=== PATIENT | male | born 1950 | race Two or more races ===

== ENCOUNTER 2016-06-17 00:56 | Emergency (ER) | payer OTHER ==
[~2016-06-17] VITALS: Ht 167.6 cm; Wt 113.4 kg
[~2016-06-17 00:56] MED LIST: ALBU18; ASPI81CH43; AZIT500T4 PO; BENA10TA3; BUDEPOW26; CLOT1CRE13; FLUO10TA18; FUR40T PO; GABA300C; GEMF600T; GLIP10TA82; INSUPOW; IPRA0.035; METO-169; METO2.5T11 PO; NITR0.4S31; OMEP20TA30; POTA10CA29; ROSU40TA; TER5T; [UNRECOGNIZED DRUG - CODE]; [UNRECOGNIZED DRUG - CODE]
[2016-06-17 03:07] LABS: Basophils # (auto) 0 uL; Basophils % (auto) 0.7 % (0.0-2.0); DEFINITIVE VIEW TRANSMISSION; Eosinophils # (auto) 0.1 uL; Eosinophils % (auto) 2.9 % (0.0-7.0); Hematocrit 29.1 % (41.0-53.0); Hemoglobin 9.3 g/dL (13.5-17.5); Lymphocytes # (auto) 1.4 uL; Lymphocytes % (auto) 32.5 % (10.0-50.0); Mean Corpuscular Hemoglobin 30.2 pg (28.0-32.0); Mean Corpuscular Hgb Conc. 31.8 g/dL (32.0-36.0); Monocytes # (auto) 0.6 uL; Monocytes % (auto) 14.6 % (0.0-12.0); Neutrophils # (auto) 2.2 uL; Neutrophils % (auto) 49.3 % (37.0-80.0); Platelet Count (auto) 131 10^3/uL (140-450); Red Cell Distribution Width 19.2 % (11.6-16.0); SUSPECT VIEW TRANSMISSION; White Blood Cell 4.4 10^3/uL (4.4-10.8)
[2016-06-17 03:09] LABS: Albumin 2.9 g/dL (3.4-5.0); Calcium 8.5 mg/dL (8.5-10.1); Magnesium 2.3 mg/dL (1.6-2.6); Potassium 3.9 mmol/L (3.5-5.1)
[2016-06-17 03:13] LABS: Bilirubin, Total 0.5 mg/dL (0.2-1.0); Total Protein 6.2 g/dL (6.4-8.2)
[2016-06-17 04:08] LABS: Temperature: 20.5 C (20.0-25.0)
[2016-06-17] MEDS ORDERED: MORPHINE SULFATE 4 MG/ML SYRG IV ONE (06:15)
[2016-06-17] MEDS ORDERED: ONDANSETRON HCL 4 MG/2 ML VIAL IV ONE (06:15)
[2016-06-17] MEDS ORDERED: ASPirin 81 mg TAB PO ONE (06:30)
[2016-06-17] MEDS ORDERED: ENOXAPARIN SOD 120 MG/0.8 ML SYRINGE SC ONE (08:00)
[2016-06-17 08:15] VITALS: BP 139/89
== END 2016-06-17 08:46 | disposition home or self-care (01) ==
LOC: ER 00:57
DX: I50.9 Heart failure, unspecified (principal); I11.0 Hypertensive heart disease with heart failure; I25.810 Atherosclerosis of coronary artery bypass graft(s) without angina pectoris
CPT/HCPCS: 36415; 71010; 80053; 83735; 83880; 84484; 85025; 93005; 94761; 96372; 96374; 96375; 99285; J1650; J2270; J2405

== ENCOUNTER 2016-07-02 22:03 | Emergency (ER) | payer OTHER ==
[2016-07-02 23:12] LABS: Basophils # (auto) 0 uL; Basophils % (auto) 0.6 % (0.0-2.0); Eosinophils # (auto) 0.1 uL; Hematocrit 33.1 % (41.0-53.0); Hemoglobin 10.7 g/dL (13.5-17.5); Lymphocytes # (auto) 1.2 uL; Lymphocytes % (auto) 22.9 % (10.0-50.0); Mean Corpuscular Hemoglobin 30.1 pg (28.0-32.0); Mean Corpuscular Hgb Conc. 32.4 g/dL (32.0-36.0); Mean Corpuscular Volume 92.9 fL (80.0-100.0); Mean Platelet Volume 7.1 fL (7.4-10.4); Monocytes % (auto) 18.1 % (0.0-12.0); Neutrophils % (auto) 56.4 % (37.0-80.0); Platelet Count (auto) 164 10^3/uL (140-450); Red Cell Distribution Width 17.6 % (11.6-16.0); White Blood Cell 5.3 10^3/uL (4.4-10.8)
[2016-07-02 23:34] LABS: BUN/Creatinine Ratio 31.1; Calcium 8.5 mg/dL (8.5-10.1); Magnesium 1.9 mg/dL (1.6-2.6); Potassium 4.4 mmol/L (3.5-5.1)
[2016-07-02 23:35] LABS: Bilirubin, Total 0.7 mg/dL (0.2-1.0); Total Protein 6.8 g/dL (6.4-8.2)
[2016-07-02 23:40] LABS: B-Type Natriuretic Peptide 33.76 pg/mL (0-100)
[2016-07-02 23:50] LABS: Partial Thromboplastin Time 26.9 sec (22.64-33.71); Prothrombin Time 12.1 sec (9.37-12.3)
[2016-07-02 23:51] LABS: Temperature: 22.5 C (20.0-25.0)
[2016-07-02 23:57] LABS: INR 1.17 (0.9-1.15)
[2016-07-03 00:24] VITALS: BP 117/64
== END 2016-07-03 02:04 | disposition home or self-care (01) ==
LOC: EDBD 22:03 → ER 22:03
DX: R07.89 Other chest pain (principal); K29.70 Gastritis, unspecified, without bleeding; E86.0 Dehydration; I25.810 Atherosclerosis of coronary artery bypass graft(s) without angina pectoris; Z95.1 Presence of aortocoronary bypass graft; I11.0 Hypertensive heart disease with heart failure; I50.9 Heart failure, unspecified; E11.9 Type 2 diabetes mellitus without complications; J44.9 Chronic obstructive pulmonary disease, unspecified; E78.5 Hyperlipidemia, unspecified; Z90.49 Acquired absence of other specified parts of digestive tract; Z79.4 Long term (current) use of insulin; Z79.82 Long term (current) use of aspirin; Z88.6 Allergy status to analgesic agent
CPT/HCPCS: 36415; 71010; 80053; 83735; 83880; 84443; 84484; 85025; 85049; 85379; 85610; 85730; 93005; 94761; 99285; J7030

== ENCOUNTER 2016-08-05 21:06 | Emergency (ER) | payer OTHER ==
[~2016-08-05] VITALS: Ht 170.2 cm; Wt 117.9 kg
[~2016-08-05 21:06] MED LIST changes: -AZIT500T4 PO; -BENA10TA3; +BENA5TAB3 PO; -FUR40T PO; +FURO40TA4 PO; -GABA300C; +GABA300C PO; +MAGN400C2 PO; -METO-169; -METO2.5T11 PO; -POTA10CA29; +SPIR50TA23 PO; +TIOTCAP INH; +TRAM50TA2 PO
[2016-08-05 21:52] LABS: Basophils # (auto) 0 uL; Basophils % (auto) 0.6 % (0.0-2.0); Eosinophils # (auto) 0.2 uL; Eosinophils % (auto) 3.3 % (0.0-7.0); Hematocrit 31.2 % (41.0-53.0); Hemoglobin 10.4 g/dL (13.5-17.5); Lymphocytes # (auto) 1.4 uL; Lymphocytes % (auto) 24.8 % (10.0-50.0); Mean Corpuscular Hemoglobin 30.6 pg (28.0-32.0); Mean Corpuscular Hgb Conc. 33.3 g/dL (32.0-36.0); Mean Corpuscular Volume 91.9 fL (80.0-100.0); Mean Platelet Volume 7.2 fL (7.4-10.4); Monocytes # (auto) 0.4 uL; Monocytes % (auto) 8.1 % (0.0-12.0); Neutrophils # (auto) 3.5 uL; Neutrophils % (auto) 63.2 % (37.0-80.0); Platelet Count (auto) 213 10^3/uL (140-450); Red Cell Distribution Width 17.9 % (11.6-16.0); White Blood Cell 5.5 10^3/uL (4.4-10.8)
[2016-08-05 22:20] LABS: Albumin 2.9 g/dL (3.4-5.0); BUN/Creatinine Ratio 19.1; Bilirubin, Total 0.5 mg/dL (0.2-1.0); Calcium 8.7 mg/dL (8.5-10.1); Potassium 3.8 mmol/L (3.5-5.1); Total Protein 6.7 g/dL (6.4-8.2)
[2016-08-06 00:25] LABS: B-Type Natriuretic Peptide 215.98 pg/mL (0-100); Temperature: 22.5 C (20.0-25.0)
[2016-08-06] MEDS ORDERED: FUROSEMIDE 40 MG/4 ML VIAL IV ONE (08:45)
[2016-08-06 12:15] VITALS: BP 128/67
== END 2016-08-06 14:22 | disposition home or self-care (01) ==
LOC: ER 21:14
DX: I11.0 Hypertensive heart disease with heart failure (principal); I50.20 Unspecified systolic (congestive) heart failure; J44.9 Chronic obstructive pulmonary disease, unspecified; E78.5 Hyperlipidemia, unspecified; I25.810 Atherosclerosis of coronary artery bypass graft(s) without angina pectoris; Z87.891 Personal history of nicotine dependence; Z79.82 Long term (current) use of aspirin; Z79.899 Other long term (current) drug therapy; Z88.6 Allergy status to analgesic agent; E11.9 Type 2 diabetes mellitus without complications; Z79.4 Long term (current) use of insulin; L03.119 Cellulitis of unspecified part of limb; R60.0 Localized edema
CPT/HCPCS: 36415; 71020; 80053; 82962; 83880; 84484; 85025; 87040; 93970; 94761; 96374; 99285; J1940

== ENCOUNTER 2016-09-06 06:25 | Inpatient (IN) | payer OTHER ==
[~2016-09-06] VITALS: Ht 165.1 cm; Wt 110.9 kg
[~2016-09-06 06:25] MED LIST changes: -LEVO500T3 PO
[2016-09-06 07:32] LABS: Basophils # (auto) 0 uL; Basophils % (auto) 0.2 % (0.0-2.0); DEFINITIVE VIEW TRANSMISSION; Eosinophils # (auto) 0.3 uL; Eosinophils % (auto) 4.1 % (0.0-7.0); Hematocrit 40.5 % (41.0-53.0); Hemoglobin 13.2 g/dL (13.5-17.5); Lymphocytes # (auto) 1.6 uL; Lymphocytes % (auto) 23.9 % (10.0-50.0); Mean Corpuscular Hemoglobin 29.8 pg (28.0-32.0); Mean Corpuscular Hgb Conc. 32.7 g/dL (32.0-36.0); Mean Platelet Volume 8.3 fL (7.4-10.4); Monocytes # (auto) 0.7 uL; Monocytes % (auto) 10.1 % (0.0-12.0); Neutrophils % (auto) 61.7 % (37.0-80.0); Platelet Count (auto) 243 10^3/uL (140-450); White Blood Cell 6.5 10^3/uL (4.4-10.8)
[2016-09-06 07:39] LABS: Red Cell Distribution Width 20.1 % (11.6-16.0)
[2016-09-06 07:53] LABS: Albumin 3.6 g/dL (3.4-5.0); Anion Gap 10 (5-15); Aspartate Aminotransferase 41 U/L (15-37); BUN/Creatinine Ratio 16.8; Blood Urea Nitrogen 20 mg/dL (7-18); Calcium 9.3 mg/dL (8.5-10.1); Carbon Dioxide 29 mmol/L (21-32); Chloride 99 mmol/L (98-107); GFR African American 78 mL/min; GFR Non-African American 65 mL/min; Glucose 252 mg/dL (74-106); Magnesium 2.1 mg/dL (1.6-2.6); Potassium 3.1 mmol/L (3.5-5.1); Sodium 138 mmol/L (136-145)
[2016-09-06 07:58] LABS: Alkaline Phosphatase 143 U/L (45-117); Bilirubin, Total 2.1 mg/dL (0.2-1.0)
[2016-09-06 08:17] LABS: Platelet Estimate Adequate
[2016-09-06 08:18] LABS: Anisocytosis Slight; Ovalocytes FEW
[2016-09-06 09:49] LABS: Urine Bilirubin Negative (Negative); Urine Blood Negative /uL (Negative); Urine Color Yellow (Yellow); Urine Hyaline Cast FEW /lpf (0 - 2); Urine Ketone Negative (Negative); Urine Mucus FEW (None Seen); Urine Nitrite Negative (Negative); Urine RBC 2 /hpf (0 - 3); Urine Urobilinogen Normal (Negative); Urine WBC Clumps PRESENT /hpf (None Seen); Urine pH 5.5 (5.0-8.0)
[2016-09-06 10:00] LABS: Urine Glucose 3+ mg/dL (Normal)
[2016-09-06] MEDS ORDERED: SODIUM CHLORIDE 0.9% 1,000 ML IV ONE (10:22)
[2016-09-06] MEDS ORDERED: InsuLIN REG 1unit/0.01ml Soln (100units/ml) IV ONE (10:30)
[2016-09-06] MEDS ORDERED: CIPROFLOXACIN HCL 500 MG TAB PO ONE (10:30)
[2016-09-06] MEDS ORDERED: POTASSIUM CHL 10% (20 MEQ/15ML) ORAL SOLN PO ONE (11:00)
[2016-09-06] MEDS ORDERED: ENOXAPARIN SOD 40 MG/0.4 ML SYRINGE SC ONE (12:45)
[2016-09-06] MEDS ORDERED: ASPirin 81 mg TAB PO ONE (12:45)
[2016-09-06] MEDS ORDERED: DEXTROSE (50%) 50ML SYRG IV PRN (12:45)
[2016-09-06] MEDS ORDERED: ACETAMINOPHEN 500 MG TAB PO PRN (12:45)
[2016-09-06] MEDS ORDERED: NITROGLYCERIN 0.4 MG SL TAB SL PRN (12:45)
[2016-09-06] MEDS ORDERED: LORazepam 0.5 MG TAB PO PRN (12:45)
[2016-09-06] MEDS ORDERED: MORPHINE SULF INJ 2 MG/ML SYRINGE 1ML IV PRN ×2 (12:45)
[2016-09-06] MEDS ORDERED: TEMAZEPAM 15 MG CAP PO PRN (12:45)
[2016-09-06] MEDS ORDERED: PROMETHAZINE HCL 25 MG/ML 1ML IV PRN (12:45)
[2016-09-06] MEDS ORDERED: LACTULOSE 20Gm/30ML SOLN PO PRN (12:45)
[2016-09-06] MEDS ORDERED: cefTRIAXone 1GM/50ML D5W 50 ML IV ONE (12:45)
[2016-09-06] MEDS ORDERED: HYDROcodone-ACET 5/325MG TAB PO PRN (12:45)
[2016-09-06 15:47] LABS: Temperature: 23.3 C (20.0-25.0)
[2016-09-06] MEDS: SODIUM CHLORIDE 0.9% 1,000 ML IV SCH (17:04)
[2016-09-06] MEDS: ACCU-CHEK COMFORT CURVE STRIP VI SCH ×2 (17:08→22:08)
[2016-09-06] MEDS: InsuLIN REG 1unit/0.01ml Soln (100units/ml) SC SCH ×2 (17:13→22:10)
[2016-09-06 20:30] VITALS: BP 123/69
[2016-09-06 22:00] VITALS: BP 123/69
[2016-09-06] MEDS: FAMOTIDINE 20 MG TAB PO SCH (22:08)
[2016-09-06] MEDS ORDERED: HALOPERIDOL LACTATE 5 MG/ML INJ VIAL IM PRN ×2 (23:00→23:30)
[2016-09-07] VITALS (7 sets, daily range): BP systolic 106–134; BP diastolic 59–81
[2016-09-07] MEDS: SODIUM CHLORIDE 0.9% 1,000 ML IV SCH ×2 (01:11→09:39)
[2016-09-07 06:01] LABS: Basophils # (auto) 0 uL; Basophils % (auto) 0.6 % (0.0-2.0); DEFINITIVE VIEW TRANSMISSION; Eosinophils # (auto) 0.3 uL; Eosinophils % (auto) 5.3 % (0.0-7.0); Hematocrit 36.7 % (41.0-53.0); Hemoglobin 11.8 g/dL (13.5-17.5); Lymphocytes # (auto) 1.6 uL; Lymphocytes % (auto) 34.4 % (10.0-50.0); Mean Corpuscular Hemoglobin 29.3 pg (28.0-32.0); Mean Corpuscular Hgb Conc. 32.2 g/dL (32.0-36.0); Mean Platelet Volume 7.6 fL (7.4-10.4); Monocytes # (auto) 0.6 uL; Monocytes % (auto) 13.1 % (0.0-12.0); Neutrophils # (auto) 2.2 uL; Neutrophils % (auto) 46.6 % (37.0-80.0); Platelet Count (auto) 177 10^3/uL (140-450); Red Cell Distribution Width 19.2 % (11.6-16.0); White Blood Cell 4.8 10^3/uL (4.4-10.8)
[2016-09-07 06:26] LABS: Albumin 3.3 g/dL (3.4-5.0); BUN/Creatinine Ratio 21.4; Bilirubin, Total 1.2 mg/dL (0.2-1.0); Calcium 8.8 mg/dL (8.5-10.1); Potassium 3.3 mmol/L (3.5-5.1); Total Protein 7.2 g/dL (6.4-8.2)
[2016-09-07] MEDS: ACCU-CHEK COMFORT CURVE STRIP VI SCH ×4 (06:33→22:06)
[2016-09-07] MEDS: InsuLIN REG 1unit/0.01ml Soln (100units/ml) SC SCH ×3 (06:35→17:36)
[2016-09-07] MEDS ORDERED: cefTRIAXone 1GM/50ML D5W 50 ML IV SCH (09:00)
[2016-09-07] MEDS: ASPirin 81 mg TAB PO SCH (09:39)
[2016-09-07] MEDS: FAMOTIDINE 20 MG TAB PO SCH ×2 (09:39→22:04)
[2016-09-07] MEDS: ENOXAPARIN SOD 40 MG/0.4 ML SYRINGE SC SCH (09:39)
[2016-09-07] MEDS ORDERED: POTASSIUM CHL 10 Meq TABLET PO ONE (14:45)
[2016-09-07] MEDS ORDERED: DEXTROSE (50%) 50ML SYRG IV PRN (14:45)
[2016-09-07] MEDS ORDERED: GABAPENTIN 300 MG CAP PO ONE (15:00)
[2016-09-07] MEDS ORDERED: BENAZEPRIL HCL 10 MG TAB PO ONE (15:00)
[2016-09-07] MEDS ORDERED: InsuLIN REG 1unit/0.01ml Soln (100units/ml) SC SCH (22:00)
[2016-09-07] MEDS ORDERED: TERAZOSIN HCL 5 MG CAP PO SCH (22:00)
[2016-09-07] MEDS ORDERED: ATORVASTATIN 20 MG TAB PO SCH (22:00)
[2016-09-07] MEDS: GABAPENTIN 300 MG CAP PO SCH (22:04)
[2016-09-08 05:00] VITALS: BP 107/57
[2016-09-08] MEDS: GABAPENTIN 300 MG CAP PO SCH (06:06)
[2016-09-08] MEDS: InsuLIN REG 1unit/0.01ml Soln (100units/ml) SC SCH ×2 (06:45→11:30)
[2016-09-08] MEDS: ACCU-CHEK COMFORT CURVE STRIP VI SCH ×2 (06:45→11:56)
[2016-09-08 08:09] VITALS: BP 96/43
[2016-09-08 08:20] VITALS: BP 96/43
[2016-09-08] MEDS ORDERED: LEVOFLOXACIN 500 MG TAB PO SCH (10:00)
[2016-09-08] MEDS ORDERED: BENAZEPRIL HCL 10 MG TAB PO SCH (10:00)
[2016-09-08 11:47] VITALS: BP 110/61
[2016-09-08] MEDS: ENOXAPARIN SOD 40 MG/0.4 ML SYRINGE SC SCH (11:54)
[2016-09-08] MEDS: FAMOTIDINE 20 MG TAB PO SCH (11:55)
[2016-09-08] MEDS: ASPirin 81 mg TAB PO SCH (11:55)
[2016-09-08] MEDS ORDERED: LEVO500T3 PO ×2 (13:12)
[2016-09-08 16:04] VITALS: BP 110/61
== END 2016-09-08 16:55 | disposition home or self-care (01) | DRG 682 ==
LOC: ER 06:28 → TELE 06:29 → TELE-WESTW 20:32 → WEST WING 09-07 13:31
PROVIDERS: ADMIT Internal Medicine; ATTEND Internal Medicine
DX: N17.9 Acute kidney failure, unspecified (principal); G93.41 Metabolic encephalopathy; N39.0 Urinary tract infection, site not specified; I13.0 Hypertensive heart and chronic kidney disease with heart failure and stage 1 through stage 4 chronic kidney disease, or unspecified chronic kidney disease; Z68.41 Body mass index [BMI] 40.0-44.9, adult; E87.6 Hypokalemia; E78.5 Hyperlipidemia, unspecified; I25.10 Atherosclerotic heart disease of native coronary artery without angina pectoris; I50.9 Heart failure, unspecified; E11.22 Type 2 diabetes mellitus with diabetic chronic kidney disease; E11.42 Type 2 diabetes mellitus with diabetic polyneuropathy; E66.01 Morbid (severe) obesity due to excess calories; E86.0 Dehydration; G47.33 Obstructive sleep apnea (adult) (pediatric); J44.9 Chronic obstructive pulmonary disease, unspecified; L98.9 Disorder of the skin and subcutaneous tissue, unspecified; N18.9 Chronic kidney disease, unspecified; N40.0 Benign prostatic hyperplasia without lower urinary tract symptoms; Z79.4 Long term (current) use of insulin; Z95.1 Presence of aortocoronary bypass graft; Z80.0 Family history of malignant neoplasm of digestive organs; Z86.718 Personal history of other venous thrombosis and embolism; Z87.891 Personal history of nicotine dependence; Z88.5 Allergy status to narcotic agent
CPT/HCPCS: 36415; 70450; 71010; 80053; 80061; 80320; 81001; 82140; 82550; 82607; 82746; 82962; 83036; 83735; 84443; 84484; 85025; 85652; 87081; 87086; 93005; 93886; 94660; 95819; 96361; 96365; 96366; 96372; 96375; G0434; J0696; J1815

== ENCOUNTER → 2016-09-06 | Emergency (ER) | payer OTHER ==
[~2016-09-06] MED LIST changes: +CEPH-37 PO; -GLIP10TA82; +LEVO500T3 PO
== END | disposition left against medical advice (07) ==
LOC: ER 00:41
DX: R53.1 Weakness (principal); Z53.21 Procedure and treatment not carried out due to patient leaving prior to being seen by health care provider
CPT/HCPCS: J7030 ×3; 93005

== ENCOUNTER 2017-01-30 18:35 | Emergency (ER) | payer OTHER ==
[~2017-01-30] VITALS: Ht 170.2 cm; Wt 121.6 kg
[~2017-01-30 18:35] MED LIST changes: -ASPI81CH43; +ATOR80TA PO; -BENA5TAB3 PO; +BENA5TAB5 PO; -BUDEPOW26; -CEPH-37 PO; -CLOT1CRE13; +DIGO0.124; +FERR325T PO; -FURO40TA4 PO; +GABA-497 PO; +HYDR-4663 PO; +INSLANTI SC; +INSUINJ3 SC; -INSUPOW; -NITR0.4S31; -ROSU40TA; -[UNRECOGNIZED DRUG - CODE]
[2017-01-30 18:52] VITALS: BP 112/64
[2017-01-30 19:38] LABS: Basophils # (auto) 0 uL; Basophils % (auto) 0.7 % (0.0-2.0); CONDITION Y; DEFINITIVE SEE PRINTOUT; Eosinophils # (auto) 0.1 uL; Eosinophils % (auto) 3.6 % (0.0-7.0); Hematocrit 38.4 % (41.0-53.0); Hemoglobin 13.3 g/dL (13.5-17.5); Lymphocytes # (auto) 1.3 uL; Lymphocytes % (auto) 33.4 % (10.0-50.0); Mean Corpuscular Hemoglobin 35.2 pg (28.0-32.0); Mean Corpuscular Hgb Conc. 34.6 g/dL (32.0-36.0); Mean Corpuscular Volume 101.7 fL (80.0-100.0); Mean Platelet Volume 7.9 fL (7.4-10.4); Monocytes # (auto) 0.5 uL; Monocytes % (auto) 12.2 % (0.0-12.0); Neutrophils # (auto) 1.9 uL; Neutrophils % (auto) 50.1 % (37.0-80.0); Platelet Count (auto) 114 10^3/uL (140-450); White Blood Cell 3.8 10^3/uL (4.4-10.8)
[2017-01-30 20:01] LABS: Albumin 3.4 g/dL (3.4-5.0); Anion Gap 8 (5-15); Aspartate Aminotransferase 52 U/L (15-37); BUN/Creatinine Ratio 15.4; Blood Urea Nitrogen 14 mg/dL (7-18); Carbon Dioxide 27 mmol/L (21-32); Chloride 103 mmol/L (98-107); GFR African American 107 mL/min; GFR Non-African American 88 mL/min; Glucose 59 mg/dL (74-106); Magnesium 2.3 mg/dL (1.6-2.6); Potassium 3.7 mmol/L (3.5-5.1); Sodium 138 mmol/L (136-145)
[2017-01-30 20:06] LABS: Alkaline Phosphatase 203 U/L (45-117); Bilirubin, Total 0.8 mg/dL (0.2-1.0)
== END 2017-01-30 23:58 | disposition left against medical advice (07) ==
LOC: ER 18:39
DX: R53.1 Weakness (principal); R51 Headache; Z53.21 Procedure and treatment not carried out due to patient leaving prior to being seen by health care provider
CPT/HCPCS: 36415; 70450; 80053; 83735; 84484; 85025; 93005

== ENCOUNTER 2017-04-23 04:45 | Inpatient (IN) | payer OTHER ==
[~2017-04-23] VITALS: Ht 172.7 cm; Wt 130.2 kg
[~2017-04-23 04:45] MED LIST changes: +FURO40TA4 PO; -GABA-497 PO; -HYDR-4663 PO; +HYDR-4683 PO
[2017-04-23] MEDS ORDERED: FUROSEMIDE 40 MG/4 ML VIAL IV ONE (08:00)
[2017-04-23] MEDS ORDERED: ONDANSETRON HCL 4 MG/2 ML VIAL IV ONE (08:00)
[2017-04-23 08:11] LABS: Basophils # (auto) 0 uL; Eosinophils # (auto) 0.2 uL; Hematocrit 32.3 % (41.0-53.0); Lymphocytes # (auto) 1.1 uL; Monocytes # (auto) 0.5 uL; Neutrophils # (auto) 2.2 uL; Red Cell Distribution Width 16.3 % (11.8-14.3)
[2017-04-23 08:13] LABS: Basophils % (auto) 0.6 % (0.0-2.0); Eosinophils % (auto) 4.5 % (0.0-7.0); Hemoglobin 11.1 g/dL (13.5-17.5); Lymphocytes % (auto) 28.1 % (10.0-50.0); Mean Corpuscular Hemoglobin 36.2 pg (28.0-32.0); Mean Corpuscular Hgb Conc. 34.3 g/dL (32.0-36.0); Mean Corpuscular Volume 105.6 fL (80.0-100.0); Mean Platelet Volume 7.3 fL (6.9-10.8); Monocytes % (auto) 11.6 % (0.0-12.0); Neutrophils % (auto) 55.2 % (37.0-80.0); Platelet Count (auto) 105 10^3/uL (140-450)
[2017-04-23 08:34] LABS: INR 1.11 (0.9-1.15); Partial Thromboplastin Time 26.3 sec (22.64-33.71); Prothrombin Time 12.1 sec (9.37-12.3)
[2017-04-23 08:35] LABS: Albumin 3.1 g/dL (3.4-5.0); BUN/Creatinine Ratio 38.2; Bilirubin, Total 1.4 mg/dL (0.2-1.0); Calcium 9.2 mg/dL (8.5-10.1); Total Protein 6.3 g/dL (6.4-8.2)
[2017-04-23 09:02] LABS: Urine RBC None Seen /hpf (0 - 3)
[2017-04-23 09:13] LABS: Urine Bilirubin Negative (Negative); Urine Blood Negative /uL (Negative); Urine Color Yellow (Yellow); Urine Glucose Normal (Normal); Urine Ketone Negative (Negative); Urine Nitrite Negative (Negative); Urine Urobilinogen Normal (Negative); Urine pH 6.5 (5.0-8.0)
[2017-04-23 09:32] LABS: B-Type Natriuretic Peptide 70.31 pg/mL (0-100)
[2017-04-23 09:33] LABS: Temperature: 20.5 C (20.0-25.0)
[2017-04-23] MEDS ORDERED: DEXTROSE (50%) 50ML SYRG IV PRN (10:15)
[2017-04-23] MEDS ORDERED: SPIRONOLACTONE 25 MG TAB PO ONE (10:15)
[2017-04-23] MEDS ORDERED: MORPHINE SULFATE 10 MG/ML INJ 1ML SDV IV PRN (10:15)
[2017-04-23] MEDS ORDERED: PANTOPRAZOLE 40 MG/10 ML VIAL IV ONE (10:15)
[2017-04-23] MEDS ORDERED: ONDANSETRON HCL 4 MG/2 ML VIAL IV PRN (10:15)
[2017-04-23] MEDS ORDERED: NITROGLYCERIN 0.4 MG SL TAB SL PRN (10:15)
[2017-04-23] MEDS ORDERED: ENALAPRIL MALEATE 2.5 MG TAB PO ONE (10:15)
[2017-04-23] MEDS: InsuLIN REG 1unit/0.01ml Soln (100units/ml) SC SCH ×3 (11:21→21:40)
[2017-04-23] MEDS: ACCU-CHEK COMFORT CURVE STRIP VI SCH ×3 (11:21→21:36)
[2017-04-23] MEDS ORDERED: METOCLOPRAMIDE HCL 10 MG TAB PO SCH (11:30)
[2017-04-23 12:41] LABS: Cholesterol 132 mg/dL (< 200); HDL Cholesterol 60 mg/dL (40-59); LDL Cholesterol 48 mg/dL (< 100); Triglycerides 151 mg/dL (< 150)
[2017-04-23] MEDS: OCTREOTIDE ACETATE 500 MCG in SODIUM CHL 0.9% 99 ML IV SCH ×2 (13:17→21:40)
[2017-04-23] MEDS: GABAPENTIN 300 MG CAP PO SCH ×2 (14:12→21:28)
[2017-04-23 14:42] VITALS: BP 133/77
[2017-04-23] MEDS ORDERED: LORazepam 0.5 MG TAB PO PRN (17:15)
[2017-04-23] MEDS ORDERED: FUROSEMIDE 40 MG/4 ML VIAL IV SCH (18:00)
[2017-04-23] MEDS ORDERED: POTASSIUM CHL 20 Meq TABLET PO SCH (18:00)
[2017-04-23 19:08] LABS: Basophils # (auto) 0 uL; Hemoglobin 10.9 g/dL (13.5-17.5); Lymphocytes # (auto) 1.2 uL; Mean Corpuscular Hemoglobin 36.3 pg (28.0-32.0); Monocytes # (auto) 0.5 uL; Neutrophils # (auto) 2.2 uL
[2017-04-23 19:09] LABS: Basophils % (auto) 0.7 % (0.0-2.0); Eosinophils # (auto) 0.2 uL; Eosinophils % (auto) 3.9 % (0.0-7.0); Hematocrit 32.1 % (41.0-53.0); Lymphocytes % (auto) 28.9 % (10.0-50.0); Mean Corpuscular Hgb Conc. 34.1 g/dL (32.0-36.0); Mean Corpuscular Volume 106.5 fL (80.0-100.0); Mean Platelet Volume 7.1 fL (6.9-10.8); Monocytes % (auto) 12.6 % (0.0-12.0); Neutrophils % (auto) 53.9 % (37.0-80.0); Nucleated Red Blood Cells % 0.2 %; Platelet Count (auto) 92 10^3/uL (140-450); Red Cell Distribution Width 16.4 % (11.8-14.3)
[2017-04-23 19:24] LABS: Platelet Estimate Decreased
[2017-04-23 19:25] LABS: Macrocytosis Moderate
[2017-04-23] MEDS: TERAZOSIN HCL 5 MG CAP PO SCH (21:28)
[2017-04-23] MEDS: PANTOPRAZOLE 40 MG/10 ML VIAL IV SCH (21:28)
[2017-04-23] MEDS ORDERED: INSULIN DETEMIR(LEVEMIR) 1unit/0.01ml Soln (100units/ml) SC SCH (22:00)
[2017-04-24 04:00] LABS: Basophils # (auto) 0 uL; Eosinophils # (auto) 0.2 uL; Hemoglobin 9.9 g/dL (13.5-17.5); Lymphocytes # (auto) 1.3 uL; Monocytes # (auto) 0.5 uL; Neutrophils # (auto) 1.8 uL
[2017-04-24 04:02] LABS: Basophils % (auto) 0.7 % (0.0-2.0); Eosinophils % (auto) 5.2 % (0.0-7.0); Hematocrit 28.7 % (41.0-53.0); Lymphocytes % (auto) 34.8 % (10.0-50.0); Mean Corpuscular Hemoglobin 36.8 pg (28.0-32.0); Mean Corpuscular Hgb Conc. 34.5 g/dL (32.0-36.0); Mean Corpuscular Volume 106.4 fL (80.0-100.0); Mean Platelet Volume 7.2 fL (6.9-10.8); Monocytes % (auto) 12.1 % (0.0-12.0); Neutrophils % (auto) 47.2 % (37.0-80.0); Platelet Count (auto) 84 10^3/uL (140-450); Red Cell Distribution Width 16.3 % (11.8-14.3); White Blood Cell 3.8 10^3/uL (4.4-10.8)
[2017-04-24 04:15] LABS: BUN/Creatinine Ratio 33.7; Calcium 8.8 mg/dL (8.5-10.1); Potassium 4.1 mmol/L (3.5-5.1)
[2017-04-24] MEDS: HYDROcodone-ACET 5/325MG TAB PO PRN ×2 (04:30→15:59)
[2017-04-24] MEDS: GABAPENTIN 300 MG CAP PO SCH ×3 (06:00→22:00)
[2017-04-24] MEDS: ACCU-CHEK COMFORT CURVE STRIP VI SCH ×4 (06:08→22:00)
[2017-04-24] MEDS: InsuLIN REG 1unit/0.01ml Soln (100units/ml) SC SCH ×4 (06:12→22:00)
[2017-04-24] MEDS: OCTREOTIDE ACETATE 500 MCG in SODIUM CHL 0.9% 99 ML IV SCH ×2 (08:45→19:15)
[2017-04-24] MEDS: SPIRONOLACTONE 25 MG TAB PO SCH (09:19)
[2017-04-24] MEDS: GEMFIBROZIL 600 MG TAB PO SCH (09:20)
[2017-04-24] MEDS: FLUoxetine HCL 10 MG CAP PO SCH (09:20)
[2017-04-24] MEDS: PANTOPRAZOLE 40 MG/10 ML VIAL IV SCH (09:24)
[2017-04-24] MEDS ORDERED: ENALAPRIL MALEATE 2.5 MG TAB PO SCH (10:00)
[2017-04-24] MEDS ORDERED: PANTOPRAZOLE 40 MG/10 ML VIAL IV SCH (10:00)
[2017-04-24] MEDS ORDERED: PROPOFOL 10 MG/ML 20 ML IV ONE (12:01)
[2017-04-24] MEDS ORDERED: ONDANSETRON HCL 4 MG/2 ML VIAL ONE (12:01)
[2017-04-24] MEDS ORDERED: fentaNYL CITRATE 100 MCG/2 ML VL ONE (12:01)
[2017-04-24] MEDS ORDERED: MIDAZOLAM HCL 1MG/1ML-2 ML VIAL ONE (12:01)
[2017-04-24] MEDS ORDERED: METOCLOPRAMIDE HCL 5MG/ml INJ 2ml VIAL IV ONE (12:30)
[2017-04-24] MEDS ORDERED: ACCU-CHEK COMFORT CURVE STRIP VI ONE (12:30)
[2017-04-24] MEDS ORDERED: fentaNYL CITRATE 100 MCG/2 ML VL IV ONE (13:00)
[2017-04-24] MEDS: TERAZOSIN HCL 5 MG CAP PO SCH (22:00)
[2017-04-24] MEDS: PANTOPRAZOLE 40 MG TAB PO SCH (22:00)
[2017-04-25] MEDS: OCTREOTIDE ACETATE 500 MCG in SODIUM CHL 0.9% 99 ML IV SCH ×2 (01:19→14:45)
[2017-04-25] MEDS: ALBUTEROL SULF 2.5 MG/0.5ML(0.5%) NEB SOLN NEB PRN ×2 (05:45→12:21)
[2017-04-25] MEDS: IPRATROPIUM BROM 0.5 MG/2.5ML INH SOL NEB PRN ×2 (05:45→12:21)
[2017-04-25] MEDS: GABAPENTIN 300 MG CAP PO SCH ×2 (06:00→13:33)
[2017-04-25] MEDS: ACCU-CHEK COMFORT CURVE STRIP VI SCH ×2 (07:41→11:53)
[2017-04-25] MEDS: InsuLIN REG 1unit/0.01ml Soln (100units/ml) SC SCH ×2 (07:43→12:30)
[2017-04-25] MEDS: PANTOPRAZOLE 40 MG TAB PO SCH (10:00)
[2017-04-25] MEDS: SPIRONOLACTONE 25 MG TAB PO SCH (10:00)
[2017-04-25] MEDS: FLUoxetine HCL 10 MG CAP PO SCH (10:00)
[2017-04-25] MEDS: GEMFIBROZIL 600 MG TAB PO SCH (10:00)
[2017-04-25 12:00] VITALS: BP 104/61
[2017-04-25 12:31] VITALS: BP 112/65
[2017-04-25] MEDS: HYDROcodone-ACET 5/325MG TAB PO PRN (13:33)
[2017-04-25 15:18] VITALS: BP 104/61
[2017-04-25 16:10] VITALS: BP 131/65
== END 2017-04-25 16:35 | disposition home or self-care (01) | DRG 291 ==
LOC: ER 04:46 → TELE 04:47 → DOU IN ICU 04-25 08:10
PROVIDERS: ADMIT Internal Medicine; ATTEND Internal Medicine
PROC: 0DJ08ZZ Inspection of Upper Intestinal Tract, Via Natural or Artificial Opening Endoscopic (ICD-10-PCS; principal; 2017-04-24 12:05)
DX: I13.0 Hypertensive heart and chronic kidney disease with heart failure and stage 1 through stage 4 chronic kidney disease, or unspecified chronic kidney disease (principal); I50.33 Acute on chronic diastolic (congestive) heart failure; E11.43 Type 2 diabetes mellitus with diabetic autonomic (poly)neuropathy; D69.6 Thrombocytopenia, unspecified; K31.84 Gastroparesis; E66.01 Morbid (severe) obesity due to excess calories; K76.6 Portal hypertension; Z68.41 Body mass index [BMI] 40.0-44.9, adult; J44.9 Chronic obstructive pulmonary disease, unspecified; K29.50 Unspecified chronic gastritis without bleeding; E78.5 Hyperlipidemia, unspecified; N18.9 Chronic kidney disease, unspecified; F32.9 Major depressive disorder, single episode, unspecified; I25.10 Atherosclerotic heart disease of native coronary artery without angina pectoris; K21.9 Gastro-esophageal reflux disease without esophagitis; D64.9 Anemia, unspecified; K74.60 Unspecified cirrhosis of liver; Z95.1 Presence of aortocoronary bypass graft; Z99.81 Dependence on supplemental oxygen; Z79.4 Long term (current) use of insulin; Z79.899 Other long term (current) drug therapy; Z88.5 Allergy status to narcotic agent; Z87.891 Personal history of nicotine dependence; Z87.440 Personal history of urinary (tract) infections; Z82.49 Family history of ischemic heart disease and other diseases of the circulatory system; Z83.3 Family history of diabetes mellitus
CPT/HCPCS: 36415; 43235; 71010; 71020; 74176; 80048; 80053; 80061; 81001; 82140; 82962; 83036; 83735; 83880; 84484; 85025; 85610; 85730; 87493; 93005; 93306; 94640; 94761; 96374; 96375; C9113; J1815; J2250; J2405; J2704

== ENCOUNTER 2017-12-30 23:58 | Inpatient (IN) | payer OTHER ==
[~2017-12-30] VITALS: Ht 172.7 cm; Wt 50.7 kg
[~2017-12-30 23:58] MED LIST changes: -ALBU18; -BENA5TAB5 PO; -DIGO0.124; +FERR-20 PO; -FERR325T PO; -GEMF600T; -INSLANTI SC; -IPRA0.035; -SPIR50TA23 PO; +SPIR50TA5 PO; -TRAM50TA2 PO
[2017-12-31 00:44] LABS: Basophils # (auto) 0 uL; Eosinophils # (auto) 0.2 uL; Lymphocytes # (auto) 0.6 uL; Monocytes # (auto) 0.4 uL; White Blood Cell 3.6 10^3/uL (4.4-10.8)
[2017-12-31 00:46] LABS: Basophils % (auto) 0.5 % (0.0-2.0); Eosinophils % (auto) 4.7 % (0.0-7.0); Hemoglobin 10.3 g/dL (13.5-17.5); Lymphocytes % (auto) 15.9 % (10.0-50.0); Mean Corpuscular Hemoglobin 35.4 pg (28.0-32.0); Mean Corpuscular Hgb Conc. 33.4 g/dL (32.0-36.0); Monocytes % (auto) 11.6 % (0.0-12.0); Neutrophils # (auto) 2.5 uL; Neutrophils % (auto) 67.3 % (37.0-80.0); Nucleated Red Blood Cells % 0.2 %; Platelet Count (auto) 72 10^3/uL (140-450); Red Blood Cells 2.92 10^6/uL (4.5-5.90); Red Cell Distribution Width 15.5 % (11.8-14.3)
[2017-12-31] MEDS ORDERED: IOHEXOL 350 MG/ML 100ML IJ ONE ×2 (00:53→15:27)
[2017-12-31 00:56] LABS: INR 1.07 (0.9-1.15); Partial Thromboplastin Time 27.3 sec (23.78-33.04); Prothrombin Time 11.4 sec (9.27-12.13)
[2017-12-31 01:00] LABS: Albumin 3.3 g/dL (3.4-5.0); BUN/Creatinine Ratio 21.6; Calcium 8.4 mg/dL (8.5-10.1); Potassium 5.2 mmol/L (3.5-5.1)
[2017-12-31 01:05] LABS: Total Protein 6.9 g/dL (6.4-8.2)
[2017-12-31] MEDS ORDERED: DILTIAZEM HCL 25 MG/5 ML VIAL IV ONE (01:15)
[2017-12-31] MEDS ORDERED: FUROSEMIDE 100 MG/10ML VIAL IV ONE (01:15)
[2017-12-31 03:55] LABS: Urine Amorphous Crystal FEW /hpf (None Seen); Urine Bacteria FEW /hpf (None Seen); Urine Blood 1+ /uL (Negative); Urine Specific Gravity 1.008 (1.001-1.035); Urine WBC 3 /hpf (0 - 3)
[2017-12-31] MEDS ORDERED: MORPHINE SULF INJ 2 MG/ML SYRINGE 1ML IV PRN (07:00)
[2017-12-31] MEDS ORDERED: NITROGLYCERIN 0.4 MG SL TAB SL PRN (07:00)
[2017-12-31] MEDS ORDERED: ONDANSETRON HCL 4 MG/2 ML VIAL IV PRN (07:00)
[2017-12-31] MEDS ORDERED: DEXTROSE (50%) 50ML SYRG IV PRN (07:00)
[2017-12-31] MEDS: FERROUS SULFATE 325 MG TAB PO SCH ×2 (08:37→18:20)
[2017-12-31 08:40] LABS: BUN/Creatinine Ratio 21.6
[2017-12-31] MEDS ORDERED: ENOXAPARIN SOD 30 MG/0.3 ML SYRINGE SC SCH (10:00)
[2017-12-31] MEDS ORDERED: HYDROcodone-ACET 10/325MG TAB PO ONE (11:00)
[2017-12-31] MEDS: PANTOPRAZOLE 40 MG TAB PO SCH (11:05)
[2017-12-31] MEDS: InsuLIN REG 1unit/0.01ml Soln (100units/ml) SC SCH ×2 (12:21→18:22)
[2017-12-31] MEDS: ACCU-CHEK COMFORT CURVE STRIP VI SCH ×2 (12:23→18:22)
[2017-12-31] MEDS ORDERED: VANCOMYCIN PER PHARMACY 0 MG IV SCH (15:30)
[2017-12-31] MEDS ORDERED: cefTRIAXone 1GM/10ml IVPUSH 10 ML IV ONE (15:30)
[2017-12-31] MEDS ORDERED: VANCOMYCIN 1GM/250ML 250 ML IV ONE ×2 (15:30→18:00)
[2017-12-31] MEDS ORDERED: ENOXAPARIN SOD 150 MG/1 ML SYRINGE SC SCH (16:33)
[2017-12-31 17:00] VITALS: BP 122/55
[2017-12-31] MEDS ORDERED: ENOXAPARIN SOD 100 MG/1 ML SYRINGE SC ONE (17:00)
[2017-12-31 17:18] VITALS: BP 122/55
[2017-12-31] MEDS ORDERED: CHOL20007 PO (17:43)
[2017-12-31] MEDS ORDERED: FURO40TA4 PO (17:43)
[2017-12-31] MEDS ORDERED: ASPI81TA27 PO (17:43)
[2017-12-31] MEDS ORDERED: GABA-339 PO (17:43)
[2017-12-31] MEDS: FUROSEMIDE 20 MG/2 ML VIAL IV SCH (18:31)
[2017-12-31] MEDS: HYDROcodone-ACET 10/325MG TAB PO PRN (20:08)
[2017-12-31 21:40] VITALS: BP 124/53
[2017-12-31] MEDS: ATORVASTATIN 20 MG TAB PO SCH (22:01)
[2017-12-31] MEDS: TERAZOSIN HCL 5 MG CAP PO SCH (22:05)
[2017-12-31] MEDS: TEMAZEPAM 15 MG CAP PO PRN (23:23)
[2018-01-01] MEDS: ACCU-CHEK COMFORT CURVE STRIP VI SCH ×4 (01:06→17:04)
[2018-01-01] MEDS: InsuLIN REG 1unit/0.01ml Soln (100units/ml) SC SCH ×4 (01:06→17:04)
[2018-01-01] MEDS: HYDROcodone-ACET 10/325MG TAB PO PRN ×3 (03:16→20:41)
[2018-01-01 04:52] VITALS: BP 130/54
[2018-01-01] MEDS ORDERED: VANCOMYCIN 1,250 MG in D5W 5% 250 ML IV SCH (05:00)
[2018-01-01] MEDS: FUROSEMIDE 20 MG/2 ML VIAL IV SCH ×2 (06:41→17:04)
[2018-01-01 07:14] LABS: Basophils # (auto) 0 uL; Eosinophils # (auto) 0.2 uL; Hemoglobin 10.5 g/dL (13.5-17.5); Lymphocytes # (auto) 0.7 uL; Neutrophils # (auto) 2.9 uL; White Blood Cell 4.5 10^3/uL (4.4-10.8)
[2018-01-01 07:16] LABS: Basophils % (auto) 0.6 % (0.0-2.0); Eosinophils % (auto) 3.9 % (0.0-7.0); Hematocrit 30.4 % (41.0-53.0); Lymphocytes % (auto) 16.1 % (10.0-50.0); Mean Corpuscular Hemoglobin 36.6 pg (28.0-32.0); Mean Corpuscular Hgb Conc. 34.5 g/dL (32.0-36.0); Mean Corpuscular Volume 106.1 fL (80.0-100.0); Monocytes # (auto) 0.7 uL; Monocytes % (auto) 14.6 % (0.0-12.0); Neutrophils % (auto) 64.8 % (37.0-80.0); Red Blood Cells 2.86 10^6/uL (4.5-5.90); Red Cell Distribution Width 15.6 % (11.8-14.3)
[2018-01-01 07:20] LABS: Platelet Count (auto) 79 10^3/uL (140-450)
[2018-01-01 07:34] LABS: Albumin 3.4 g/dL (3.4-5.0); BUN/Creatinine Ratio 26.3; Bilirubin, Total 1.5 mg/dL (0.2-1.0); Calcium 8.9 mg/dL (8.5-10.1); Potassium 4.9 mmol/L (3.5-5.1); Total Protein 6.9 g/dL (6.4-8.2)
[2018-01-01 08:00] VITALS: BP 156/68
[2018-01-01] MEDS: FERROUS SULFATE 325 MG TAB PO SCH ×2 (08:45→17:04)
[2018-01-01] MEDS: cefTRIAXone 1GM/10ml IVPUSH 10 ML IV SCH (08:45)
[2018-01-01] MEDS: PANTOPRAZOLE 40 MG TAB PO SCH (08:46)
[2018-01-01 09:00] VITALS: BP 156/68
[2018-01-01] MEDS: VANCOMYCIN 1,250 MG in D5W 5% 250 ML IV SCH ×2 (09:23→17:03)
[2018-01-01] MEDS ORDERED: IOHEXOL 350 MG/ML 100ML IJ ONE (10:04)
[2018-01-01 13:00] VITALS: BP 137/60
[2018-01-01] MEDS ORDERED: OPTISON 3ml Vial for INJ IV ONE (14:11)
[2018-01-01 16:35] VITALS: BP 106/68
[2018-01-01] MEDS: ATORVASTATIN 20 MG TAB PO SCH (21:48)
[2018-01-01] MEDS: TERAZOSIN HCL 5 MG CAP PO SCH (21:53)
[2018-01-01 22:13] VITALS: BP 123/60
[2018-01-02] MEDS: InsuLIN REG 1unit/0.01ml Soln (100units/ml) SC SCH ×4 (00:01→17:57)
[2018-01-02] MEDS: ACCU-CHEK COMFORT CURVE STRIP VI SCH ×5 (00:01→23:56)
[2018-01-02] MEDS: HYDROcodone-ACET 10/325MG TAB PO PRN ×4 (02:38→23:48)
[2018-01-02] MEDS: TEMAZEPAM 15 MG CAP PO PRN ×2 (04:44→23:48)
[2018-01-02 04:48] VITALS: BP 120/52
[2018-01-02 05:57] LABS: Basophils # (auto) 0 uL; Eosinophils # (auto) 0.2 uL; Eosinophils % (auto) 4.3 % (0.0-7.0); Hemoglobin 10.4 g/dL (13.5-17.5); Lymphocytes # (auto) 0.5 uL; Mean Corpuscular Volume 106.5 fL (80.0-100.0); Neutrophils # (auto) 2.7 uL; Platelet Count (auto) 73 10^3/uL (140-450); White Blood Cell 3.9 10^3/uL (4.4-10.8)
[2018-01-02 06:00] LABS: Basophils % (auto) 0.3 % (0.0-2.0); Hematocrit 29.9 % (41.0-53.0); Mean Corpuscular Hemoglobin 36.9 pg (28.0-32.0); Mean Corpuscular Hgb Conc. 34.6 g/dL (32.0-36.0); Monocytes # (auto) 0.6 uL; Monocytes % (auto) 14.4 % (0.0-12.0); Nucleated Red Blood Cells % 0.2 %; Red Blood Cells 2.81 10^6/uL (4.5-5.90)
[2018-01-02] MEDS: FUROSEMIDE 20 MG/2 ML VIAL IV SCH ×2 (06:10→17:57)
[2018-01-02] MEDS: VANCOMYCIN 1,250 MG in D5W 5% 250 ML IV SCH ×3 (07:03→20:36)
[2018-01-02] MEDS: FERROUS SULFATE 325 MG TAB PO SCH ×2 (08:21→17:59)
[2018-01-02] MEDS: cefTRIAXone 1GM/10ml IVPUSH 10 ML IV SCH (08:22)
[2018-01-02 09:00] VITALS: BP 139/69
[2018-01-02 09:16] LABS: Urine Amorphous Crystal FEW /hpf (None Seen); Urine Bacteria NONE SEEN /hpf (None Seen); Urine Blood 2+ /uL (Negative); Urine Hyaline Cast FEW /lpf (0 - 2); Urine Mucus FEW (None Seen); Urine Specific Gravity 1.024 (1.001-1.035); Urine WBC 46 /hpf (0 - 3)
[2018-01-02] MEDS: PANTOPRAZOLE 40 MG TAB PO SCH (09:52)
[2018-01-02] MEDS: ACETAMINOPHEN 325 MG TAB PO PRN ×2 (11:38→20:25)
[2018-01-02 13:00] VITALS: BP 138/65
[2018-01-02 16:49] VITALS: BP 130/60
[2018-01-02] MEDS: ATORVASTATIN 20 MG TAB PO SCH (21:19)
[2018-01-02] MEDS: TERAZOSIN HCL 5 MG CAP PO SCH (21:20)
[2018-01-02 22:19] VITALS: BP 125/68
[2018-01-03] MEDS: InsuLIN REG 1unit/0.01ml Soln (100units/ml) SC SCH ×4 (00:05→18:13)
[2018-01-03] MEDS: ACETAMINOPHEN 325 MG TAB PO PRN (04:16)
[2018-01-03] MEDS: ACCU-CHEK COMFORT CURVE STRIP VI SCH ×3 (05:19→18:13)
[2018-01-03 05:22] VITALS: BP 135/69
[2018-01-03] MEDS: FUROSEMIDE 20 MG/2 ML VIAL IV SCH (05:34)
[2018-01-03 06:43] LABS: Albumin 3.4 g/dL (3.4-5.0); Calcium 8.9 mg/dL (8.5-10.1); Potassium 4.5 mmol/L (3.5-5.1)
[2018-01-03 06:45] LABS: BUN/Creatinine Ratio 35.4
[2018-01-03 06:47] LABS: Bilirubin, Total 1.1 mg/dL (0.2-1.0); Total Protein 7.1 g/dL (6.4-8.2)
[2018-01-03] MEDS: cefTRIAXone 1GM/10ml IVPUSH 10 ML IV SCH (08:16)
[2018-01-03] MEDS: VANCOMYCIN 1,250 MG in D5W 5% 250 ML IV SCH (08:17)
[2018-01-03] MEDS: FERROUS SULFATE 325 MG TAB PO SCH ×2 (08:17→18:00)
[2018-01-03] MEDS: PANTOPRAZOLE 40 MG TAB PO SCH (08:17)
[2018-01-03 09:00] VITALS: BP 150/85
[2018-01-03] MEDS: IPRATROPIUM BROM 0.5 MG/2.5ML INH SOL NEB PRN ×2 (11:03→22:29)
[2018-01-03] MEDS: BUDESONIDE (INHALATION) 0.5 MG/2 ML NEB NEB SCH ×2 (11:03→22:29)
[2018-01-03] MEDS: ALBUTEROL SULF 2.5 MG/0.5ML(0.5%) NEB SOLN NEB PRN ×2 (11:03→22:29)
[2018-01-03] MEDS ORDERED: ENOXAPARIN SOD 40 MG/0.4 ML SYRINGE SC ONE (12:00)
[2018-01-03 12:58] VITALS: BP 130/47
[2018-01-03] MEDS: ALBUTEROL SULF 2.5 MG/0.5ML(0.5%) NEB SOLN NEB SCH ×7 (13:00→20:14)
[2018-01-03] MEDS: methylPREDNISolone SOD SUCC 125 MG/2 ML VL IV SCH ×2 (13:13→21:47)
[2018-01-03] MEDS: MORPHINE SULF INJ 2 MG/ML SYRINGE 1ML IV PRN ×2 (15:01→21:15)
[2018-01-03] MEDS: FUROSEMIDE INJECTION 100 MG in D5W 5% 90 ML IV SCH (15:02)
[2018-01-03 15:49] VITALS: BP 142/71
[2018-01-03 20:09] VITALS: BP 139/58
[2018-01-03] MEDS: ATORVASTATIN 20 MG TAB PO SCH (21:47)
[2018-01-03] MEDS: TERAZOSIN HCL 5 MG CAP PO SCH (21:47)
[2018-01-04] VITALS: BP 128/56
[2018-01-04] MEDS: HYDROcodone-ACET 10/325MG TAB PO PRN (01:32)
[2018-01-04 04:00] VITALS: BP 125/78
[2018-01-04] MEDS: MORPHINE SULF INJ 2 MG/ML SYRINGE 1ML IV PRN ×2 (05:25→21:39)
[2018-01-04] MEDS: InsuLIN REG 1unit/0.01ml Soln (100units/ml) SC SCH ×5 (06:11→23:10)
[2018-01-04] MEDS: ACCU-CHEK COMFORT CURVE STRIP VI SCH ×5 (06:11→23:09)
[2018-01-04] MEDS: methylPREDNISolone SOD SUCC 125 MG/2 ML VL IV SCH ×3 (06:11→21:48)
[2018-01-04 08:00] VITALS: BP 134/59
[2018-01-04 08:03] LABS: Basophils # (auto) 0 uL; Basophils % (auto) 0.1 % (0.0-2.0); Eosinophils # (auto) 0 uL; Lymphocytes # (auto) 0.2 uL; Mean Corpuscular Volume 106.2 fL (80.0-100.0); Monocytes # (auto) 0.1 uL; Neutrophils # (auto) 3.2 uL
[2018-01-04 08:05] LABS: Hematocrit 30.3 % (41.0-53.0); Hemoglobin 10.1 g/dL (13.5-17.5); Lymphocytes % (auto) 6.2 % (10.0-50.0); Mean Corpuscular Hemoglobin 35.5 pg (28.0-32.0); Mean Corpuscular Hgb Conc. 33.5 g/dL (32.0-36.0); Monocytes % (auto) 2.9 % (0.0-12.0); Neutrophils % (auto) 90.8 % (37.0-80.0); Platelet Count (auto) 73 10^3/uL (140-450); Red Blood Cells 2.85 10^6/uL (4.5-5.90); Red Cell Distribution Width 15.4 % (11.8-14.3); White Blood Cell 3.5 10^3/uL (4.4-10.8)
[2018-01-04 08:13] LABS: Albumin 3.3 g/dL (3.4-5.0); BUN/Creatinine Ratio 31.9; Calcium 8.9 mg/dL (8.5-10.1)
[2018-01-04 08:16] LABS: Bilirubin, Total 0.9 mg/dL (0.2-1.0); Total Protein 6.9 g/dL (6.4-8.2)
[2018-01-04] MEDS: BUDESONIDE (INHALATION) 0.5 MG/2 ML NEB NEB SCH ×2 (09:31→22:22)
[2018-01-04] MEDS: ALBUTEROL SULF 2.5 MG/0.5ML(0.5%) NEB SOLN NEB PRN ×2 (09:31→22:22)
[2018-01-04] MEDS: IPRATROPIUM BROM 0.5 MG/2.5ML INH SOL NEB PRN ×2 (09:32→22:22)
[2018-01-04] MEDS: PANTOPRAZOLE 40 MG TAB PO SCH (09:33)
[2018-01-04] MEDS: cefTRIAXone 1GM/10ml IVPUSH 10 ML IV SCH (09:33)
[2018-01-04] MEDS: FERROUS SULFATE 325 MG TAB PO SCH ×2 (09:33→17:32)
[2018-01-04] MEDS: ENOXAPARIN SOD 40 MG/0.4 ML SYRINGE SC SCH (09:33)
[2018-01-04] MEDS: FUROSEMIDE INJECTION 100 MG in D5W 5% 90 ML IV SCH (09:34)
[2018-01-04] MEDS ORDERED: BUMETANIDE (0.25MG/ML) 4 ML VIAL IV ONE (11:45)
[2018-01-04] MEDS ORDERED: FUROSEMIDE INJECTION 100 MG in D5W 5% 90 ML IV SCH (11:45)
[2018-01-04 12:00] VITALS: BP 137/70
[2018-01-04] MEDS ORDERED: FUROSEMIDE INJECTION 500 MG in D5W 5% 450 ML IV SCH (12:00)
[2018-01-04 13:49] LABS: Urine Bacteria NONE SEEN /hpf (None Seen); Urine Blood 3+ /uL (Negative); Urine Specific Gravity 1.019 (1.001-1.035); Urine WBC 11 /hpf (0 - 3)
[2018-01-04 16:00] VITALS: BP 130/61
[2018-01-04 18:11] LABS: BUN/Creatinine Ratio 35.3; Calcium 8.8 mg/dL (8.5-10.1); Potassium 5.1 mmol/L (3.5-5.1)
[2018-01-04 20:00] VITALS: BP 142/63
[2018-01-04] MEDS: TERAZOSIN HCL 5 MG CAP PO SCH (21:47)
[2018-01-04] MEDS: ATORVASTATIN 20 MG TAB PO SCH (21:48)
[2018-01-04] MEDS: FUROSEMIDE INJECTION 500 MG in D5W 5% 450 ML IV SCH (23:09)
[2018-01-05] VITALS: BP 146/72
[2018-01-05 04:00] VITALS: BP 136/63
[2018-01-05] MEDS: methylPREDNISolone SOD SUCC 125 MG/2 ML VL IV SCH ×3 (06:01→22:26)
[2018-01-05] MEDS: ACCU-CHEK COMFORT CURVE STRIP VI SCH ×5 (06:01→22:25)
[2018-01-05] MEDS: InsuLIN REG 1unit/0.01ml Soln (100units/ml) SC SCH ×5 (06:02→22:31)
[2018-01-05] MEDS: MORPHINE SULF INJ 2 MG/ML SYRINGE 1ML IV PRN (06:02)
[2018-01-05 06:17] LABS: Basophils # (auto) 0 uL; Eosinophils # (auto) 0 uL; Hematocrit 32.3 % (41.0-53.0); Hemoglobin 10.8 g/dL (13.5-17.5); Lymphocytes # (auto) 0.3 uL; Lymphocytes % (auto) 4.4 % (10.0-50.0); Mean Corpuscular Hemoglobin 35.2 pg (28.0-32.0); Mean Corpuscular Hgb Conc. 33.3 g/dL (32.0-36.0); Mean Corpuscular Volume 105.8 fL (80.0-100.0); Monocytes # (auto) 0.3 uL; Monocytes % (auto) 4.1 % (0.0-12.0); Neutrophils # (auto) 5.7 uL; Neutrophils % (auto) 91.5 % (37.0-80.0); Platelet Count (auto) 83 10^3/uL (140-450); Red Blood Cells 3.05 10^6/uL (4.5-5.90); Red Cell Distribution Width 15.2 % (11.8-14.3); White Blood Cell 6.2 10^3/uL (4.4-10.8)
[2018-01-05 06:25] LABS: Calcium 9.1 mg/dL (8.5-10.1); Potassium 4.7 mmol/L (3.5-5.1)
[2018-01-05 06:28] LABS: Albumin 3.3 g/dL (3.4-5.0); BUN/Creatinine Ratio 43.6
[2018-01-05 06:35] LABS: INR 1.12 (0.9-1.15); Partial Thromboplastin Time 26.2 sec (23.78-33.04); Prothrombin Time 11.9 sec (9.27-12.13)
[2018-01-05 06:39] LABS: Bilirubin, Total 0.8 mg/dL (0.2-1.0); Total Protein 7.1 g/dL (6.4-8.2)
[2018-01-05 08:00] VITALS: BP 148/62
[2018-01-05] MEDS: FUROSEMIDE INJECTION 500 MG in D5W 5% 450 ML IV SCH ×2 (08:00→19:48)
[2018-01-05] MEDS ORDERED: DEXTROSE (50%) 50ML SYRG IV PRN (08:30)
[2018-01-05] MEDS: cefTRIAXone 1GM/10ml IVPUSH 10 ML IV SCH (08:43)
[2018-01-05] MEDS: FERROUS SULFATE 325 MG TAB PO SCH ×2 (08:43→17:54)
[2018-01-05] MEDS: PANTOPRAZOLE 40 MG TAB PO SCH (09:16)
[2018-01-05] MEDS: HYDROcodone-ACET 10/325MG TAB PO PRN ×2 (09:16→20:18)
[2018-01-05] MEDS: BUDESONIDE (INHALATION) 0.5 MG/2 ML NEB NEB SCH ×2 (09:49→22:27)
[2018-01-05] MEDS: ALBUTEROL SULF 2.5 MG/0.5ML(0.5%) NEB SOLN NEB PRN ×2 (09:49→22:27)
[2018-01-05] MEDS: IPRATROPIUM BROM 0.5 MG/2.5ML INH SOL NEB PRN ×2 (09:49→22:27)
[2018-01-05] MEDS: ENOXAPARIN SOD 40 MG/0.4 ML SYRINGE SC SCH (10:27)
[2018-01-05 11:49] VITALS: BP 118/57
[2018-01-05] MEDS: ACETAMINOPHEN 325 MG TAB PO PRN ×2 (14:04→15:50)
[2018-01-05 15:50] VITALS: BP 110/75
[2018-01-05 16:13] LABS: BUN/Creatinine Ratio 39.7; Calcium 8.8 mg/dL (8.5-10.1); Potassium 4.6 mmol/L (3.5-5.1)
[2018-01-05 19:50] VITALS: BP 126/77
[2018-01-05] MEDS: ATORVASTATIN 20 MG TAB PO SCH (22:25)
[2018-01-05] MEDS: TERAZOSIN HCL 5 MG CAP PO SCH (22:26)
[2018-01-06] VITALS (10 sets, daily range): BP systolic 105–138; BP diastolic 50–86
[2018-01-06] MEDS: ACCU-CHEK COMFORT CURVE STRIP VI SCH ×6 (02:18→21:52)
[2018-01-06] MEDS: InsuLIN REG 1unit/0.01ml Soln (100units/ml) SC SCH ×6 (02:18→21:53)
[2018-01-06 05:19] LABS: Urine Bacteria FEW /hpf (None Seen); Urine Blood 3+ /uL (Negative); Urine Budding Yeast OCCASIONAL /hpf (None Seen); Urine Hyaline Cast MANY /lpf (0 - 2); Urine Mucus FEW (None Seen); Urine Specific Gravity 1.011 (1.001-1.035); Urine WBC 16 /hpf (0 - 3)
[2018-01-06 05:31] LABS: Basophils # (auto) 0 uL; Eosinophils # (auto) 0 uL; Lymphocytes # (auto) 0.2 uL; Monocytes # (auto) 0.2 uL; White Blood Cell 3.4 10^3/uL (4.4-10.8)
[2018-01-06 05:32] LABS: Creatinine, Urine 59.5 mg/dL (30.0-125.0); Protein, Urine 20.6 mg/dL (0.0-11.9)
[2018-01-06 05:35] LABS: Hematocrit 29.3 % (41.0-53.0); Hemoglobin 10.2 g/dL (13.5-17.5); Lymphocytes % (auto) 4.8 % (10.0-50.0); Mean Corpuscular Hgb Conc. 34.9 g/dL (32.0-36.0); Monocytes % (auto) 5.9 % (0.0-12.0); Neutrophils % (auto) 89.3 % (37.0-80.0); Platelet Count (auto) 75 10^3/uL (140-450); Red Blood Cells 2.76 10^6/uL (4.5-5.90)
[2018-01-06 05:54] LABS: Albumin 3.1 g/dL (3.4-5.0); Calcium 8.4 mg/dL (8.5-10.1); Potassium 4.1 mmol/L (3.5-5.1)
[2018-01-06 05:57] LABS: Bilirubin, Total 0.8 mg/dL (0.2-1.0); Total Protein 6.4 g/dL (6.4-8.2)
[2018-01-06] MEDS: methylPREDNISolone SOD SUCC 125 MG/2 ML VL IV SCH ×3 (06:03→21:51)
[2018-01-06] MEDS ORDERED: SODIUM CHL 0.9% 1000 ML BAG XX ONE (07:45)
[2018-01-06] MEDS: FERROUS SULFATE 325 MG TAB PO SCH ×2 (08:24→18:31)
[2018-01-06] MEDS: cefTRIAXone 1GM/10ml IVPUSH 10 ML IV SCH (08:24)
[2018-01-06] MEDS: IPRATROPIUM BROM 0.5 MG/2.5ML INH SOL NEB PRN ×2 (10:12→22:17)
[2018-01-06] MEDS: ALBUTEROL SULF 2.5 MG/0.5ML(0.5%) NEB SOLN NEB PRN ×2 (10:12→22:17)
[2018-01-06] MEDS: BUDESONIDE (INHALATION) 0.5 MG/2 ML NEB NEB SCH ×2 (10:13→22:17)
[2018-01-06] MEDS: ENOXAPARIN SOD 40 MG/0.4 ML SYRINGE SC SCH (10:24)
[2018-01-06] MEDS: FUROSEMIDE INJECTION 500 MG in D5W 5% 450 ML IV SCH ×2 (10:24→22:57)
[2018-01-06] MEDS: PANTOPRAZOLE 40 MG TAB PO SCH (10:25)
[2018-01-06] MEDS: HYDROcodone-ACET 10/325MG TAB PO PRN ×2 (15:42→21:52)
[2018-01-06] MEDS: ATORVASTATIN 20 MG TAB PO SCH (21:51)
[2018-01-06] MEDS: TERAZOSIN HCL 5 MG CAP PO SCH (21:52)
[2018-01-07] VITALS (9 sets, daily range): BP systolic 110–148; BP diastolic 57–74
[2018-01-07] MEDS: MORPHINE SULF INJ 2 MG/ML SYRINGE 1ML IV PRN (01:49)
[2018-01-07] MEDS: ACCU-CHEK COMFORT CURVE STRIP VI SCH ×6 (02:02→22:11)
[2018-01-07] MEDS: InsuLIN REG 1unit/0.01ml Soln (100units/ml) SC SCH ×6 (02:02→22:11)
[2018-01-07] MEDS: methylPREDNISolone SOD SUCC 125 MG/2 ML VL IV SCH ×3 (06:11→21:46)
[2018-01-07 06:33] LABS: BUN/Creatinine Ratio 42.6; Calcium 8.1 mg/dL (8.5-10.1); Potassium 3.9 mmol/L (3.5-5.1)
[2018-01-07] MEDS ORDERED: SODIUM CHL 0.9% 1000 ML BAG XX ONE (08:15)
[2018-01-07] MEDS: FERROUS SULFATE 325 MG TAB PO SCH ×2 (08:30→18:06)
[2018-01-07] MEDS: cefTRIAXone 1GM/10ml IVPUSH 10 ML IV SCH (08:30)
[2018-01-07] MEDS: ENOXAPARIN SOD 40 MG/0.4 ML SYRINGE SC SCH (09:35)
[2018-01-07] MEDS: PANTOPRAZOLE 40 MG TAB PO SCH (09:35)
[2018-01-07] MEDS: FUROSEMIDE INJECTION 500 MG in D5W 5% 450 ML IV SCH (10:22)
[2018-01-07] MEDS: IPRATROPIUM BROM 0.5 MG/2.5ML INH SOL NEB PRN ×2 (10:43→22:23)
[2018-01-07] MEDS: BUDESONIDE (INHALATION) 0.5 MG/2 ML NEB NEB SCH ×2 (10:43→22:23)
[2018-01-07] MEDS: ALBUTEROL SULF 2.5 MG/0.5ML(0.5%) NEB SOLN NEB PRN ×2 (10:43→22:23)
[2018-01-07] MEDS: HYDROcodone-ACET 10/325MG TAB PO PRN (21:46)
[2018-01-07] MEDS: ATORVASTATIN 20 MG TAB PO SCH (21:46)
[2018-01-07] MEDS: TERAZOSIN HCL 5 MG CAP PO SCH (21:46)
[2018-01-07] MEDS ORDERED: CALCIUM CARB 500 MG CHEW TAB PO ONE (22:15)
[2018-01-08] VITALS (9 sets, daily range): BP systolic 121–134; BP diastolic 50–66
[2018-01-08] MEDS: FUROSEMIDE INJECTION 500 MG in D5W 5% 450 ML IV SCH (00:36)
[2018-01-08] MEDS: ACCU-CHEK COMFORT CURVE STRIP VI SCH ×6 (01:47→22:33)
[2018-01-08] MEDS: InsuLIN REG 1unit/0.01ml Soln (100units/ml) SC SCH ×6 (01:48→22:33)
[2018-01-08] MEDS: ALBUTEROL SULF 2.5 MG/0.5ML(0.5%) NEB SOLN NEB PRN ×3 (04:03→18:30)
[2018-01-08] MEDS: IPRATROPIUM BROM 0.5 MG/2.5ML INH SOL NEB PRN ×3 (04:03→18:30)
[2018-01-08] MEDS: methylPREDNISolone SOD SUCC 125 MG/2 ML VL IV SCH ×3 (06:03→22:34)
[2018-01-08 06:13] LABS: Basophils # (auto) 0 uL; Eosinophils # (auto) 0 uL; Hemoglobin 10.5 g/dL (13.5-17.5); Lymphocytes # (auto) 0.2 uL; Mean Corpuscular Hemoglobin 36.1 pg (28.0-32.0); Monocytes # (auto) 0.2 uL
[2018-01-08 06:16] LABS: Basophils % (auto) 0.1 % (0.0-2.0); Hematocrit 30.5 % (41.0-53.0); Lymphocytes % (auto) 7.8 % (10.0-50.0); Mean Corpuscular Hgb Conc. 34.4 g/dL (32.0-36.0); Mean Corpuscular Volume 104.9 fL (80.0-100.0); Monocytes % (auto) 8.1 % (0.0-12.0); Neutrophils # (auto) 1.7 uL; Platelet Count (auto) 77 10^3/uL (140-450); Red Blood Cells 2.91 10^6/uL (4.5-5.90); White Blood Cell 2.1 10^3/uL (4.4-10.8)
[2018-01-08 06:30] LABS: BUN/Creatinine Ratio 43.1; Calcium 8.3 mg/dL (8.5-10.1); Potassium 3.4 mmol/L (3.5-5.1)
[2018-01-08 06:37] LABS: Bilirubin, Total 0.7 mg/dL (0.2-1.0); Total Protein 6.1 g/dL (6.4-8.2)
[2018-01-08] MEDS: cefTRIAXone 1GM/10ml IVPUSH 10 ML IV SCH (09:37)
[2018-01-08] MEDS: ENOXAPARIN SOD 40 MG/0.4 ML SYRINGE SC SCH (09:38)
[2018-01-08] MEDS: FERROUS SULFATE 325 MG TAB PO SCH ×2 (09:38→17:39)
[2018-01-08] MEDS: PANTOPRAZOLE 40 MG TAB PO SCH (09:38)
[2018-01-08] MEDS: METOLAZONE 5 MG TAB PO SCH (09:39)
[2018-01-08] MEDS: BUDESONIDE (INHALATION) 0.5 MG/2 ML NEB NEB SCH ×2 (10:27→18:30)
[2018-01-08] MEDS: FUROSEMIDE 40 MG/4 ML VIAL IV SCH ×2 (13:36→22:49)
[2018-01-08] MEDS: MAGNESIUM OXIDE 400 MG TAB PO SCH (22:33)
[2018-01-08] MEDS: ATORVASTATIN 20 MG TAB PO SCH (22:33)
[2018-01-08] MEDS: HYDROcodone-ACET 10/325MG TAB PO PRN (22:34)
[2018-01-08] MEDS: TERAZOSIN HCL 5 MG CAP PO SCH (22:49)
[2018-01-09] MEDS: ACCU-CHEK COMFORT CURVE STRIP VI SCH ×6 (02:18→22:03)
[2018-01-09] MEDS: InsuLIN REG 1unit/0.01ml Soln (100units/ml) SC SCH ×6 (02:19→22:04)
[2018-01-09 05:47] VITALS: BP 114/47
[2018-01-09] MEDS: BUDESONIDE (INHALATION) 0.5 MG/2 ML NEB NEB SCH ×2 (06:03→18:51)
[2018-01-09] MEDS: methylPREDNISolone SOD SUCC 125 MG/2 ML VL IV SCH ×3 (06:19→22:01)
[2018-01-09] MEDS: FUROSEMIDE 40 MG/4 ML VIAL IV SCH ×2 (06:20→14:57)
[2018-01-09 06:35] LABS: Basophils # (auto) 0 uL; Eosinophils # (auto) 0 uL; Lymphocytes # (auto) 0.2 uL; Monocytes # (auto) 0.2 uL; Platelet Count (auto) 84 10^3/uL (140-450); White Blood Cell 2.4 10^3/uL (4.4-10.8)
[2018-01-09 06:37] LABS: Hematocrit 33.7 % (41.0-53.0); Hemoglobin 11.5 g/dL (13.5-17.5); Lymphocytes % (auto) 7.8 % (10.0-50.0); Mean Corpuscular Hemoglobin 35.7 pg (28.0-32.0); Mean Corpuscular Hgb Conc. 34.2 g/dL (32.0-36.0); Mean Corpuscular Volume 104.5 fL (80.0-100.0); Monocytes % (auto) 8.3 % (0.0-12.0); Neutrophils % (auto) 83.9 % (37.0-80.0); Nucleated Red Blood Cells % 0.1 %; Red Blood Cells 3.23 10^6/uL (4.5-5.90); Red Cell Distribution Width 14.6 % (11.8-14.3)
[2018-01-09 06:50] LABS: Albumin 3.1 g/dL (3.4-5.0); Calcium 8.6 mg/dL (8.5-10.1)
[2018-01-09 06:54] LABS: BUN/Creatinine Ratio 48.2
[2018-01-09 06:56] LABS: Bilirubin, Total 0.8 mg/dL (0.2-1.0); Total Protein 6.4 g/dL (6.4-8.2)
[2018-01-09 06:58] LABS: Potassium 2.9 mmol/L (3.5-5.1)
[2018-01-09] MEDS: FERROUS SULFATE 325 MG TAB PO SCH ×2 (08:00→17:37)
[2018-01-09] MEDS ORDERED: POTASSIUM CHL 20 Meq TABLET PO ONE (08:15)
[2018-01-09 08:35] VITALS: BP 147/66
[2018-01-09] MEDS: IPRATROPIUM BROM 0.5 MG/2.5ML INH SOL NEB PRN (08:42)
[2018-01-09] MEDS: ALBUTEROL SULF 2.5 MG/0.5ML(0.5%) NEB SOLN NEB PRN (08:42)
[2018-01-09 08:52] VITALS: BP 147/66
[2018-01-09] MEDS: cefTRIAXone 1GM/10ml IVPUSH 10 ML IV SCH (09:23)
[2018-01-09] MEDS: ENOXAPARIN SOD 40 MG/0.4 ML SYRINGE SC SCH (09:23)
[2018-01-09] MEDS: POTASSIUM CHL 20MEQ/100ML 100 ML IV SCH ×2 (09:30→13:11)
[2018-01-09] MEDS: METOLAZONE 5 MG TAB PO SCH (11:19)
[2018-01-09] MEDS: PANTOPRAZOLE 40 MG TAB PO SCH (11:20)
[2018-01-09 12:23] VITALS: BP 142/64
[2018-01-09 16:54] VITALS: BP 146/72
[2018-01-09] MEDS ORDERED: ALPRAZolam 0.5 MG TAB PO ONE (17:15)
[2018-01-09 22:00] VITALS: BP 120/91
[2018-01-09] MEDS: TERAZOSIN HCL 5 MG CAP PO SCH (22:01)
[2018-01-09] MEDS: ATORVASTATIN 20 MG TAB PO SCH (22:02)
[2018-01-09] MEDS: MAGNESIUM OXIDE 400 MG TAB PO SCH (22:02)
[2018-01-09] MEDS: ALPRAZolam 0.5 MG TAB PO SCH (22:03)
[2018-01-10] MEDS: ACCU-CHEK COMFORT CURVE STRIP VI SCH ×6 (02:35→22:10)
[2018-01-10] MEDS: InsuLIN REG 1unit/0.01ml Soln (100units/ml) SC SCH ×6 (02:35→22:17)
[2018-01-10] MEDS: HYDROcodone-ACET 10/325MG TAB PO PRN (02:42)
[2018-01-10] MEDS: methylPREDNISolone SOD SUCC 125 MG/2 ML VL IV SCH (05:46)
[2018-01-10 05:54] VITALS: BP 125/64
[2018-01-10] MEDS ORDERED: FUROSEMIDE 40 MG/4 ML VIAL IV SCH (06:00)
[2018-01-10] MEDS: ALPRAZolam 0.5 MG TAB PO SCH ×3 (06:01→22:10)
[2018-01-10 07:17] LABS: Basophils # (auto) 0 uL; Eosinophils # (auto) 0 uL; Lymphocytes # (auto) 0.2 uL; Monocytes # (auto) 0.2 uL; Neutrophils # (auto) 2.9 uL; Platelet Count (auto) 89 10^3/uL (140-450); White Blood Cell 3.3 10^3/uL (4.4-10.8)
[2018-01-10 07:25] LABS: Hematocrit 34.9 % (41.0-53.0); Hemoglobin 11.8 g/dL (13.5-17.5); Lymphocytes % (auto) 5.7 % (10.0-50.0); Mean Corpuscular Hemoglobin 35.1 pg (28.0-32.0); Mean Corpuscular Hgb Conc. 33.8 g/dL (32.0-36.0); Monocytes % (auto) 6.3 % (0.0-12.0); Nucleated Red Blood Cells % 0.2 %; Red Blood Cells 3.36 10^6/uL (4.5-5.90); Red Cell Distribution Width 14.8 % (11.8-14.3)
[2018-01-10 07:30] LABS: Calcium 8.8 mg/dL (8.5-10.1); Potassium 3.1 mmol/L (3.5-5.1)
[2018-01-10 07:35] LABS: Total Protein 6.2 g/dL (6.4-8.2)
[2018-01-10 07:36] LABS: Bilirubin, Total 0.8 mg/dL (0.2-1.0)
[2018-01-10] MEDS: BUDESONIDE (INHALATION) 0.5 MG/2 ML NEB NEB SCH ×2 (07:50→17:58)
[2018-01-10 09:00] VITALS: BP_SYST 109; BP_SYST 144; BP_DIAS 71; BP_DIAS 85
[2018-01-10] MEDS: PANTOPRAZOLE 40 MG TAB PO SCH (09:52)
[2018-01-10] MEDS: ENOXAPARIN SOD 40 MG/0.4 ML SYRINGE SC SCH (09:52)
[2018-01-10] MEDS: FERROUS SULFATE 325 MG TAB PO SCH ×2 (09:52→18:12)
[2018-01-10] MEDS: cefTRIAXone 1GM/10ml IVPUSH 10 ML IV SCH (09:52)
[2018-01-10 13:00] VITALS: BP 144/60
[2018-01-10] MEDS: predniSONE 20 MG TAB PO SCH ×2 (14:20→22:09)
[2018-01-10 17:00] VITALS: BP 139/61
[2018-01-10] MEDS: FUROSEMIDE 40 MG TAB PO SCH (18:12)
[2018-01-10] MEDS: IPRATROPIUM BROM 0.5 MG/2.5ML INH SOL NEB PRN (21:01)
[2018-01-10] MEDS: ALBUTEROL SULF 2.5 MG/0.5ML(0.5%) NEB SOLN NEB PRN (21:01)
[2018-01-10 22:00] VITALS: BP 137/57
[2018-01-10] MEDS: ATORVASTATIN 20 MG TAB PO SCH (22:10)
[2018-01-10] MEDS: TERAZOSIN HCL 5 MG CAP PO SCH (22:10)
[2018-01-10] MEDS: MAGNESIUM OXIDE 400 MG TAB PO SCH (22:10)
[2018-01-11] MEDS: ACCU-CHEK COMFORT CURVE STRIP VI SCH ×6 (01:49→22:17)
[2018-01-11] MEDS: InsuLIN REG 1unit/0.01ml Soln (100units/ml) SC SCH ×6 (01:56→22:28)
[2018-01-11 04:52] VITALS: BP 126/70
[2018-01-11] MEDS: predniSONE 20 MG TAB PO SCH ×3 (05:30→22:17)
[2018-01-11] MEDS: FUROSEMIDE 40 MG TAB PO SCH (05:30)
[2018-01-11] MEDS: ALPRAZolam 0.5 MG TAB PO SCH ×3 (05:31→22:18)
[2018-01-11] MEDS: FERROUS SULFATE 325 MG TAB PO SCH ×2 (08:07→17:59)
[2018-01-11 09:46] VITALS: BP 126/56
[2018-01-11] MEDS: BUDESONIDE (INHALATION) 0.5 MG/2 ML NEB NEB SCH ×2 (10:09→18:28)
[2018-01-11] MEDS ORDERED: POTASSIUM CHL 20 Meq TABLET PO ONE (10:45)
[2018-01-11] MEDS: cefTRIAXone 1GM/10ml IVPUSH 10 ML IV SCH (10:49)
[2018-01-11] MEDS: PANTOPRAZOLE 40 MG TAB PO SCH (10:49)
[2018-01-11] MEDS: ENOXAPARIN SOD 40 MG/0.4 ML SYRINGE SC SCH (10:50)
[2018-01-11 13:00] VITALS: BP 130/66
[2018-01-11 16:39] VITALS: BP 134/58
[2018-01-11] MEDS: IPRATROPIUM BROM 0.5 MG/2.5ML INH SOL NEB PRN (18:28)
[2018-01-11] MEDS: ALBUTEROL SULF 2.5 MG/0.5ML(0.5%) NEB SOLN NEB PRN (18:28)
[2018-01-11 21:46] VITALS: BP 161/73
[2018-01-11] MEDS: ATORVASTATIN 20 MG TAB PO SCH (22:18)
[2018-01-11] MEDS: MAGNESIUM OXIDE 400 MG TAB PO SCH (22:18)
[2018-01-11] MEDS: TERAZOSIN HCL 5 MG CAP PO SCH (22:18)
[2018-01-12] MEDS: ALBUTEROL SULF 2.5 MG/0.5ML(0.5%) NEB SOLN NEB PRN ×3 (00:25→17:15)
[2018-01-12] MEDS: IPRATROPIUM BROM 0.5 MG/2.5ML INH SOL NEB PRN ×3 (00:25→17:15)
[2018-01-12] MEDS: ACCU-CHEK COMFORT CURVE STRIP VI SCH ×6 (02:25→22:00)
[2018-01-12] MEDS: InsuLIN REG 1unit/0.01ml Soln (100units/ml) SC SCH ×6 (02:32→22:48)
[2018-01-12 04:40] VITALS: BP 149/67
[2018-01-12] MEDS: predniSONE 20 MG TAB PO SCH ×3 (05:42→22:32)
[2018-01-12] MEDS: ALPRAZolam 0.5 MG TAB PO SCH ×3 (05:42→22:33)
[2018-01-12 06:44] LABS: Basophils # (auto) 0 uL; Eosinophils # (auto) 0 uL; Eosinophils % (auto) 0.1 % (0.0-7.0); Lymphocytes # (auto) 0.3 uL; Monocytes # (auto) 0.4 uL; Nucleated Red Blood Cells % 0.1 %; Platelet Count (auto) 91 10^3/uL (140-450); Red Cell Distribution Width 14.9 % (11.8-14.3)
[2018-01-12 06:47] LABS: Hematocrit 34.7 % (41.0-53.0); Lymphocytes % (auto) 7.1 % (10.0-50.0); Mean Corpuscular Hemoglobin 35.9 pg (28.0-32.0); Mean Corpuscular Hgb Conc. 34.5 g/dL (32.0-36.0); Mean Corpuscular Volume 103.9 fL (80.0-100.0); Monocytes % (auto) 9.8 % (0.0-12.0); Red Blood Cells 3.34 10^6/uL (4.5-5.90); White Blood Cell 3.6 10^3/uL (4.4-10.8)
[2018-01-12 06:55] LABS: Phosphorus 3.7 mg/dL (2.5-4.90); Uric Acid 9.7 mg/dL (3.5-7.2)
[2018-01-12 06:56] LABS: Albumin 2.7 g/dL (3.4-5.0); Potassium 3.7 mmol/L (3.5-5.1)
[2018-01-12 07:04] LABS: BUN/Creatinine Ratio 56.9; Total Protein 5.7 g/dL (6.4-8.2)
[2018-01-12 07:56] VITALS: BP 149/67
[2018-01-12 08:35] VITALS: BP 124/61
[2018-01-12] MEDS: ENOXAPARIN SOD 40 MG/0.4 ML SYRINGE SC SCH (10:00)
[2018-01-12] MEDS: cefTRIAXone 1GM/10ml IVPUSH 10 ML IV SCH (10:57)
[2018-01-12] MEDS: PANTOPRAZOLE 40 MG TAB PO SCH (10:58)
[2018-01-12] MEDS: FERROUS SULFATE 325 MG TAB PO SCH ×2 (10:58→18:24)
[2018-01-12] MEDS: FUROSEMIDE 40 MG TAB PO SCH (10:59)
[2018-01-12] MEDS ORDERED: POTASSIUM CHL 20 Meq TABLET PO ONE (11:00)
[2018-01-12] MEDS: BUDESONIDE (INHALATION) 0.5 MG/2 ML NEB NEB SCH ×2 (11:05→17:16)
[2018-01-12 12:22] VITALS: BP 123/52
[2018-01-12 16:42] VITALS: BP 126/50
[2018-01-12 21:40] VITALS: BP 140/58
[2018-01-12] MEDS: ATORVASTATIN 20 MG TAB PO SCH (22:33)
[2018-01-12] MEDS: TERAZOSIN HCL 5 MG CAP PO SCH (22:33)
[2018-01-12] MEDS: MAGNESIUM OXIDE 400 MG TAB PO SCH (22:33)
[2018-01-13] MEDS: InsuLIN REG 1unit/0.01ml Soln (100units/ml) SC SCH ×6 (01:47→22:00)
[2018-01-13] MEDS: ACCU-CHEK COMFORT CURVE STRIP VI SCH ×6 (02:00→22:00)
[2018-01-13 04:42] VITALS: BP 134/66
[2018-01-13] MEDS: ALPRAZolam 0.5 MG TAB PO SCH ×3 (06:00→22:47)
[2018-01-13 06:27] LABS: Basophils # (auto) 0 uL; Eosinophils # (auto) 0 uL; Lymphocytes # (auto) 0.3 uL; Monocytes # (auto) 0.4 uL; Neutrophils # (auto) 3.2 uL; Red Cell Distribution Width 14.9 % (11.8-14.3)
[2018-01-13] MEDS: predniSONE 20 MG TAB PO SCH ×3 (06:32→22:46)
[2018-01-13 06:34] LABS: Eosinophils % (auto) 0.1 % (0.0-7.0); Hematocrit 34.7 % (41.0-53.0); Hemoglobin 11.9 g/dL (13.5-17.5); Lymphocytes % (auto) 8.5 % (10.0-50.0); Mean Corpuscular Hemoglobin 35.6 pg (28.0-32.0); Mean Corpuscular Hgb Conc. 34.5 g/dL (32.0-36.0); Mean Corpuscular Volume 103.3 fL (80.0-100.0); Monocytes % (auto) 10.7 % (0.0-12.0); Neutrophils % (auto) 80.7 % (37.0-80.0); Nucleated Red Blood Cells % 0.1 %; Platelet Count (auto) 85 10^3/uL (140-450); Red Blood Cells 3.36 10^6/uL (4.5-5.90)
[2018-01-13 06:43] LABS: Albumin 2.7 g/dL (3.4-5.0); Calcium 8.9 mg/dL (8.5-10.1)
[2018-01-13 06:48] LABS: Bilirubin, Total 0.9 mg/dL (0.2-1.0); Total Protein 5.7 g/dL (6.4-8.2)
[2018-01-13 08:55] VITALS: BP 138/68
[2018-01-13] MEDS: cefTRIAXone 1GM/10ml IVPUSH 10 ML IV SCH (09:30)
[2018-01-13] MEDS: ENOXAPARIN SOD 40 MG/0.4 ML SYRINGE SC SCH (09:31)
[2018-01-13] MEDS: FUROSEMIDE 40 MG TAB PO SCH (09:31)
[2018-01-13] MEDS: FERROUS SULFATE 325 MG TAB PO SCH ×2 (09:31→17:57)
[2018-01-13] MEDS: PANTOPRAZOLE 40 MG TAB PO SCH (09:31)
[2018-01-13] MEDS: ALBUTEROL SULF 2.5 MG/0.5ML(0.5%) NEB SOLN NEB PRN ×2 (10:03→22:34)
[2018-01-13] MEDS: BUDESONIDE (INHALATION) 0.5 MG/2 ML NEB NEB SCH ×2 (10:03→22:34)
[2018-01-13] MEDS: IPRATROPIUM BROM 0.5 MG/2.5ML INH SOL NEB PRN ×2 (10:03→22:34)
[2018-01-13] MEDS ORDERED: acetaZOLAMIDE SODIUM 500 MG VL IV ONE (11:45)
[2018-01-13] MEDS: POTASSIUM CHL 20 Meq TABLET PO SCH (12:49)
[2018-01-13 13:00] VITALS: BP 130/59
[2018-01-13 16:38] VITALS: BP 122/59
[2018-01-13] MEDS: FUROSEMIDE 40 MG/4 ML VIAL IV SCH (17:56)
[2018-01-13 22:00] VITALS: BP 136/66
[2018-01-13] MEDS: HYDROcodone-ACET 10/325MG TAB PO PRN (22:46)
[2018-01-13] MEDS: MAGNESIUM OXIDE 400 MG TAB PO SCH (22:47)
[2018-01-13] MEDS: TERAZOSIN HCL 5 MG CAP PO SCH (22:48)
[2018-01-13] MEDS: ATORVASTATIN 20 MG TAB PO SCH (22:48)
[2018-01-14] MEDS: InsuLIN REG 1unit/0.01ml Soln (100units/ml) SC SCH ×6 (02:16→23:06)
[2018-01-14] MEDS: ACCU-CHEK COMFORT CURVE STRIP VI SCH ×6 (02:17→23:06)
[2018-01-14 05:00] VITALS: BP 134/64
[2018-01-14] MEDS: BUDESONIDE (INHALATION) 0.5 MG/2 ML NEB NEB SCH ×2 (06:27→18:29)
[2018-01-14] MEDS: ALBUTEROL SULF 2.5 MG/0.5ML(0.5%) NEB SOLN NEB PRN ×2 (06:27→14:12)
[2018-01-14] MEDS: IPRATROPIUM BROM 0.5 MG/2.5ML INH SOL NEB PRN ×2 (06:27→14:12)
[2018-01-14] MEDS: FUROSEMIDE 40 MG/4 ML VIAL IV SCH ×2 (07:09→18:14)
[2018-01-14] MEDS: predniSONE 20 MG TAB PO SCH ×3 (07:10→22:57)
[2018-01-14] MEDS: ALPRAZolam 0.5 MG TAB PO SCH ×3 (07:10→22:57)
[2018-01-14 07:29] LABS: Albumin 2.7 g/dL (3.4-5.0); BUN/Creatinine Ratio 45.7; Calcium 8.8 mg/dL (8.5-10.1); Phosphorus 3.4 mg/dL (2.5-4.90); Total Protein 5.8 g/dL (6.4-8.2); Uric Acid 6.9 mg/dL (3.5-7.2)
[2018-01-14] MEDS: POTASSIUM CHL 20 Meq TABLET PO SCH (08:59)
[2018-01-14] MEDS: PANTOPRAZOLE 40 MG TAB PO SCH (08:59)
[2018-01-14] MEDS: FERROUS SULFATE 325 MG TAB PO SCH ×2 (08:59→18:14)
[2018-01-14 09:00] VITALS: BP 141/65
[2018-01-14] MEDS: cefTRIAXone 1GM/10ml IVPUSH 10 ML IV SCH (09:00)
[2018-01-14] MEDS: ENOXAPARIN SOD 40 MG/0.4 ML SYRINGE SC SCH (09:00)
[2018-01-14 13:04] VITALS: BP 133/46
[2018-01-14 16:53] VITALS: BP 121/53
[2018-01-14 18:47] VITALS: BP 121/53
[2018-01-14 22:00] VITALS: BP 130/64
[2018-01-14] MEDS: TERAZOSIN HCL 5 MG CAP PO SCH (22:56)
[2018-01-14] MEDS: ATORVASTATIN 20 MG TAB PO SCH (22:56)
[2018-01-14] MEDS: MAGNESIUM OXIDE 400 MG TAB PO SCH (22:57)
[2018-01-15] MEDS: InsuLIN REG 1unit/0.01ml Soln (100units/ml) SC SCH ×4 (02:29→14:00)
[2018-01-15] MEDS: ACCU-CHEK COMFORT CURVE STRIP VI SCH ×4 (02:29→14:00)
[2018-01-15 05:04] VITALS: BP 135/58
[2018-01-15] MEDS: FUROSEMIDE 40 MG/4 ML VIAL IV SCH (05:19)
[2018-01-15] MEDS: ALPRAZolam 0.5 MG TAB PO SCH ×2 (05:44→14:00)
[2018-01-15] MEDS: predniSONE 20 MG TAB PO SCH ×2 (05:44→14:00)
[2018-01-15 07:30] VITALS: BP 142/68
[2018-01-15 07:38] VITALS: BP 142/68
[2018-01-15] MEDS: cefTRIAXone 1GM/10ml IVPUSH 10 ML IV SCH (09:31)
[2018-01-15] MEDS: ENOXAPARIN SOD 40 MG/0.4 ML SYRINGE SC SCH (09:32)
[2018-01-15] MEDS: FERROUS SULFATE 325 MG TAB PO SCH (09:32)
[2018-01-15] MEDS: POTASSIUM CHL 20 Meq TABLET PO SCH (09:32)
[2018-01-15] MEDS: PANTOPRAZOLE 40 MG TAB PO SCH (09:32)
[2018-01-15] MEDS: BUDESONIDE (INHALATION) 0.5 MG/2 ML NEB NEB SCH (10:17)
[2018-01-15] MEDS: ALBUTEROL SULF 2.5 MG/0.5ML(0.5%) NEB SOLN NEB PRN (10:18)
[2018-01-15] MEDS: IPRATROPIUM BROM 0.5 MG/2.5ML INH SOL NEB PRN (10:18)
[2018-01-15 11:54] VITALS: BP 141/55
[2018-01-15 16:17] VITALS: BP 140/61
[2018-01-30] MEDS ORDERED: CYCL7.5T15 PO (08:51)
== END 2018-01-15 16:30 | disposition home or self-care (01) | DRG 291 ==
LOC: EDBD 23:58 → ER 12-31 00:04 → TELE 12-31 00:05 → TELE-WESTW 12-31 16:51 → DOU IN ICU 01-03 12:45 → TELE-EAST 01-07 19:04
PROVIDERS: ADMIT Nurse Practitioner; ATTEND Family Medicine
PROC: 5A09357 Assistance with Respiratory Ventilation, Less than 24 Consecutive Hours, Continuous Positive Airway Pressure (ICD-10-PCS; principal; 2018-01-03)
PROC: 5A09357 Assistance with Respiratory Ventilation, Less than 24 Consecutive Hours, Continuous Positive Airway Pressure (ICD-10-PCS; 2018-01-04)
PROC: 5A09357 Assistance with Respiratory Ventilation, Less than 24 Consecutive Hours, Continuous Positive Airway Pressure (ICD-10-PCS; 2018-01-05)
PROC: 02HV33Z Insertion of Infusion Device into Superior Vena Cava, Percutaneous Approach (ICD-10-PCS; 2018-01-05)
PROC: B548ZZA Ultrasonography of Superior Vena Cava, Guidance (ICD-10-PCS; 2018-01-05)
PROC: 5A09357 Assistance with Respiratory Ventilation, Less than 24 Consecutive Hours, Continuous Positive Airway Pressure (ICD-10-PCS; 2018-01-06)
PROC: 5A1D70Z Performance of Urinary Filtration, Intermittent, Less than 6 Hours Per Day (ICD-10-PCS; 2018-01-06)
PROC: 5A09357 Assistance with Respiratory Ventilation, Less than 24 Consecutive Hours, Continuous Positive Airway Pressure (ICD-10-PCS; 2018-01-07)
PROC: 5A1D70Z Performance of Urinary Filtration, Intermittent, Less than 6 Hours Per Day (ICD-10-PCS; 2018-01-07)
PROC: 5A09357 Assistance with Respiratory Ventilation, Less than 24 Consecutive Hours, Continuous Positive Airway Pressure (ICD-10-PCS; 2018-01-08)
PROC: 5A09357 Assistance with Respiratory Ventilation, Less than 24 Consecutive Hours, Continuous Positive Airway Pressure (ICD-10-PCS; 2018-01-09)
PROC: 5A09357 Assistance with Respiratory Ventilation, Less than 24 Consecutive Hours, Continuous Positive Airway Pressure (ICD-10-PCS; 2018-01-10)
PROC: 5A09357 Assistance with Respiratory Ventilation, Less than 24 Consecutive Hours, Continuous Positive Airway Pressure (ICD-10-PCS; 2018-01-11)
PROC: 5A09357 Assistance with Respiratory Ventilation, Less than 24 Consecutive Hours, Continuous Positive Airway Pressure (ICD-10-PCS; 2018-01-11)
PROC: 5A09357 Assistance with Respiratory Ventilation, Less than 24 Consecutive Hours, Continuous Positive Airway Pressure (ICD-10-PCS; 2018-01-12)
PROC: 5A09357 Assistance with Respiratory Ventilation, Less than 24 Consecutive Hours, Continuous Positive Airway Pressure (ICD-10-PCS; 2018-01-13)
PROC: 5A09357 Assistance with Respiratory Ventilation, Less than 24 Consecutive Hours, Continuous Positive Airway Pressure (ICD-10-PCS; 2018-01-14)
PROC: 5A09357 Assistance with Respiratory Ventilation, Less than 24 Consecutive Hours, Continuous Positive Airway Pressure (ICD-10-PCS; 2018-01-15)
DX: I13.0 Hypertensive heart and chronic kidney disease with heart failure and stage 1 through stage 4 chronic kidney disease, or unspecified chronic kidney disease (principal); K76.7 Hepatorenal syndrome; J96.21 Acute and chronic respiratory failure with hypoxia; J96.22 Acute and chronic respiratory failure with hypercapnia; N17.0 Acute kidney failure with tubular necrosis; I50.43 Acute on chronic combined systolic (congestive) and diastolic (congestive) heart failure; G93.41 Metabolic encephalopathy; E43 Unspecified severe protein-calorie malnutrition; L03.116 Cellulitis of left lower limb; L03.115 Cellulitis of right lower limb; I48.92 Unspecified atrial flutter; E66.2 Morbid (severe) obesity with alveolar hypoventilation; Z68.1 Body mass index [BMI] 19.9 or less, adult; E87.4 Mixed disorder of acid-base balance; R18.8 Other ascites; K74.60 Unspecified cirrhosis of liver; K40.20 Bilateral inguinal hernia, without obstruction or gangrene, not specified as recurrent; M43.17 Spondylolisthesis, lumbosacral region; N18.9 Chronic kidney disease, unspecified; E78.00 Pure hypercholesterolemia, unspecified; N40.1 Benign prostatic hyperplasia with lower urinary tract symptoms; R33.8 Other retention of urine; D53.9 Nutritional anemia, unspecified; D69.59 Other secondary thrombocytopenia; E11.22 Type 2 diabetes mellitus with diabetic chronic kidney disease; E87.6 Hypokalemia; G89.29 Other chronic pain; I08.0 Rheumatic disorders of both mitral and aortic valves; I25.10 Atherosclerotic heart disease of native coronary artery without angina pectoris; I27.81 Cor pulmonale (chronic); I48.91 Unspecified atrial fibrillation; I70.0 Atherosclerosis of aorta; J44.9 Chronic obstructive pulmonary disease, unspecified; J98.01 Acute bronchospasm; N14.1 Nephropathy induced by other drugs, medicaments and biological substances; N43.3 Hydrocele, unspecified; M54.9 Dorsalgia, unspecified; N50.89 Other specified disorders of the male genital organs; N62 Hypertrophy of breast; T50.8X5A Adverse effect of diagnostic agents, initial encounter; Y92.89 Other specified places as the place of occurrence of the external cause; Z79.4 Long term (current) use of insulin; Z80.0 Family history of malignant neoplasm of digestive organs; Z82.49 Family history of ischemic heart disease and other diseases of the circulatory system; Z99.81 Dependence on supplemental oxygen; Z83.3 Family history of diabetes mellitus; Z87.891 Personal history of nicotine dependence; Z90.49 Acquired absence of other specified parts of digestive tract; Z95.1 Presence of aortocoronary bypass graft
CPT/HCPCS: 36415; 36600; 70450; 71045; 71260; 71275; 74177; 76870; 76937; 80048; 80053; 80202; 81001; 82570; 82805; 82962; 83036; 83520; 83735; 83880; 84100; 84156; 84443; 84484; 84550; 85025; 85379; 85610; 85730; 86038; 86160; 86256; 86850; 86900; 86901; 87040; 87081; 87086; 90935; 93005; 93306; 93970; 94640; 94660; 96374; 97110; 97163; 99291; A6257; J0696; J1642; J1815; J3480; J7060; Q9956

== ENCOUNTER 2018-01-26 19:45 | Inpatient (IN) | payer OTHER ==
[~2018-01-26] VITALS: Ht 177.8 cm; Wt 145.2 kg
[~2018-01-26 19:45] MED LIST changes: +ASPI81TA27 PO; -ATOR80TA PO; +CHOL20007 PO; +GABA-339 PO; -GABA300C PO; -HYDR-4683 PO; -TER5T; -[UNRECOGNIZED DRUG - CODE]
[2018-01-26] MEDS ORDERED: ONDANSETRON HCL 4 MG/2 ML VIAL IV ONE (20:15)
[2018-01-26] MEDS ORDERED: MORPHINE SULFATE 4 MG/ML SYR/VIAL IV ONE (20:15)
[2018-01-26 21:25] LABS: Basophils # (auto) 0 uL; Eosinophils # (auto) 0.1 uL; Lymphocytes # (auto) 0.4 uL; Monocytes # (auto) 0.1 uL
[2018-01-26 21:27] LABS: Basophils % (auto) 0.3 % (0.0-2.0); Eosinophils % (auto) 3.1 % (0.0-7.0); Hematocrit 33.1 % (41.0-53.0); Hemoglobin 11.4 g/dL (13.5-17.5); Lymphocytes % (auto) 12.6 % (10.0-50.0); Mean Corpuscular Hemoglobin 35.7 pg (28.0-32.0); Mean Corpuscular Hgb Conc. 34.4 g/dL (32.0-36.0); Mean Corpuscular Volume 103.7 fL (80.0-100.0); Monocytes % (auto) 5.3 % (0.0-12.0); Neutrophils # (auto) 2.2 uL; Neutrophils % (auto) 78.7 % (37.0-80.0); Nucleated Red Blood Cells % 0.2 %; Platelet Count (auto) 38 10^3/uL (140-450); Red Cell Distribution Width 15.8 % (11.8-14.3); White Blood Cell 2.8 10^3/uL (4.4-10.8)
[2018-01-26 21:44] LABS: INR 1.2 (0.9-1.15); Partial Thromboplastin Time 25.6 sec (23.78-33.04); Prothrombin Time 12.7 sec (9.27-12.13)
[2018-01-26 21:51] LABS: Albumin 2.8 g/dL (3.4-5.0); BUN/Creatinine Ratio 22.7; Bilirubin, Total 2.9 mg/dL (0.2-1.0); Calcium 8.3 mg/dL (8.5-10.1); Total Protein 5.4 g/dL (6.4-8.2)
[2018-01-27] MEDS ORDERED: IOHEXOL 350 MG/ML 100ML IJ ONE (01:35)
[2018-01-27] MEDS ORDERED: MORPHINE SULF INJ 2 MG/ML SYRINGE 1ML IV PRN (05:30)
[2018-01-27] MEDS ORDERED: NITROGLYCERIN 0.4 MG SL TAB SL PRN (05:30)
[2018-01-27] MEDS ORDERED: ONDANSETRON HCL 4 MG/2 ML VIAL IV PRN (05:30)
[2018-01-27] MEDS: IPRATROPIUM BROM 0.5 MG/2.5ML INH SOL NEB SCH ×2 (06:20→11:52)
[2018-01-27] MEDS: ALBUTEROL SULF 2.5 MG/0.5ML(0.5%) NEB SOLN NEB SCH ×2 (06:20→11:52)
[2018-01-27 07:44] LABS: BUN/Creatinine Ratio 27.3; Potassium 3.8 mmol/L (3.5-5.1)
[2018-01-27] MEDS ORDERED: DEXTROSE 50% SYRINGE 50 ML IV ONE (07:50)
[2018-01-27] MEDS: DOXYCYCLINE 100MG/250ML 250 ML IV SCH ×2 (08:55→21:00)
[2018-01-27] MEDS: GABAPENTIN 300 MG CAP PO SCH ×3 (08:55→21:49)
[2018-01-27] MEDS: PANTOPRAZOLE 40 MG/10 ML VIAL IV SCH (10:33)
[2018-01-27] MEDS: ASPirin-EC 81 mg tab PO SCH (10:33)
[2018-01-27] MEDS: ENOXAPARIN SOD 40 MG/0.4 ML SYRINGE SC SCH (10:33)
[2018-01-27] MEDS: SPIRONOLACTONE 25 MG TAB PO SCH (10:33)
[2018-01-27 11:06] VITALS: BP 138/80
[2018-01-27 11:27] LABS: Basophils # (auto) 0 uL; Basophils % (auto) 0.4 % (0.0-2.0); Eosinophils # (auto) 0.1 uL; Eosinophils % (auto) 3.2 % (0.0-7.0); Hematocrit 35.3 % (41.0-53.0); Hemoglobin 11.8 g/dL (13.5-17.5); Lymphocytes # (auto) 0.3 uL; Lymphocytes % (auto) 11.6 % (10.0-50.0); Mean Corpuscular Hemoglobin 34.3 pg (28.0-32.0); Mean Corpuscular Hgb Conc. 33.3 g/dL (32.0-36.0); Mean Corpuscular Volume 103.1 fL (80.0-100.0); Monocytes # (auto) 0.2 uL; Monocytes % (auto) 6.5 % (0.0-12.0); Neutrophils # (auto) 2.1 uL; Neutrophils % (auto) 78.3 % (37.0-80.0); Platelet Count (auto) 38 10^3/uL (140-450); Red Blood Cells 3.43 10^6/uL (4.5-5.90); Red Cell Distribution Width 15.8 % (11.8-14.3); White Blood Cell 2.7 10^3/uL (4.4-10.8)
[2018-01-27] MEDS: ACETAMINOPHEN 500 MG TAB PO PRN (11:38)
[2018-01-27] MEDS ORDERED: DEXTROSE (50%) 50ML SYRG IV PRN (15:30)
[2018-01-27] MEDS: IPRATROPIUM BROM 0.5 MG/2.5ML INH SOL NEB PRN ×2 (16:16→18:22)
[2018-01-27] MEDS: ALBUTEROL SULF 2.5 MG/0.5ML(0.5%) NEB SOLN NEB PRN ×2 (16:16→18:22)
[2018-01-27] MEDS: HYDROcodone-ACET 10/325MG TAB PO PRN (16:48)
[2018-01-27] MEDS: InsuLIN REG 1unit/0.01ml Soln (100units/ml) SC SCH ×2 (17:00→21:58)
[2018-01-27] MEDS: ACCU-CHEK COMFORT CURVE STRIP VI SCH ×2 (17:00→21:55)
[2018-01-27 21:15] VITALS: BP 136/62
[2018-01-27 22:00] VITALS: BP 136/62
[2018-01-28] MEDS: HYDROcodone-ACET 10/325MG TAB PO PRN ×3 (00:09→12:14)
[2018-01-28 05:00] VITALS: BP 125/66
[2018-01-28 05:47] LABS: Basophils # (auto) 0 uL; Basophils % (auto) 0.5 % (0.0-2.0); Eosinophils # (auto) 0.1 uL; Hemoglobin 11.3 g/dL (13.5-17.5); Lymphocytes # (auto) 0.4 uL; Lymphocytes % (auto) 14.4 % (10.0-50.0); Monocytes # (auto) 0.2 uL; Neutrophils # (auto) 1.9 uL
[2018-01-28 05:49] LABS: Eosinophils % (auto) 5.5 % (0.0-7.0); Hematocrit 32.9 % (41.0-53.0); Mean Corpuscular Hemoglobin 35.3 pg (28.0-32.0); Mean Corpuscular Hgb Conc. 34.3 g/dL (32.0-36.0); Mean Corpuscular Volume 102.8 fL (80.0-100.0); Monocytes % (auto) 8.6 % (0.0-12.0); Platelet Count (auto) 42 10^3/uL (140-450); Red Cell Distribution Width 16.1 % (11.8-14.3); White Blood Cell 2.7 10^3/uL (4.4-10.8)
[2018-01-28 06:06] LABS: Albumin 2.8 g/dL (3.4-5.0); BUN/Creatinine Ratio 21.6; Bilirubin, Total 2.7 mg/dL (0.2-1.0); Calcium 8.7 mg/dL (8.5-10.1); Magnesium 2.4 mg/dL (1.6-2.6); Potassium 4.3 mmol/L (3.5-5.1); Total Protein 5.5 g/dL (6.4-8.2)
[2018-01-28] MEDS: GABAPENTIN 300 MG CAP PO SCH ×3 (06:10→21:43)
[2018-01-28] MEDS: InsuLIN REG 1unit/0.01ml Soln (100units/ml) SC SCH ×4 (06:24→21:44)
[2018-01-28] MEDS: ACCU-CHEK COMFORT CURVE STRIP VI SCH ×4 (06:24→21:47)
[2018-01-28 09:00] VITALS: BP 122/58
[2018-01-28] MEDS: PANTOPRAZOLE 40 MG/10 ML VIAL IV SCH (09:14)
[2018-01-28] MEDS: SPIRONOLACTONE 25 MG TAB PO SCH (09:15)
[2018-01-28] MEDS: ENOXAPARIN SOD 40 MG/0.4 ML SYRINGE SC SCH (09:15)
[2018-01-28] MEDS: ASPirin-EC 81 mg tab PO SCH (09:16)
[2018-01-28] MEDS: DOXYCYCLINE 100MG/250ML 250 ML IV SCH (09:17)
[2018-01-28] MEDS: POTASSIUM CHL 10 Meq TABLET PO SCH (09:17)
[2018-01-28] MEDS: FUROSEMIDE 40 MG TAB PO SCH (09:17)
[2018-01-28] MEDS ORDERED: IBUPROFEN 600 MG TAB PO PRN (11:00)
[2018-01-28 12:42] VITALS: BP 121/64
[2018-01-28] MEDS: ACETAMINOPHEN 500 MG TAB PO PRN ×2 (15:57→17:54)
[2018-01-28 17:00] VITALS: BP 108/52
[2018-01-28] MEDS: CYCLOBENZAPRINE HCL 10 MG TAB PO PRN (21:45)
[2018-01-28 22:00] VITALS: BP 117/61
[2018-01-29] VITALS (8 sets, daily range): BP systolic 107–151; BP diastolic 49–77
[2018-01-29 06:09] LABS: Basophils # (auto) 0 uL; Eosinophils # (auto) 0.2 uL; Hematocrit 33.5 % (41.0-53.0); Hemoglobin 11.5 g/dL (13.5-17.5); Lymphocytes # (auto) 0.4 uL; Mean Corpuscular Hgb Conc. 34.3 g/dL (32.0-36.0); Neutrophils # (auto) 1.3 uL; Nucleated Red Blood Cells % 0.1 %; Red Cell Distribution Width 15.9 % (11.8-14.3); White Blood Cell 2.1 10^3/uL (4.4-10.8)
[2018-01-29 06:13] LABS: Basophils % (auto) 0.7 % (0.0-2.0); Eosinophils % (auto) 7.8 % (0.0-7.0); Mean Corpuscular Hemoglobin 35.2 pg (28.0-32.0); Mean Corpuscular Volume 102.8 fL (80.0-100.0); Monocytes # (auto) 0.2 uL; Monocytes % (auto) 10.5 % (0.0-12.0); Platelet Count (auto) 46 10^3/uL (140-450); Red Blood Cells 3.26 10^6/uL (4.5-5.90)
[2018-01-29] MEDS: InsuLIN REG 1unit/0.01ml Soln (100units/ml) SC SCH ×4 (06:14→22:29)
[2018-01-29] MEDS: GABAPENTIN 300 MG CAP PO SCH ×3 (06:14→22:28)
[2018-01-29] MEDS: ACCU-CHEK COMFORT CURVE STRIP VI SCH ×4 (06:17→22:00)
[2018-01-29 06:24] LABS: Potassium 4.6 mmol/L (3.5-5.1)
[2018-01-29 06:30] LABS: Albumin 2.7 g/dL (3.4-5.0); BUN/Creatinine Ratio 20.5; Calcium 8.7 mg/dL (8.5-10.1)
[2018-01-29 06:32] LABS: Bilirubin, Total 1.7 mg/dL (0.2-1.0); Total Protein 5.5 g/dL (6.4-8.2)
[2018-01-29] MEDS: PANTOPRAZOLE 40 MG/10 ML VIAL IV SCH (10:14)
[2018-01-29] MEDS: SPIRONOLACTONE 25 MG TAB PO SCH (10:14)
[2018-01-29] MEDS: ASPirin-EC 81 mg tab PO SCH (10:15)
[2018-01-29] MEDS: FUROSEMIDE 40 MG TAB PO SCH ×2 (10:15→22:28)
[2018-01-29] MEDS: POTASSIUM CHL 10 Meq TABLET PO SCH (10:15)
[2018-01-29] MEDS: ENOXAPARIN SOD 40 MG/0.4 ML SYRINGE SC SCH (10:15)
[2018-01-29] MEDS: HYDROcodone-ACET 10/325MG TAB PO PRN (10:17)
[2018-01-29] MEDS ORDERED: FURO40TA PO (11:52)
[2018-01-29] MEDS: CYCLOBENZAPRINE HCL 10 MG TAB PO PRN (19:55)
[2018-01-30 04:40] VITALS: BP 139/80
[2018-01-30] MEDS: GABAPENTIN 300 MG CAP PO SCH ×2 (05:58→14:00)
[2018-01-30] MEDS: CYCLOBENZAPRINE HCL 10 MG TAB PO PRN (05:59)
[2018-01-30] MEDS: InsuLIN REG 1unit/0.01ml Soln (100units/ml) SC SCH ×2 (06:08→11:30)
[2018-01-30] MEDS: ACCU-CHEK COMFORT CURVE STRIP VI SCH ×2 (06:08→11:30)
[2018-01-30 06:24] LABS: Basophils # (auto) 0 uL; Eosinophils # (auto) 0.1 uL; Hematocrit 33.9 % (41.0-53.0); Hemoglobin 11.5 g/dL (13.5-17.5); Lymphocytes # (auto) 0.5 uL; Mean Corpuscular Hemoglobin 35.1 pg (28.0-32.0); Monocytes # (auto) 0.3 uL; Platelet Count (auto) 51 10^3/uL (140-450)
[2018-01-30 06:27] LABS: Basophils % (auto) 0.5 % (0.0-2.0); Eosinophils % (auto) 6.9 % (0.0-7.0); Lymphocytes % (auto) 27.3 % (10.0-50.0); Mean Corpuscular Volume 103.3 fL (80.0-100.0); Monocytes % (auto) 13.4 % (0.0-12.0); Neutrophils % (auto) 51.9 % (37.0-80.0); Nucleated Red Blood Cells % 0.2 %; Red Blood Cells 3.28 10^6/uL (4.5-5.90); Red Cell Distribution Width 15.9 % (11.8-14.3)
[2018-01-30 06:33] LABS: White Blood Cell 1.9 10^3/uL (4.4-10.8)
[2018-01-30 06:45] LABS: Albumin 2.7 g/dL (3.4-5.0); Bilirubin, Direct 0.7 mg/dL (0-0.2); Total Protein 5.6 g/dL (6.4-8.2)
[2018-01-30 07:46] VITALS: BP 128/73
[2018-01-30] MEDS: HYDROcodone-ACET 10/325MG TAB PO PRN (08:11)
[2018-01-30] MEDS ORDERED: CYCL7.5T15 PO (08:51)
[2018-01-30] MEDS: PANTOPRAZOLE 40 MG/10 ML VIAL IV SCH (09:47)
[2018-01-30] MEDS: SPIRONOLACTONE 25 MG TAB PO SCH (09:47)
[2018-01-30] MEDS: POTASSIUM CHL 10 Meq TABLET PO SCH (09:47)
[2018-01-30] MEDS: ASPirin-EC 81 mg tab PO SCH (09:47)
[2018-01-30] MEDS: FUROSEMIDE 40 MG TAB PO SCH (09:47)
[2018-01-30] MEDS: ENOXAPARIN SOD 40 MG/0.4 ML SYRINGE SC SCH ×2 (09:48→09:56)
[2018-01-30 12:28] VITALS: BP 124/52
[2018-01-30 13:39] VITALS: BP 124/52
== END 2018-01-30 15:30 | disposition home health service (06) | DRG 291 ==
LOC: EDBD 19:45 → ER 19:45 → TELE 19:46 → TELE-EAST 01-27 20:16
PROVIDERS: ADMIT Nurse Practitioner Family; ATTEND Internal Medicine
PROC: 5A09357 Assistance with Respiratory Ventilation, Less than 24 Consecutive Hours, Continuous Positive Airway Pressure (ICD-10-PCS; principal; 2018-01-26)
PROC: 5A09457 Assistance with Respiratory Ventilation, 24-96 Consecutive Hours, Continuous Positive Airway Pressure (ICD-10-PCS; 2018-01-27)
PROC: 5A09357 Assistance with Respiratory Ventilation, Less than 24 Consecutive Hours, Continuous Positive Airway Pressure (ICD-10-PCS; 2018-01-28)
PROC: 5A09357 Assistance with Respiratory Ventilation, Less than 24 Consecutive Hours, Continuous Positive Airway Pressure (ICD-10-PCS; 2018-01-29)
DX: I11.0 Hypertensive heart disease with heart failure (principal); J18.9 Pneumonia, unspecified organism; J96.20 Acute and chronic respiratory failure, unspecified whether with hypoxia or hypercapnia; J44.1 Chronic obstructive pulmonary disease with (acute) exacerbation; E44.0 Moderate protein-calorie malnutrition; E87.1 Hypo-osmolality and hyponatremia; R18.8 Other ascites; Z68.42 Body mass index [BMI] 45.0-49.9, adult; K76.6 Portal hypertension; J44.0 Chronic obstructive pulmonary disease with (acute) lower respiratory infection; I50.33 Acute on chronic diastolic (congestive) heart failure; K74.60 Unspecified cirrhosis of liver; D63.8 Anemia in other chronic diseases classified elsewhere; D69.6 Thrombocytopenia, unspecified; E11.40 Type 2 diabetes mellitus with diabetic neuropathy, unspecified; E66.01 Morbid (severe) obesity due to excess calories; E78.5 Hyperlipidemia, unspecified; G47.33 Obstructive sleep apnea (adult) (pediatric); I25.10 Atherosclerotic heart disease of native coronary artery without angina pectoris; I50.9 Heart failure, unspecified; I87.2 Venous insufficiency (chronic) (peripheral); K21.9 Gastro-esophageal reflux disease without esophagitis; M19.011 Primary osteoarthritis, right shoulder; M19.012 Primary osteoarthritis, left shoulder; M47.812 Spondylosis without myelopathy or radiculopathy, cervical region; M77.9 Enthesopathy, unspecified; N40.0 Benign prostatic hyperplasia without lower urinary tract symptoms; Z79.82 Long term (current) use of aspirin; Z79.899 Other long term (current) drug therapy; Z82.49 Family history of ischemic heart disease and other diseases of the circulatory system; Z83.3 Family history of diabetes mellitus; Z85.038 Personal history of other malignant neoplasm of large intestine; Z87.891 Personal history of nicotine dependence; Z95.1 Presence of aortocoronary bypass graft; Z99.81 Dependence on supplemental oxygen; Z90.49 Acquired absence of other specified parts of digestive tract
CPT/HCPCS: 36415; 36600; 71275; 72125; 73030; 80048; 80053; 80061; 80076; 82805; 82962; 83735; 83880; 84484; 85025; 85379; 85610; 85730; 87081; 93005; 93971; 94640; 94660; 94761; 96365; 96375; 97110; 97163; A6257; C9113; J1815; J2405; J3490

== ENCOUNTER 2018-02-09 19:22 | Inpatient (IN) | payer OTHER ==
[~2018-02-09] VITALS: Ht 172.7 cm; Wt 129.0 kg
[~2018-02-09 19:22] MED LIST changes: +CYCL7.5T15 PO; +FURO40TA PO; -FURO40TA4 PO
[2018-02-09] MEDS ORDERED: ACETAMINOPHEN 650 MG RECT SUPP PR ONE ×2 (20:10→20:15)
[2018-02-09] MEDS ORDERED: ACETAMINOPHEN 325 MG TAB PO ONE (20:15)
[2018-02-09] MEDS ORDERED: LACTULOSE 20Gm/30ML SOLN PR ONE (20:15)
[2018-02-09] MEDS ORDERED: ACETAMINOPHEN 120 MG RECT SUPP PR ONE (20:20)
[2018-02-09] MEDS ORDERED: SODIUM CHLORIDE 0.9% 3,800 ML IV ONE (20:30)
[2018-02-09] MEDS ORDERED: LEVOFLOXACIN 750MG 150 ML IV ONE (20:30)
[2018-02-09] MEDS ORDERED: ALBUTEROL SULF 2.5 MG/0.5ML(0.5%) NEB SOLN NEB ONE (20:30)
[2018-02-09] MEDS ORDERED: IPRATROPIUM BROM 0.5 MG/2.5ML INH SOL NEB ONE (20:30)
[2018-02-09 20:38] LABS: Basophils # (auto) 0 uL; Basophils % (auto) 0.5 % (0.0-2.0); Eosinophils # (auto) 0 uL; Eosinophils % (auto) 0.1 % (0.0-7.0); Hematocrit 36.4 % (41.0-53.0); Hemoglobin 12.4 g/dL (13.5-17.5); Lymphocytes # (auto) 0.4 uL; Lymphocytes % (auto) 7.3 % (10.0-50.0); Mean Corpuscular Hemoglobin 34.6 pg (28.0-32.0); Mean Corpuscular Hgb Conc. 34.1 g/dL (32.0-36.0); Mean Corpuscular Volume 101.4 fL (80.0-100.0); Monocytes # (auto) 0.7 uL; Monocytes % (auto) 13.5 % (0.0-12.0); Neutrophils # (auto) 4.3 uL; Neutrophils % (auto) 78.6 % (37.0-80.0); Nucleated Red Blood Cells % 0.1 %; Platelet Count (auto) 91 10^3/uL (140-450); Red Blood Cells 3.59 10^6/uL (4.5-5.90); Red Cell Distribution Width 15.8 % (11.8-14.3); White Blood Cell 5.5 10^3/uL (4.4-10.8)
[2018-02-09 20:51] LABS: INR 1.1 (0.9-1.15); Partial Thromboplastin Time 26.2 sec (23.78-33.04); Prothrombin Time 11.7 sec (9.27-12.13)
[2018-02-09 20:55] LABS: Alanine Aminotransferase 52 U/L (16-61); Albumin 2.6 g/dL (3.4-5.0); Anion Gap 7 (5-15); Aspartate Aminotransferase 54 U/L (15-37); BUN/Creatinine Ratio 15.3; Blood Alcohol < 3.0 mg/dL (0-5); Blood Urea Nitrogen 15 mg/dL (7-18); Calcium 8.5 mg/dL (8.5-10.1); Carbon Dioxide 29 mmol/L (21-32); Chloride 101 mmol/L (98-107); GFR African American 98 mL/min; GFR Non-African American 81 mL/min; Glucose 210 mg/dL (74-106); Lactic Acid w/Reflex 2.6 mmol/L (0.4-2.0); Potassium 4.4 mmol/L (3.5-5.1); Sodium 137 mmol/L (136-145)
[2018-02-09 21:00] LABS: Alkaline Phosphatase 180 U/L (45-117); Bilirubin, Total 2.1 mg/dL (0.2-1.0)
[2018-02-09 21:20] LABS: Urine Bacteria NONE SEEN /hpf (None Seen); Urine Blood Negative /uL (Negative); Urine Hyaline Cast FEW /lpf (0 - 2); Urine Specific Gravity 1.013 (1.001-1.035); Urine WBC 1 /hpf (0 - 3)
[2018-02-09 21:32] LABS: Alcohol, Urine < 3.0 mg/dL (0-5); Amphetamine Screen, Urine NEGATIVE (NEGATIVE); Barbiturate Scree,Urine NEGATIVE (NEGATIVE); Benzodiazephine Screen, Urine NEGATIVE (NEGATIVE); Cannabinoid Screen, Urine NEGATIVE (NEGATIVE); Cocaine Screen, Urine NEGATIVE (NEGATIVE); Opiate Scree,Urine NEGATIVE (NEGATIVE); Phencyclidine Screen, Urine NEGATIVE (NEGATIVE)
[2018-02-09] MEDS ORDERED: ACETAMINOPHEN 325 MG TAB PO PRN (22:15)
[2018-02-09] MEDS ORDERED: NITROGLYCERIN 0.4 MG SL TAB SL PRN (22:15)
[2018-02-09] MEDS ORDERED: ONDANSETRON HCL 4 MG/2 ML VIAL IV PRN (22:15)
[2018-02-09] MEDS ORDERED: DEXTROSE (50%) 50ML SYRG IV PRN (22:15)
[2018-02-09] MEDS ORDERED: VANCOMYCIN PER PHARMACY 0 MG IV SCH (22:15)
[2018-02-09] MEDS ORDERED: MORPHINE SULF INJ 2 MG/ML SYRINGE 1ML IV PRN (22:15)
[2018-02-09] MEDS ORDERED: ALBUTEROL SULF 2.5 MG/0.5ML(0.5%) NEB SOLN NEB PRN (22:15)
[2018-02-09] MEDS ORDERED: SODIUM CHLORIDE 0.9% 500 ML IV ONE (22:15)
[2018-02-09 22:16] VITALS: BP 123/61
[2018-02-09] MEDS: SODIUM CHLORIDE 0.9% 1,000 ML IV SCH (22:30)
[2018-02-10] MEDS: ACCU-CHEK COMFORT CURVE STRIP VI SCH ×4 (00:09→18:28)
[2018-02-10] MEDS: PIPERACILLIN-TAZOB 3.375GM 100 ML IV SCH ×4 (00:09→19:40)
[2018-02-10] MEDS ORDERED: LACTULOSE 20Gm/30ML SOLN PO ONE (00:15)
[2018-02-10] MEDS: InsuLIN REG 1unit/0.01ml Soln (100units/ml) SC SCH ×4 (00:16→18:32)
[2018-02-10] MEDS ORDERED: VANCOMYCIN 1GM/250ML 250 ML IV ONE (00:30)
[2018-02-10 00:59] LABS: Amylase 43 U/L (25-115); Lipase 83 U/L (73-393)
[2018-02-10] MEDS: FUROSEMIDE 20 MG/2 ML VIAL IV SCH ×2 (06:56→18:28)
[2018-02-10] MEDS: LACTULOSE 20Gm/30ML SOLN PO SCH ×2 (11:18→20:20)
[2018-02-10] MEDS: VANCOMYCIN 1GM/250ML 250 ML IV SCH ×2 (11:18→18:27)
[2018-02-10] MEDS: PANTOPRAZOLE 40 MG/10 ML VIAL IV SCH (11:18)
[2018-02-10] MEDS: ENOXAPARIN SOD 40 MG/0.4 ML SYRINGE SC SCH (11:18)
[2018-02-10] MEDS: Glucerna Carbsteady SHAKE Vanilla 8oz PO SCH ×2 (12:00→18:00)
[2018-02-10 13:11] LABS: Hematocrit 33.6 % (41.0-53.0); Red Blood Cells 3.28 10^6/uL (4.5-5.90); White Blood Cell 3.5 10^3/uL (4.4-10.8)
[2018-02-10 13:13] LABS: Hemoglobin 11.3 g/dL (13.5-17.5); Mean Corpuscular Hemoglobin 34.5 pg (28.0-32.0); Mean Corpuscular Hgb Conc. 33.7 g/dL (32.0-36.0); Mean Corpuscular Volume 102.6 fL (80.0-100.0); Platelet Count (auto) 70 10^3/uL (140-450); Red Cell Distribution Width 16.2 % (11.8-14.3)
[2018-02-10 13:24] LABS: Basophils % (manual) 0 (0.0-2.0); Blast Cells 0; Metamyelocytes % 0; Myelocytes % 0; Promyelocytes % 0; Reactive Lymphocytes 0
[2018-02-10 13:35] LABS: Albumin 2.6 g/dL (3.4-5.0); BUN/Creatinine Ratio 17.6; Bilirubin, Total 2.1 mg/dL (0.2-1.0); Calcium 8.4 mg/dL (8.5-10.1); Potassium 3.6 mmol/L (3.5-5.1); Total Protein 5.7 g/dL (6.4-8.2)
[2018-02-10 14:18] LABS: Band Neutrophils % (manual) 1; Eosinophils % (manual) 1 (0-7); Lymphocytes % (manual) 13 (10.0-50.0); Monocytes % (manual) 15 (0-12)
[2018-02-10] MEDS: SODIUM CHLORIDE 0.9% 1,000 ML IV SCH (14:55)
[2018-02-10] MEDS ORDERED: TEMAZEPAM 15 MG CAP PO ONE (19:45)
[2018-02-10 23:35] VITALS: BP 127/65
[2018-02-11] VITALS (7 sets, daily range): BP systolic 117–144; BP diastolic 51–81
[2018-02-11] MEDS: PIPERACILLIN-TAZOB 3.375GM 100 ML IV SCH ×5 (00:38→22:35)
[2018-02-11] MEDS: ACCU-CHEK COMFORT CURVE STRIP VI SCH ×5 (00:39→23:52)
[2018-02-11] MEDS: InsuLIN REG 1unit/0.01ml Soln (100units/ml) SC SCH ×5 (00:40→23:52)
[2018-02-11] MEDS: VANCOMYCIN 1GM/250ML 250 ML IV SCH ×3 (02:26→18:23)
[2018-02-11] MEDS: HYDROcodone-ACET 5/325MG TAB PO PRN (05:36)
[2018-02-11] MEDS: FUROSEMIDE 20 MG/2 ML VIAL IV SCH ×2 (05:44→18:24)
[2018-02-11] MEDS: SODIUM CHLORIDE 0.9% 1,000 ML IV SCH (06:27)
[2018-02-11 06:52] LABS: Basophils # (auto) 0 uL; Eosinophils # (auto) 0 uL; Hemoglobin 11.7 g/dL (13.5-17.5); Lymphocytes # (auto) 0.6 uL; Monocytes # (auto) 0.5 uL; Nucleated Red Blood Cells % 0.1 %
[2018-02-11 06:56] LABS: Basophils % (auto) 0.6 % (0.0-2.0); Hematocrit 34.8 % (41.0-53.0); Lymphocytes % (auto) 19.1 % (10.0-50.0); Mean Corpuscular Hemoglobin 34.4 pg (28.0-32.0); Mean Corpuscular Hgb Conc. 33.5 g/dL (32.0-36.0); Mean Corpuscular Volume 102.5 fL (80.0-100.0); Monocytes % (auto) 16.5 % (0.0-12.0); Neutrophils % (auto) 62.8 % (37.0-80.0); Platelet Count (auto) 78 10^3/uL (140-450); Red Blood Cells 3.39 10^6/uL (4.5-5.90); Red Cell Distribution Width 16.1 % (11.8-14.3); White Blood Cell 3.2 10^3/uL (4.4-10.8)
[2018-02-11 07:20] LABS: Albumin 2.7 g/dL (3.4-5.0); BUN/Creatinine Ratio 16.5; Bilirubin, Total 1.6 mg/dL (0.2-1.0); Calcium 8.5 mg/dL (8.5-10.1); Potassium 3.4 mmol/L (3.5-5.1); Total Protein 5.7 g/dL (6.4-8.2)
[2018-02-11] MEDS: Glucerna Carbsteady SHAKE Vanilla 8oz PO SCH ×3 (08:57→18:24)
[2018-02-11] MEDS: ENOXAPARIN SOD 40 MG/0.4 ML SYRINGE SC SCH (10:31)
[2018-02-11] MEDS: PANTOPRAZOLE 40 MG/10 ML VIAL IV SCH (10:32)
[2018-02-11] MEDS: LACTULOSE 20Gm/30ML SOLN PO SCH ×3 (10:32→22:40)
[2018-02-11] MEDS ORDERED: POTASSIUM EFFERVESENT TAB 25 MEQ PO ONE (10:45)
[2018-02-12] MEDS: HYDROcodone-ACET 5/325MG TAB PO PRN (00:28)
[2018-02-12] MEDS: SODIUM CHLORIDE 0.9% 1,000 ML IV SCH ×2 (00:28→16:59)
[2018-02-12] MEDS: VANCOMYCIN 1GM/250ML 250 ML IV SCH ×3 (01:49→18:00)
[2018-02-12] MEDS: PIPERACILLIN-TAZOB 3.375GM 100 ML IV SCH ×4 (05:08→22:55)
[2018-02-12] MEDS: FUROSEMIDE 20 MG/2 ML VIAL IV SCH ×2 (05:52→18:03)
[2018-02-12] MEDS: ACCU-CHEK COMFORT CURVE STRIP VI SCH ×3 (05:52→18:03)
[2018-02-12] MEDS: InsuLIN REG 1unit/0.01ml Soln (100units/ml) SC SCH ×3 (05:53→18:03)
[2018-02-12 05:58] LABS: Basophils # (auto) 0 uL; Eosinophils # (auto) 0 uL; Hemoglobin 11.5 g/dL (13.5-17.5); Monocytes # (auto) 0.4 uL; Neutrophils # (auto) 1.6 uL
[2018-02-12 05:59] LABS: BUN/Creatinine Ratio 14.9; Calcium 8.4 mg/dL (8.5-10.1); Potassium 3.5 mmol/L (3.5-5.1)
[2018-02-12 06:01] LABS: Basophils % (auto) 0.9 % (0.0-2.0); Eosinophils % (auto) 1.4 % (0.0-7.0); Hematocrit 34.2 % (41.0-53.0); Lymphocytes # (auto) 0.8 uL; Lymphocytes % (auto) 26.4 % (10.0-50.0); Mean Corpuscular Hemoglobin 34.2 pg (28.0-32.0); Mean Corpuscular Hgb Conc. 33.6 g/dL (32.0-36.0); Mean Corpuscular Volume 101.7 fL (80.0-100.0); Monocytes % (auto) 15.3 % (0.0-12.0); Nucleated Red Blood Cells % 0.2 %; Platelet Count (auto) 77 10^3/uL (140-450); Red Blood Cells 3.37 10^6/uL (4.5-5.90); Red Cell Distribution Width 16.3 % (11.8-14.3); White Blood Cell 2.9 10^3/uL (4.4-10.8)
[2018-02-12 06:12] VITALS: BP 144/70
[2018-02-12 08:12] VITALS: BP 138/67
[2018-02-12] MEDS: PANTOPRAZOLE 40 MG/10 ML VIAL IV SCH (11:17)
[2018-02-12] MEDS: Glucerna Carbsteady SHAKE Vanilla 8oz PO SCH ×3 (11:17→18:03)
[2018-02-12] MEDS: ENOXAPARIN SOD 40 MG/0.4 ML SYRINGE SC SCH (11:17)
[2018-02-12 12:05] VITALS: BP 151/69
[2018-02-12] MEDS: LACTULOSE 20Gm/30ML SOLN PO SCH ×2 (14:55→22:11)
[2018-02-12 16:24] VITALS: BP 138/80
[2018-02-12 20:00] VITALS: BP 139/72
[2018-02-12 22:13] VITALS: BP 139/72
[2018-02-12] MEDS ORDERED: TEMAZEPAM 15 MG CAP PO ONE (22:15)
[2018-02-13] MEDS: ACCU-CHEK COMFORT CURVE STRIP VI SCH ×4 (00:15→18:00)
[2018-02-13] MEDS: InsuLIN REG 1unit/0.01ml Soln (100units/ml) SC SCH ×4 (00:16→18:00)
[2018-02-13 01:17] VITALS: BP 139/72
[2018-02-13] MEDS: VANCOMYCIN 1GM/250ML 250 ML IV SCH ×3 (01:53→18:00)
[2018-02-13 05:00] VITALS: BP 134/74
[2018-02-13] MEDS: PIPERACILLIN-TAZOB 3.375GM 100 ML IV SCH ×3 (05:19→17:00)
[2018-02-13] MEDS: FUROSEMIDE 20 MG/2 ML VIAL IV SCH ×2 (05:57→18:00)
[2018-02-13] MEDS: LACTULOSE 20Gm/30ML SOLN PO SCH ×2 (05:58→14:00)
[2018-02-13 06:53] LABS: Basophils # (auto) 0 uL; Eosinophils # (auto) 0 uL; Monocytes # (auto) 0.4 uL; Neutrophils # (auto) 1.3 uL; Nucleated Red Blood Cells % 0.2 %; White Blood Cell 2.4 10^3/uL (4.4-10.8)
[2018-02-13 06:55] LABS: Eosinophils % (auto) 1.7 % (0.0-7.0); Hematocrit 35.1 % (41.0-53.0); Hemoglobin 11.9 g/dL (13.5-17.5); Lymphocytes # (auto) 0.7 uL; Lymphocytes % (auto) 26.9 % (10.0-50.0); Mean Corpuscular Hemoglobin 34.7 pg (28.0-32.0); Mean Corpuscular Hgb Conc. 33.8 g/dL (32.0-36.0); Mean Corpuscular Volume 102.6 fL (80.0-100.0); Neutrophils % (auto) 52.4 % (37.0-80.0); Platelet Count (auto) 74 10^3/uL (140-450); Red Blood Cells 3.42 10^6/uL (4.5-5.90); Red Cell Distribution Width 15.9 % (11.8-14.3)
[2018-02-13 07:19] LABS: Albumin 2.5 g/dL (3.4-5.0); BUN/Creatinine Ratio 10.7; Calcium 8.4 mg/dL (8.5-10.1); Potassium 3.3 mmol/L (3.5-5.1)
[2018-02-13 07:22] LABS: Bilirubin, Total 1.5 mg/dL (0.2-1.0); Total Protein 5.7 g/dL (6.4-8.2)
[2018-02-13 09:00] VITALS: BP 129/61
[2018-02-13] MEDS: Glucerna Carbsteady SHAKE Vanilla 8oz PO SCH ×3 (12:36→18:00)
[2018-02-13] MEDS: SODIUM CHLORIDE 0.9% 1,000 ML IV SCH (12:36)
[2018-02-13] MEDS: PANTOPRAZOLE 40 MG/10 ML VIAL IV SCH (12:37)
[2018-02-13] MEDS: ENOXAPARIN SOD 40 MG/0.4 ML SYRINGE SC SCH (12:37)
[2018-02-13 13:00] VITALS: BP 123/65
[2018-02-13] MEDS ORDERED: POTASSIUM EFFERVESENT TAB 25 MEQ PO ONE (16:15)
[2018-02-13 16:49] VITALS: BP 123/65
[2018-02-13 17:11] VITALS: BP 124/57
[2018-02-13] MEDS: HYDROcodone-ACET 5/325MG TAB PO PRN (17:16)
== END 2018-02-13 19:20 | DRG 871 ==
LOC: EDBD 19:22 → ER 19:22 → OVERFLOW 19:23 → WEST WING 02-10 22:29 → TELE-WESTW 02-11 19:27
PROVIDERS: ADMIT Nurse Practitioner; ATTEND Internal Medicine
PROC: 5A09357 Assistance with Respiratory Ventilation, Less than 24 Consecutive Hours, Continuous Positive Airway Pressure (ICD-10-PCS; principal; 2018-02-09)
PROC: 5A09357 Assistance with Respiratory Ventilation, Less than 24 Consecutive Hours, Continuous Positive Airway Pressure (ICD-10-PCS; 2018-02-11)
PROC: 5A09357 Assistance with Respiratory Ventilation, Less than 24 Consecutive Hours, Continuous Positive Airway Pressure (ICD-10-PCS; 2018-02-12)
PROC: 5A09357 Assistance with Respiratory Ventilation, Less than 24 Consecutive Hours, Continuous Positive Airway Pressure (ICD-10-PCS; 2018-02-13)
DX: A41.9 Sepsis, unspecified organism (principal); I50.43 Acute on chronic combined systolic (congestive) and diastolic (congestive) heart failure; J18.9 Pneumonia, unspecified organism; E44.0 Moderate protein-calorie malnutrition; J44.0 Chronic obstructive pulmonary disease with (acute) lower respiratory infection; J44.1 Chronic obstructive pulmonary disease with (acute) exacerbation; N39.0 Urinary tract infection, site not specified; R18.8 Other ascites; I13.0 Hypertensive heart and chronic kidney disease with heart failure and stage 1 through stage 4 chronic kidney disease, or unspecified chronic kidney disease; E11.21 Type 2 diabetes mellitus with diabetic nephropathy; K72.90 Hepatic failure, unspecified without coma; N18.9 Chronic kidney disease, unspecified; E11.22 Type 2 diabetes mellitus with diabetic chronic kidney disease; K74.60 Unspecified cirrhosis of liver; E78.5 Hyperlipidemia, unspecified; E87.6 Hypokalemia; G47.33 Obstructive sleep apnea (adult) (pediatric); I25.10 Atherosclerotic heart disease of native coronary artery without angina pectoris; I70.0 Atherosclerosis of aorta; J20.9 Acute bronchitis, unspecified; N40.0 Benign prostatic hyperplasia without lower urinary tract symptoms; N62 Hypertrophy of breast; Z80.0 Family history of malignant neoplasm of digestive organs; Z82.49 Family history of ischemic heart disease and other diseases of the circulatory system; Z83.3 Family history of diabetes mellitus; Z87.891 Personal history of nicotine dependence; Z90.49 Acquired absence of other specified parts of digestive tract; Z95.1 Presence of aortocoronary bypass graft; G89.29 Other chronic pain; M54.9 Dorsalgia, unspecified; Z88.5 Allergy status to narcotic agent; Z79.82 Long term (current) use of aspirin; Z79.4 Long term (current) use of insulin
CPT/HCPCS: 36415; 36600; 51702; 70450; 71045; 78582; 80048; 80053; 80202; 80307; 80320; 81001; 82140; 82150; 82805; 82962; 83036; 83605; 83690; 83735; 83880; 84484; 85007; 85025; 85027; 85379; 85610; 85730; 87040; 87081; 87493; 94640; 94660; 94761; 96365; 96366; 96372; 96375; 96376; 97110; 97163; 97530; 99291; A6257; C9113; G0378; J1815; J1956; J2543

== ENCOUNTER 2019-10-05 11:47 | Inpatient (IN) | payer OTHER, MEDICAID ==
[~2019-10-05] VITALS: Ht 167.6 cm; Wt 116.2 kg
[~2019-10-05 11:47] MED LIST changes: +ASPI81CH43 PO; -ASPI81TA27 PO; +ATOR20TA50 PO; +CAR3125T PO; +CHOL1000 PO; -CHOL20007 PO; -CYCL7.5T15 PO; +FER325T PO; -FERR-20 PO; -FLUO10TA18; -FURO40TA PO; -GABA-339 PO; +INSLANTI SC; -INSUINJ3 SC; +LACT10SO3 PO; -MAGN400C2 PO; -OMEP20TA30; +RIFA550T PO; +SPIR25TA88 PO; -SPIR50TA5 PO; +TAM04C PO; -TIOTCAP INH
[2019-10-05] MEDS ORDERED: SODIUM CHLORIDE 0.9% 1,000 ML IV ONE (11:56)
[2019-10-05 12:31] LABS: Basophils # (auto) 0 10 ^3/uL (0-0.2); Lymphocytes # (auto) 0.8 10 ^3/uL (0.4-5.4); Monocytes # (auto) 0.6 10 ^3/uL (0-1.3)
[2019-10-05 12:33] LABS: Basophils % (auto) 0.4 % (0.0-2.0); Eosinophils # (auto) 0.6 10 ^3/uL (0-0.8); Hemoglobin 13.6 g/dL (13.5-17.5); Lymphocytes % (auto) 14.1 % (10.0-50.0); Mean Corpuscular Hemoglobin 36.9 pg (28.0-32.0); Mean Corpuscular Hgb Conc. 34.8 g/dL (32.0-36.0); Monocytes % (auto) 11.2 % (0.0-12.0); Neutrophils # (auto) 3.6 10 ^3/uL (1.6-8.6); Neutrophils % (auto) 64.3 % (37.0-80.0); Red Blood Cells 3.68 10^6/uL (4.5-5.90); Red Cell Distribution Width 14.8 % (11.8-14.3); White Blood Cell 5.6 10^3/uL (4.4-10.8)
[2019-10-05 12:45] LABS: INR 1.16 (0.9-1.15); Partial Thromboplastin Time 27.4 sec (23.64-32.05)
[2019-10-05 12:47] LABS: Alanine Aminotransferase 34 U/L (16-61); Anion Gap 9 (5-15); Aspartate Aminotransferase 36 U/L (15-37); BUN/Creatinine Ratio 19.1; Blood Urea Nitrogen 29 mg/dL (7-18); Calcium 9.6 mg/dL (8.5-10.1); Carbon Dioxide 26 mmol/L (21-32); Chloride 99 mmol/L (98-107); GFR African American 58 mL/min; GFR Non-African American 48 mL/min; Glucose 248 mg/dL (74-106); Potassium 4.3 mmol/L (3.5-5.1); Sodium 134 mmol/L (136-145)
[2019-10-05 12:52] LABS: Alkaline Phosphatase 153 U/L (45-117); Bilirubin, Total 2.2 mg/dL (0.2-1.0); Total Protein 6.4 g/dL (6.4-8.2)
[2019-10-05 12:56] LABS: Platelet Count (auto) 59 10^3/uL (140-450)
[2019-10-05 13:04] LABS: Urine Bacteria NONE SEEN /hpf (None Seen); Urine Blood Negative /uL (Negative); Urine Specific Gravity 1.014 (1.001-1.035); Urine WBC 1 /hpf (0 - 3)
[2019-10-05 13:20] LABS: Alcohol, Urine < 3.0 mg/dL (0-5); Amphetamine Screen, Urine NEGATIVE (NEGATIVE); Barbiturate Scree,Urine NEGATIVE (NEGATIVE); Benzodiazephine Screen, Urine NEGATIVE (NEGATIVE); Cannabinoid Screen, Urine NEGATIVE (NEGATIVE); Cocaine Screen, Urine NEGATIVE (NEGATIVE); Phencyclidine Screen, Urine NEGATIVE (NEGATIVE)
[2019-10-05 13:29] LABS: Opiate Scree,Urine POSITIVE (NEGATIVE)
[2019-10-05] MEDS ORDERED: NEOMYCIN SULFATE 500 MG TAB PO ONE (13:30)
[2019-10-05] MEDS ORDERED: LACTULOSE 20Gm/30ML SOLN PO ONE (13:30)
[2019-10-05] MEDS ORDERED: NITROGLYCERIN 0.4 MG SL TAB SL PRN (14:15)
[2019-10-05] MEDS: LACTULOSE 20Gm/30ML SOLN PO SCH ×3 (14:15→18:01)
[2019-10-05] MEDS ORDERED: MORPHINE SULF INJ 2 MG/ML SYRINGE 1ML IV PRN (14:15)
[2019-10-05] MEDS ORDERED: DEXTROSE (50%) 50ML SYRG IV PRN (14:15)
--- NOTE | 2019-10-05 15:40 | NUR ---
Received a report from ER nurse.
[2019-10-05 16:00] VITALS: BP 114/48
--- NOTE | 2019-10-05 16:00 | NUR ---
Admit to [facility] from ER JOSE DELGADO,EPIFANIO Rashid admitted to [facility] via addison on telemetry monitor. Patient transferred to bed, connected to unit monitoring, and weighed by bedscale. Patient didn't open his eyes when calling his name, only morning, moving his arms but not legs, assessment done. Patient has lo's catheter from ER, drain to bag well. IV at left FA, NS lock. Called and spoke to his on the phone, plan of care discussed with his families, will continue to monitor and care.
[2019-10-05] MEDS: ACCU-CHEK COMFORT CURVE STRIP VI SCH ×2 (17:41→21:53)
[2019-10-05] MEDS: InsuLIN REG 1unit/0.01ml Soln (100units/ml) SC SCH ×2 (17:45→21:54)
[2019-10-05] MEDS: CARVEDILOL 3.125 MG TAB PO SCH ×2 (17:50→18:01)
[2019-10-05] MEDS: TAMSULOSIN HYDROCHLORIDE 0.4 MG CAP PO SCH (17:50)
--- NOTE | 2019-10-05 17:58 | NUR ---
Patient sitting up with high louis position, patient just moaning, not open his eyes, unable to swallow, wasted medication (Coreg and Lactulose) at this time. Paged and talked to Nasir RUSS, received new order, will carry out.
--- NOTE | 2019-10-05 18:50 | NUR ---
Rectal tube in place, giving Lactulose per rectal tube as order.
[2019-10-05] MEDS: LACTULOSE 20Gm/30ML SOLN PR SCH ×2 (19:49→23:09)
[2019-10-05 20:00] VITALS: BP 105/43
--- NOTE | 2019-10-05 20:00 | NUR ---
Opening Shift Note Assumed care of patient, lying in bed with eyes closed, hard to arousal. Pt opened eyes with light pain/ touching x1, non verbal. Breathing even and nonlabored, on room air, No S/S of distress/SOB or pain. 20G saline lock at left FA, CDI sites, flushed well. Generalized skin with rash and ecchymosis, mostly at the anterior body and both arms. Both lower legs swollen with hyperpigmentation and redness and some rashes. Hong's catheter hung to gravity with clear light el urine. Flexi seal in place, noted melena BM; dark red mixed with dark brown liquid; in the tubing after Lactulose ME was given at shift change, will page MD and notify. No visitor allowed at this time, will continue to monitor for changes Q1hr and PRN.
--- NOTE | 2019-10-05 20:50 | NUR ---
Melena/ new orders Hospitalist at bedside, Panchito CAPACITY PLANNING ANALYST. Pt's condition notified, new orders received, verbal orders read back and verified correct. -Protonix 40mg IV once -Protonix 40mg IV OD -GI consult -Stool occult blood -H&H once, will carry on all orders.
--- NOTE | 2019-10-05 21:00 | NUR ---
Family update. Patient's son called. Pt's condition updated to family.
[2019-10-05] MEDS ORDERED: PANTOPRAZOLE 40 MG/10 ML VIAL INJ IV ONE (21:15)
--- NOTE | 2019-10-05 21:16 | NUR ---
Stool sample for occult blood sent.
[2019-10-05 21:33] LABS: Hemoglobin 12.6 g/dL (13.5-17.5)
[2019-10-05 21:34] LABS: Hematocrit 36.9 % (41.0-53.0)
[2019-10-05] MEDS: ATORVASTATIN 20 MG TAB PO SCH (21:57)
[2019-10-05] MEDS: rifAXIMin 550 MG TAB PO SCH (21:57)
[2019-10-05 22:00] VITALS: BP 110/55
--- NOTE | 2019-10-05 22:00 | NUR ---
Condition update/ PO medication held. V/S stable. Pt GCS [id number], pupils brisk both eyes. Pt slept with period of agitation, spontaneous arms movement, sat up, moaned and then fell asleep. Pt was not follow commands. Held PO medication at this time due to ALOC and aspiration precaution. Continue care.
[2019-10-05] MEDS ORDERED: LACTULOSE 20Gm/30ML SOLN ONE (23:52)
[2019-10-06] VITALS (8 sets, daily range): BP systolic 108–147; BP diastolic 62–75
--- NOTE | 2019-10-06 00:15 | NUR ---
Condition update V/S and condition stable. EKG with PVC's and PAC's. Eyes opened spontaneously, moaned occasional when moving by self. Mouth care done with difficulty because agitated and resistive to care. Lactulose AR given, noted BM was clearer, less melena after unclamped. New rectal tube bag changed. Continue care.
--- NOTE | 2019-10-06 03:00 | NUR ---
Safety Representative at bedside.
[2019-10-06 03:17] LABS: Basophils # (auto) 0 10 ^3/uL (0-0.2); Eosinophils # (auto) 0.5 10 ^3/uL (0-0.8); Monocytes # (auto) 0.9 10 ^3/uL (0-1.3); Nucleated Red Blood Cells % 0.1 %; White Blood Cell 6.4 10^3/uL (4.4-10.8)
[2019-10-06 03:19] LABS: Basophils % (auto) 0.3 % (0.0-2.0); Hematocrit 37.1 % (41.0-53.0); Hemoglobin 12.7 g/dL (13.5-17.5); Lymphocytes % (auto) 15.6 % (10.0-50.0); Mean Corpuscular Hemoglobin 36.4 pg (28.0-32.0); Mean Corpuscular Hgb Conc. 34.3 g/dL (32.0-36.0); Mean Corpuscular Volume 106.2 fL (80.0-100.0); Monocytes % (auto) 14.2 % (0.0-12.0); Neutrophils % (auto) 61.9 % (37.0-80.0); Platelet Count (auto) 58 10^3/uL (140-450); Red Blood Cells 3.49 10^6/uL (4.5-5.90); Red Cell Distribution Width 14.9 % (11.8-14.3)
--- NOTE | 2019-10-06 03:20 | NUR ---
Condition update / Patient bathe/linen change Patient given complete bath with soap and warm water. Skin integrity assessed for any changes, no new changes, no open skin. Sacrum intact with no redness, z-guard applied for skin barrier. Js Flexi seal area with minimal leakage of small amount pasty brown and dark red melena. Js rectal area cleaned, z-guard applied. Hong's catheter care done with SureStep wipes. Hong's catheter globe changer changed. Z-guard applied to js area. Skin moisturizer applied for all dry areas and generalized body. Partial linens changed. All EKG electrodes changed. Patient repositioned to prevent pressure ulcer. Mouth care done with sensitive gag reflex and attempted to vomit, will continue to monitor N/V and will page MD for medication if not subsided. SCD applied to both legs as per MD order. Non skid socks re-wear after AM care done. Pt tolerated well with resistive while turning to the left side. No eyes opened, moaned, nonverbal while cleaning and turning. Continue care.
[2019-10-06 03:42] LABS: Albumin 2.7 g/dL (3.4-5.0); Calcium 9.5 mg/dL (8.5-10.1); Potassium 4.1 mmol/L (3.5-5.1)
[2019-10-06 03:45] LABS: BUN/Creatinine Ratio 19.2; Bilirubin, Total 2.2 mg/dL (0.2-1.0); Total Protein 5.9 g/dL (6.4-8.2)
--- NOTE | 2019-10-06 05:43 | NUR ---
Condition update/ desaturation Pt resting well, no agitation after AM care. Nauseated subsided after rest in high louis position for ~30mins. Pt snored on RA, POX fluctuating from 88- mid 90's %. Put Pt on O2NC 2LPM, after observing while snoring, POX better fluctuating from 92% to 98%. Continue care. Addendum: 10/06/19 at 0627 by Yosvany Ayala RN 06.00am POX decreased to 83% as the lowest while snoring with O2NC 2LPM. Increased O2NC to 3LPM, continue monitoring.
[2019-10-06] MEDS ORDERED: LACTULOSE 20Gm/30ML SOLN ONE (05:45)
[2019-10-06] MEDS: LACTULOSE 20Gm/30ML SOLN PR SCH ×2 (06:18→11:56)
[2019-10-06] MEDS: ACCU-CHEK COMFORT CURVE STRIP VI SCH ×4 (06:37→22:26)
[2019-10-06] MEDS: InsuLIN REG 1unit/0.01ml Soln (100units/ml) SC SCH ×4 (06:47→22:26)
--- NOTE | 2019-10-06 07:40 | NUR ---
Opening Shift Note Assumed care of patient, patient is sleeping, non response to verbal, moving his arms with pain or shaking or turning but not open his eyes. Reposition at this time, Lactulose given as order, still clamp at this time, will continue to monitor and care. No S/S of distress/SOB or pain noted, on O2 NC 3 LPM. Assessment done, still has rash all over his body. Hong's catheter drain to bag well, will keep NPO due to unable to swallow, will continue to monitor for BM and bleeding.
--- NOTE | 2019-10-06 08:00 | NUR ---
Perineal care provided.
--- NOTE | 2019-10-06 08:09 | NUR ---
Received a call from son, provided password to RN, updated condition. Families would like to talk to MD on the phone.
[2019-10-06] MEDS: SPIRONOLACTONE 25 MG TAB PO SCH (08:41)
[2019-10-06] MEDS: rifAXIMin 550 MG TAB PO SCH ×2 (08:42→21:02)
--- NOTE | 2019-10-06 09:22 | NUR ---
Rectal irrigation through rectal tube. Addendum: 10/06/19 at 0928 by BLAYNE KHALIL RN RN Due to stool with mushy pieces/semiliquid with dark brown color.
--- NOTE | 2019-10-06 09:50 | NUR ---
BT 99.9 F Axially, repositioning, ice pack applied. BP 108/66 mmHg. Patient only yawning moaning when repositioning, not open his eyes. Pupil right eyes 3 mm sluggish, left eye 3 mm react to light.
[2019-10-06] MEDS ORDERED: ASPirin 81 mg TAB PO SCH (10:00)
[2019-10-06] MEDS ORDERED: PANTOPRAZOLE 40 MG/10 ML VIAL INJ IV SCH (10:00)
--- NOTE | 2019-10-06 11:00 | NUR ---
WOUND CARE NOTE: IN TO SEE PATIENT AT THIS TIME PER WOUND CARE CONSULT REQUEST. PATIENT RECENTLY ADMITTED TO [facility] WITH DIAGNOSIS OF HEPATIC ENCEPHALOPATHY. CURRENT CANDELARIO SCORE IS 11. PATIENT WAS NOTED TO HAVE MULTIPLE ECCHYMOTIC AREAS TO BILATERAL UPPER EXTREMITIES, CHEST. WOUND PHOTOS TAKEN UPON ADMIT BY BEDSIDE NURSE. PATIENT IS NOTED TO HAVE RECTAL TUBE INDWELLING, WITH LIQUID BROWN STOOL NOTED WITHIN CATHETER AND BAG. SKIN IS INTACT, BONY PROMINENCES AREA BLANCHABLE. ECCHYMOSIS AREAS TO CHEST, BILATERAL UPPER EXTREMITIES ARE INTACT, NO NEED FOR DRESSINGS AT THIS TIME. BLE HAS HEMOSIDERIN STAIN NOTED TO SKIN FROM ANKLE TO KNEE. LEFT OPEN TO AIR. NO OTHER SKIN INTEGRITY ISSUES NOTED. RECOMMEND: FREQUENT TURN SCHEDULE Q 2 HOURS, PRN CONDITION PERMITS, WITH PRESSURE REDISTRIBUTION USING PILLOWS/WEDGES, SPECIALTY AIR MATTRESS, BID/PRN APPLICATION WITH SUREPREP BARRIER FILM TO PERIANAL/INTRAGLUTEAL SKIN, OPTIFOAM GENTLE SACRAL DRESSING PREVENTATIVE, DIETARY CONSULT, SKIN/WOUND CARE PLAN, CONTINUED MONITORING BY WOUND CARE TEAM. Addendum: 10/06/19 at 1423 by Gayatri Ocasio RN Amended: Links added.
--- NOTE | 2019-10-06 11:16 | NUR ---
Dr. Pate at the bedside, seen and examined patient at t his time. Received new orders, will carry out.
--- NOTE | 2019-10-06 12:02 | NUR ---
Received a call from Dr. Pate, received order for NG tube insertion, change Lactulose to 30 ml NG QID. Will continue to monitor and care.
--- NOTE | 2019-10-06 12:08 | NUR ---
I received a call from patient's Jessica asking if he can be transferred to the [facility]-she said he goes there all the time for appointments. I called the [facility] transfer center [phone] and spoke with Maira, he said patient does have a 10% service connection but that they do not have any beds available at this time. I relayed this information to patient's Jessica.
[2019-10-06] MEDS ORDERED: LACTULOSE 20Gm/30ML SOLN PO ONE (12:15)
--- NOTE | 2019-10-06 12:23 | NUR ---
Nasal gastric tube insertion NGT inserted per MD order. Placement verified by aspiration of stomach contents, auscultation and chest xray.
--- NOTE | 2019-10-06 14:03 | NUR ---
Nutrition Assessment Notes Please refer to link for full assessment notes. Est Energy needs: 3693-5391 kcals (17-20 kcal/kgBW) Est Protein needs: 73-80 gms/day (1.0-1.1 gm/kgBW) Will continue to monitor and reassess prn. Addendum: 10/06/19 at [address] Amended: Links added.
--- NOTE | 2019-10-06 14:53 | NUR ---
Dr. Ahumada at the bedside, seen patient at this time, informed MD that families would like to talk to MD.
--- NOTE | 2019-10-06 14:59 | NUR ---
Called and talked to Son (Severiano Sung) at [phone], informed him about Plan of care per Dr. Ahumada. His son still want Full code, they don't want Hospice and they still want to transfer to [facility].
--- NOTE | 2019-10-06 16:15 | NUR ---
Changed the bed and special mattress. Reposition as well.
[2019-10-06] MEDS: LACTULOSE 20Gm/30ML SOLN PO SCH ×2 (17:27→23:39)
[2019-10-06] MEDS: TAMSULOSIN HYDROCHLORIDE 0.4 MG CAP PO SCH (17:29)
[2019-10-06] MEDS: CARVEDILOL 3.125 MG TAB PO SCH (17:29)
--- NOTE | 2019-10-06 17:40 | NUR ---
Mouth care provided. NG tube no consent noted. No neuro sign changed, still not open his eyes, only moaning, moving hands when doing care or changed position.
--- NOTE | 2019-10-06 19:20 | NUR ---
OPENING NOTE RECEIVED REPORT FROM DAY SHIFT. PATIENT RESPONDING ONLY TO PAINFUL STIMULI. ON 3L NC. TURNED PATIENT FOR COMFORT. ST 105 ON DELIMBER OPERATOR BP 139/51. LEFT FOR 20G PATENT, INTACT. NGT PATENT. CASTANEDA PATENT. FOR MORE INFORMATION SEE INTERVENTIONS. MULTIPLE SKIN ISSUES. ALL FALL AND SAFELY PRECAUTIONS IN PLACE.
--- NOTE | 2019-10-06 20:03 | NUR ---
SON CALLED AND UPDATED ON PATIENT STATUS AFTER RECEIVING CORRECT PASSWORD, UPDATED SON ON PATIENT STATUS. ALL QUESTIONS ADDRESSED AT THIS TIME.
[2019-10-06] MEDS: ATORVASTATIN 20 MG TAB PO SCH (21:02)
[2019-10-06] MEDS: PANTOPRAZOLE 40 MG/10 ML VIAL INJ IV SCH (21:02)
[2019-10-07] VITALS: BP 108/67
[2019-10-07 03:19] LABS: Basophils # (auto) 0 10 ^3/uL (0-0.2); Basophils % (auto) 0.4 % (0.0-2.0); Eosinophils # (auto) 0.5 10 ^3/uL (0-0.8); Neutrophils # (auto) 4.7 10 ^3/uL (1.6-8.6); Nucleated Red Blood Cells % 0.1 %
[2019-10-07 03:22] LABS: Eosinophils % (auto) 6.7 % (0.0-7.0); Hemoglobin 12.7 g/dL (13.5-17.5); Lymphocytes % (auto) 13.8 % (10.0-50.0); Mean Corpuscular Hemoglobin 36.3 pg (28.0-32.0); Mean Corpuscular Hgb Conc. 34.4 g/dL (32.0-36.0); Mean Corpuscular Volume 105.6 fL (80.0-100.0); Monocytes # (auto) 1.2 10 ^3/uL (0-1.3); Neutrophils % (auto) 63.1 % (37.0-80.0); Platelet Count (auto) 61 10^3/uL (140-450); Red Cell Distribution Width 15.2 % (11.8-14.3); White Blood Cell 7.5 10^3/uL (4.4-10.8)
[2019-10-07 03:57] LABS: Albumin 2.8 g/dL (3.4-5.0); BUN/Creatinine Ratio 17.9; Calcium 9.6 mg/dL (8.5-10.1); Potassium 4.1 mmol/L (3.5-5.1)
[2019-10-07 04:00] VITALS: BP 105/61
[2019-10-07 04:06] LABS: Bilirubin, Total 2.5 mg/dL (0.2-1.0)
--- NOTE | 2019-10-07 05:08 | NUR ---
complete bed bath given patient tolerated well. skin reassessed and no new skin break down noted.
--- NOTE | 2019-10-07 06:05 | NUR ---
received phone call from son and mother after receiving correct password, updated both son and mother on patient status. all questions addressed at this time
[2019-10-07] MEDS: LACTULOSE 20Gm/30ML SOLN PO SCH ×3 (06:25→18:06)
[2019-10-07] MEDS: InsuLIN REG 1unit/0.01ml Soln (100units/ml) SC SCH ×4 (06:26→22:43)
[2019-10-07] MEDS: ACCU-CHEK COMFORT CURVE STRIP VI SCH ×4 (06:27→22:43)
[2019-10-07 07:40] VITALS: BP 119/47
--- NOTE | 2019-10-07 08:00 | NUR ---
OPENING SHIFT NOTE: Received report from NOC RNAnastacio. Assumed care of patient. Received patient lying on specialty bed, connected to bedside monitor with no s/s of distress noted. Patient in unresponsive, withdraws to painful stimuli. Pupils 2mm and sluggish bilaterally. Patient on O2 at 2L NC with sats 98%. NGT to right nare and placement verified by auscultation. PIV to left FA #20 that is intact and flushes well. Rectal tube in place and lo draining to gravity. Bed in lowest position, rails x3 up and call light within reach. Will continue to monitor q1hr/PRN.
--- NOTE | 2019-10-07 08:31 | NUR ---
Dr Sarah Ahumada at bedside. T/C to patient's son, Severiano, and updated on plan of care.
--- NOTE | 2019-10-07 09:00 | NUR ---
Partial linen change complete. Patient repositioned and noted to be leaking around rectal tube. Skin cleaned. No signs of skin breakdown.
[2019-10-07] MEDS: SPIRONOLACTONE 25 MG TAB PO SCH (10:00)
[2019-10-07] MEDS: CARVEDILOL 3.125 MG TAB PO SCH ×2 (10:05→18:00)
[2019-10-07] MEDS: PANTOPRAZOLE 40 MG/10 ML VIAL INJ IV SCH ×2 (10:05→22:44)
[2019-10-07] MEDS: SODIUM CHLORIDE 0.9% 1,000 ML IV SCH ×2 (10:05→19:00)
[2019-10-07] MEDS: rifAXIMin 550 MG TAB PO SCH ×2 (11:53→22:43)
--- NOTE | 2019-10-07 12:50 | NUR ---
T/C from patient's son, Severiano. Verified password and updated on patient status. Questions answered and informed family that patient has downgrade orders to telemetry and will call family when patient is transferred.
--- NOTE | 2019-10-07 15:04 | NUR ---
Report given to DAMON Sharpe. Patient to be transferred to 204 via bed on tele #[id number].
--- NOTE | 2019-10-07 15:15 | NUR ---
PT ARRIVED FROM [facility] VIA HOSPITAL BED, TO ROOM 204, RESTING ON SPECIALTY MATTRESS, RECTAL TUBE AND CASTANEDA CATHETER TO GRAVITY, PT CLOSE EYES, OPEN MOUTH, OXYGEN 3 NC, LARGE SOFT ABDOMEN, PT IS USING HIS ACCESSORY MUSCLES IN BREATHING, SKIN DISCOLORATION ON BOTH ARMS ARE RED WITH A DRY TEXTURE, HEAD OF BED ELEVATED FOR ASPIRATION PRECAUTIONS, DEPENDANT ON HIS CARE FOR HIS NEEDS, NEXT TO NURSING STATION, CALL LIGHT WITHIN REACH
--- NOTE | 2019-10-07 16:30 | NUR ---
PATIENT'S SON CALLED TO FOLLOW UP ON HIS DAD, A COMPLETE PICTURE GIVEN TO HIM OVER THE PHONE,VERBALIS UNDERSTANDING, VERY AWARE THAT HIS FATHER IS VERY ILL
[2019-10-07 16:41] VITALS: BP 91/94
[2019-10-07] MEDS: TAMSULOSIN HYDROCHLORIDE 0.4 MG CAP PO SCH (18:07)
--- NOTE | 2019-10-07 18:47 | NUR ---
PT CONTINUE STABLE, CONTINUE MONITORING
--- NOTE | 2019-10-07 19:30 | NUR ---
Opening Shift Note Assumed care of patient, awake and alert x0. No S/S of distress/SOB or pain. Hong in place, hung below bladder, draining yellow urine. Rectal tube is in place. NG tube to the right nare is clamped. IV to the LFA is patent and asymptomatic. Call light is within reach, fall precautions are in place, will continue to monitor for changes Q1hr and PRN.
--- NOTE | 2019-10-07 20:48 | NUR ---
PATIENT'S SON CALLED, PASSWORD PROVIDED, UPDATED ON PLAN OF CARE AND PATIENT'S STATUS. ALL QUESTIONS AND CONCERNS ANSWERED.
[2019-10-07 22:00] VITALS: BP 118/61
[2019-10-07] MEDS: ATORVASTATIN 20 MG TAB PO SCH (22:44)
[2019-10-08] MEDS: LACTULOSE 20Gm/30ML SOLN PO SCH ×7 (00:22→22:09)
[2019-10-08 05:00] VITALS: BP 139/63
[2019-10-08 05:03] LABS: Basophils # (auto) 0.1 10 ^3/uL (0-0.2); Basophils % (auto) 1.2 % (0.0-2.0); Eosinophils # (auto) 0.6 10 ^3/uL (0-0.8); Eosinophils % (auto) 9.3 % (0.0-7.0); Hematocrit 35.2 % (41.0-53.0); Hemoglobin 12.3 g/dL (13.5-17.5); Lymphocytes # (auto) 1.1 10 ^3/uL (0.4-5.4); Mean Corpuscular Hemoglobin 36.9 pg (28.0-32.0); Mean Corpuscular Hgb Conc. 34.8 g/dL (32.0-36.0); Mean Corpuscular Volume 106.2 fL (80.0-100.0); Monocytes # (auto) 0.8 10 ^3/uL (0-1.3); Monocytes % (auto) 13.2 % (0.0-12.0); Neutrophils # (auto) 3.8 10 ^3/uL (1.6-8.6); Neutrophils % (auto) 59.3 % (37.0-80.0); Platelet Count (auto) 65 10^3/uL (140-450); Red Blood Cells 3.32 10^6/uL (4.5-5.90); Red Cell Distribution Width 14.9 % (11.8-14.3); White Blood Cell 6.4 10^3/uL (4.4-10.8)
[2019-10-08 05:21] LABS: Albumin 2.7 g/dL (3.4-5.0); Calcium 9.1 mg/dL (8.5-10.1)
[2019-10-08 05:24] LABS: BUN/Creatinine Ratio 16.9; Bilirubin, Total 2.5 mg/dL (0.2-1.0); Total Protein 5.6 g/dL (6.4-8.2)
[2019-10-08] MEDS: SODIUM CHLORIDE 0.9% 1,000 ML IV SCH ×2 (05:42→15:38)
[2019-10-08] MEDS: ACCU-CHEK COMFORT CURVE STRIP VI SCH ×4 (06:39→23:45)
[2019-10-08] MEDS: InsuLIN REG 1unit/0.01ml Soln (100units/ml) SC SCH ×4 (06:43→23:47)
[2019-10-08] MEDS: CARVEDILOL 3.125 MG TAB PO SCH ×2 (07:50→17:42)
--- NOTE | 2019-10-08 08:00 | NUR ---
Opening Shift Note Assumed care of patient, awake open his eyes, unable to make need known. No S/S of distress/SOB or pain. Skin is warm and dry to touch. Turn patient q 2 hrs, patient tolerated well. Hong catheter in place, draining clear yellow urine. Flexi seal in place draining properly. Instructed on POC and to call for assist PRN, will continue to monitor for changes Q1hr and PRN.
[2019-10-08 08:45] VITALS: BP 108/65
[2019-10-08] MEDS: SPIRONOLACTONE 25 MG TAB PO SCH (09:00)
[2019-10-08] MEDS: rifAXIMin 550 MG TAB PO SCH ×2 (09:00→22:09)
[2019-10-08] MEDS: PANTOPRAZOLE 40 MG/10 ML VIAL INJ IV SCH ×2 (09:00→22:09)
[2019-10-08 12:43] VITALS: BP 115/61
--- NOTE | 2019-10-08 15:00 | NUR ---
Midline Placement: Patient educated on need for midline placement. All risks and benefits explained and all questions and concerns addresses prior to procedure. 18g/10cm midline inserted via L CEPHALIC vein using Ultrasound. Sterile technique utilized. Blood return obtained from SINGLE lumen and flushed easily with NS using proper technique. Midline secured with saline lock; biodisc and occlusive dressing applied. Primary RN notified. Midline lot # [id number].
--- NOTE | 2019-10-08 16:20 | NUR ---
Called dietary department regarding dietary consult for NG tube feeding, stated we have only one cleaner housekeeping and she will be back tomorrow.
[2019-10-08 16:55] VITALS: BP 115/61
[2019-10-08] MEDS: TAMSULOSIN HYDROCHLORIDE 0.4 MG CAP PO SCH (17:42)
--- NOTE | 2019-10-08 19:30 | NUR ---
Opening Shift Note Assumed care of patient, awake and alert x0. No S/S of distress/SOB or pain. Hong in place, hung below bladder, draining yellow urine. Flexi seal is in place and draining. Oxygen is infusing at 3 L/min via nasal cannula. NG tube to the right nare is clamped. Midline to the KHALIDA is patent and asymptomatic, dressing is C/D/I, running NS at 100 mls/hr. Call light is within reach, fall precautions are in place, will continue to monitor for changes Q1hr and PRN.
[2019-10-08 20:57] VITALS: BP 136/71
[2019-10-08] MEDS: ATORVASTATIN 20 MG TAB PO SCH (22:09)
--- NOTE | 2019-10-08 23:24 | NUR ---
Patient had a large black/brown, liquid BM. Patient cleaned with warm water and soap, total linen change done. Patient repositioned to the right side. Call light is within reach, bed alarm is on, will continue to monitor.
[2019-10-09] MEDS: SODIUM CHLORIDE 0.9% 1,000 ML IV SCH ×3 (01:00→21:00)
[2019-10-09] MEDS: LACTULOSE 20Gm/30ML SOLN PO SCH ×6 (02:02→21:59)
[2019-10-09 05:16] VITALS: BP 116/63
--- NOTE | 2019-10-09 05:45 | NUR ---
Patient had a large black/brown, liquid BM. Patient cleaned with warm water and soap, total linen change done. Call light is within reach, bed alarm is on, will continue to monitor.
[2019-10-09 06:15] LABS: Hemoglobin 11.5 g/dL (13.5-17.5); Lymphocytes # (auto) 1.4 10 ^3/uL (0.4-5.4); Mean Corpuscular Volume 107.7 fL (80.0-100.0); Monocytes # (auto) 0.8 10 ^3/uL (0-1.3); Nucleated Red Blood Cells % 0.1 %; Red Cell Distribution Width 15.1 % (11.8-14.3)
[2019-10-09 06:17] LABS: Basophils # (auto) 0.1 10 ^3/uL (0-0.2); Basophils % (auto) 0.8 % (0.0-2.0); Eosinophils # (auto) 0.6 10 ^3/uL (0-0.8); Eosinophils % (auto) 8.4 % (0.0-7.0); Hematocrit 33.6 % (41.0-53.0); Lymphocytes % (auto) 20.5 % (10.0-50.0); Mean Corpuscular Hemoglobin 36.9 pg (28.0-32.0); Mean Corpuscular Hgb Conc. 34.3 g/dL (32.0-36.0); Monocytes % (auto) 11.8 % (0.0-12.0); Neutrophils # (auto) 3.9 10 ^3/uL (1.6-8.6); Neutrophils % (auto) 58.5 % (37.0-80.0); Platelet Count (auto) 65 10^3/uL (140-450); Red Blood Cells 3.12 10^6/uL (4.5-5.90); White Blood Cell 6.7 10^3/uL (4.4-10.8)
[2019-10-09] MEDS: ACCU-CHEK COMFORT CURVE STRIP VI SCH ×4 (06:40→23:17)
[2019-10-09 06:43] LABS: Albumin 2.7 g/dL (3.4-5.0); Calcium 9.2 mg/dL (8.5-10.1)
[2019-10-09 06:48] LABS: BUN/Creatinine Ratio 16.4; Bilirubin, Total 2.3 mg/dL (0.2-1.0); Total Protein 5.6 g/dL (6.4-8.2)
[2019-10-09] MEDS: InsuLIN REG 1unit/0.01ml Soln (100units/ml) SC SCH ×4 (06:49→23:16)
[2019-10-09] MEDS: CARVEDILOL 3.125 MG TAB PO SCH ×2 (07:32→17:10)
[2019-10-09 09:00] VITALS: BP 139/74
[2019-10-09] MEDS: PANTOPRAZOLE 40 MG/10 ML VIAL INJ IV SCH ×2 (09:00→21:59)
[2019-10-09] MEDS: SPIRONOLACTONE 25 MG TAB PO SCH (09:00)
[2019-10-09] MEDS: rifAXIMin 550 MG TAB PO SCH ×2 (09:00→22:00)
--- NOTE | 2019-10-09 10:08 | NUR ---
assessment Patient is a 69 year old male. Per patients Jenelle prior to admission patient lived home with her and functioned with assistance. Patient has 02, cpap, wheelchair, hospital bed, shower chair and fww for home use. Patients PCP is Dr Samuel and Dr Bravo at the [facility]. I informed Jenelle they have a right to speak to a high school social science teacher regarding all care. I informed Jenelle they have a right to participate in any and all discharge planning. Jenelle is aware of visiting hours on the hospital floor. Patient does not have a POA and advanced directive. I have offered Jenelle information on POA and advanced directives. I informed Jenelle the advantages and benefits of having an Advanced Directive. I informed Jenelle patient has a ss consult for home health. Per Jenelle patient is on service with [employer]. MD order has been sent to [facility]. Waiting on reply back now. Addendum: 10/09/19 at 1012 by Lauren LEWIS Amended: Links added.
--- NOTE | 2019-10-09 10:10 | NUR ---
I called the [facility] [phone] and left message asking about bed availability.
--- NOTE | 2019-10-09 10:19 | NUR ---
Per Dr. Ahumada to remove Hong , Midline, IV and Flexi seal prior discharge. Keep only NG tube. Noted and carried it out.
--- NOTE | 2019-10-09 10:23 | NUR ---
Left a message to Leslee Fischer regarding Dr. Ahumada will d/c patient home today, cancel transfer order to [place].
--- NOTE | 2019-10-09 10:26 | NUR ---
Spoke to Anum LEWIS regarding if patient's insurance can be covered for a transportation. Per Anum is not covering. Will speak to patient' s son.
[2019-10-09 10:27] VITALS: BP 139/74
--- NOTE | 2019-10-09 10:43 | NUR ---
Paged Dr. Kya Pate regarding plan of care, noted and carried it out.
--- NOTE | 2019-10-09 11:54 | NUR ---
I called Jeremiah MARCANO regarding resuming home health with [facility], left message. Faxed home health order to Jeremiah MARCANO.
--- NOTE | 2019-10-09 13:00 | NUR ---
Spoke to patient's stated he wants patient to transfer to SNF, Dr. Ahumada notified.
[2019-10-09 13:09] VITALS: BP 120/65
--- NOTE | 2019-10-09 14:23 | NUR ---
Nutrition Followup Notes Pt wt is 98.2 kg Pt is NPO since 10/07/19 per RN doc. Recommend EN nutrition support of Jevity 1.2 @ 60 ml/hr goal rate as tolerated. Pt with no noted distress per RN doc. Will continue to monitor PO status, skin status, pertinent labs and weight trends. Will f/u in 2 to 3 days. Est Energy needs: 3158-1735 kcals (17-20 kcal/kgBW) Est Protein needs: 73-80 gms/day (1.0-1.1 gm/kgBW) Will continue to monitor and reassess prn. LABS: POC GLUC 233 H, AMMONIA 124 H, TP 5.6 L, ALB 2.7 L, NA 146 H, CL 114 H, BUN 22 H, CR 1.34 H, GFR 56 L GI: Last BM noted on 10/08/19 per RN doc. BS: 12 high risk, please refer to wound assessment report for full details PES: Problem 1) Increased nutrient needs r/t pt with no PO intake aeb pt currently NPO 2) Altered nutrition related lab values r/t current/chronic medical condition aeb hyperammonemia, hyperglyc, elev bili, hypoproteinemia, mod hypoalbuminemia Comments 1) Continue to closely monitor pt NPO status 2) If pt remains NPO for the next 48 hours, consider EN nutrition support of Jevity 1.2 @60 ml/hr goal rate 3) Gradually advance pt to oral Hepatic diet when medically feasible and as tolerated 4) Continue current plan of care
--- NOTE | 2019-10-09 14:42 | NUR ---
Dr. Rio Boland at bedside stated to continue lactulose and start feeding. Per Dr. Rio Boland patient cannot be d/c yet. Will notify Dr. Ahumaad.
--- NOTE | 2019-10-09 14:48 | NUR ---
Left a message to Dr. Ahumada. Awaiting to call back.
--- NOTE | 2019-10-09 14:51 | NUR ---
re-assessment Patient has a consult for SNF placement. I have sent MD order to [facility] rehab, and to [facility]. Waiting on reply back now. Leslee gearcase assembler is getting auth from insurance. Addendum: 10/09/19 at 1455 by Lauren Patel Amended: Links added.
--- NOTE | 2019-10-09 15:00 | NUR ---
DR. CRUZ AT BEDSIDE STATED HE RECEIVED A CALL FROM ([facility]) AND PATIENT GOT ACCEPTED, AWAITING FOR A BED.
[2019-10-09 17:00] VITALS: BP_SYST 114; BP_SYST 138; BP_DIAS 70; BP_DIAS 91
--- NOTE | 2019-10-09 17:00 | NUR ---
Received a call from Jeramy (Batch Roller Operator at [place]) stated need all patient's info. Noted and carried it out.
[2019-10-09] MEDS: TAMSULOSIN HYDROCHLORIDE 0.4 MG CAP PO SCH (17:10)
--- NOTE | 2019-10-09 17:20 | NUR ---
Faxed patient's info to [phone] . Per Jeramy RN needs to call for a follow up to [facility] Ext [phone]. Will endorse to shift mechanic.
--- NOTE | 2019-10-09 17:25 | NUR ---
Informed patient's son regarding [facility] patient's info and already faxed. Need to follow up tomorrow.
[2019-10-09] MEDS: Jevity 1.2 Cal/Fiber 1 Liter GT SCH (18:01)
--- NOTE | 2019-10-09 19:35 | NUR ---
assumed care, pt. confused, open and closed his eyes, repositioned pt. ngt feeding infusing well, not in distress.
[2019-10-09 21:34] VITALS: BP 122/68
[2019-10-09] MEDS: ATORVASTATIN 20 MG TAB PO SCH (22:00)
[2019-10-10] MEDS: LACTULOSE 20Gm/30ML SOLN PO SCH ×6 (01:36→21:37)
--- NOTE | 2019-10-10 02:51 | NUR ---
pt. moaning when primary rn was on break. the covering rn administered morphine.primary rn came back from break check patient, pt. v/s as follows bp- 106/61, p-113,r- 18, sats at 100%, not in distress
[2019-10-10] MEDS: SODIUM CHLORIDE 0.9% 1,000 ML IV SCH ×2 (04:32→14:37)
[2019-10-10 05:19] VITALS: BP 123/76
[2019-10-10] MEDS: ACCU-CHEK COMFORT CURVE STRIP VI SCH ×4 (06:16→21:37)
[2019-10-10] MEDS: InsuLIN REG 1unit/0.01ml Soln (100units/ml) SC SCH ×4 (06:16→21:37)
[2019-10-10 06:22] LABS: Basophils # (auto) 0.1 10 ^3/uL (0-0.2); Basophils % (auto) 0.8 % (0.0-2.0); Eosinophils # (auto) 0.5 10 ^3/uL (0-0.8); Eosinophils % (auto) 7.4 % (0.0-7.0); Hematocrit 33.4 % (41.0-53.0); Hemoglobin 11.3 g/dL (13.5-17.5); Lymphocytes % (auto) 16.1 % (10.0-50.0); Mean Corpuscular Hemoglobin 37.1 pg (28.0-32.0); Mean Corpuscular Hgb Conc. 33.7 g/dL (32.0-36.0); Mean Corpuscular Volume 110.1 fL (80.0-100.0); Monocytes # (auto) 0.7 10 ^3/uL (0-1.3); Monocytes % (auto) 11.2 % (0.0-12.0); Neutrophils % (auto) 64.5 % (37.0-80.0); Nucleated Red Blood Cells % 0.1 %; Platelet Count (auto) 62 10^3/uL (140-450); Red Blood Cells 3.03 10^6/uL (4.5-5.90); Red Cell Distribution Width 16.1 % (11.8-14.3); White Blood Cell 6.3 10^3/uL (4.4-10.8)
[2019-10-10 06:43] LABS: Albumin 2.6 g/dL (3.4-5.0); BUN/Creatinine Ratio 15.7; Bilirubin, Total 1.7 mg/dL (0.2-1.0); Calcium 8.8 mg/dL (8.5-10.1); Potassium 3.7 mmol/L (3.5-5.1); Total Protein 5.6 g/dL (6.4-8.2)
--- NOTE | 2019-10-10 07:30 | NUR ---
Report received. Patient lying in bed. NG noted with tube feeding. Hong in place, rectal tube in place. Patient opens eyes to his name but is not able to speak. No S/S distress. Will continue to monitor.
[2019-10-10] MEDS: Jevity 1.2 Cal/Fiber 1 Liter GT SCH (08:00)
[2019-10-10] MEDS: PANTOPRAZOLE 40 MG/10 ML VIAL INJ IV SCH ×2 (08:48→21:37)
[2019-10-10] MEDS: SPIRONOLACTONE 25 MG TAB PO SCH (08:48)
[2019-10-10] MEDS: rifAXIMin 550 MG TAB PO SCH ×2 (08:48→21:37)
[2019-10-10] MEDS: CARVEDILOL 3.125 MG TAB PO SCH ×2 (08:49→17:47)
[2019-10-10 09:00] VITALS: BP 140/54
--- NOTE | 2019-10-10 09:36 | NUR ---
Page placed to returned case inspector on-call. Dr. Bang Ahumada wants patient [facility] to [facility].
--- NOTE | 2019-10-10 09:38 | NUR ---
Return call from Lauren, family preservation caseworker. She states she will contact [facility] and call back when she has heard from them.
--- NOTE | 2019-10-10 12:15 | NUR ---
Patient's chart faxed to [facility]: [phone].
[2019-10-10 13:00] VITALS: BP 134/61
--- NOTE | 2019-10-10 13:42 | NUR ---
Page to Lauren, rifle case repairer, re update on transfer to [facility].
--- NOTE | 2019-10-10 13:47 | NUR ---
Return call from Lauren, spring encaser. She states the transfer will not happen until Saturday. Will inform Dr. Bang Ahumada.
--- NOTE | 2019-10-10 13:51 | NUR ---
Page placed to Dr. Bang Ahumada.
--- NOTE | 2019-10-10 14:00 | NUR ---
Dr. Bang Ahumada informed that patient transfer will be Saturday. Will continue to monitor.
--- NOTE | 2019-10-10 14:12 | NUR ---
Patient's son updated on transfer to [facility].
--- NOTE | 2019-10-10 15:00 | NUR ---
Patient more awake, requesting water. Patient is able to drink water thru a straw without distress. Will continue to monitor.
[2019-10-10 17:00] VITALS: BP 124/60
[2019-10-10] MEDS: TAMSULOSIN HYDROCHLORIDE 0.4 MG CAP PO SCH (17:46)
--- NOTE | 2019-10-10 19:25 | NUR ---
Opening Shift Note Received report from ang Sosa RN. Assumed care of patient with eyes closed and lethargic but opens eyes with name. No S/S of distress/SOB or pain. Patient is on specialty bed in a fowlers position and continues on NG tube running Jevity 1.2 at 60ml/hour. Instructed on POC and to call for assist PRN, will continue to monitor for changes Q1hr and PRN.
[2019-10-10] MEDS: ATORVASTATIN 20 MG TAB PO SCH (21:37)
[2019-10-10 22:00] VITALS: BP 131/61
--- NOTE | 2019-10-10 23:47 | NUR ---
PATIENT WOKE UP AND STARTED TO CALL FOR HIS SANTOSH AND TOLD NURSE TO CALL 911. PATIENT IS ALSO REQUESTING TO HAVE A DRINK OF WATER. GIVEN SOME WATER THROUGH A STRAW. WILL MONITOR.
--- NOTE | 2019-10-10 23:50 | NUR ---
PATIENT IS C/O PAIN TO BACK 11/24. WILL PAGE HOSPITALIST.
[2019-10-11] MEDS ORDERED: HYDROcodone-ACET 10/325MG TAB PO PRN
--- NOTE | 2019-10-11 00:03 | NUR ---
PAGED HOSPITALIST AND RECEIVED AN ORDER FOR MECHANIC FALLS . ORDER NOTED
--- NOTE | 2019-10-11 00:30 | NUR ---
PATIENT WENT BACK TO SLEEP WITH EYES CLOSED. NO DISTRESS NOTED SATURATING AT 98% ON 2LNC.
[2019-10-11] MEDS: LACTULOSE 20Gm/30ML SOLN PO SCH ×6 (03:05→22:31)
[2019-10-11] MEDS: SODIUM CHLORIDE 0.9% 1,000 ML IV SCH ×3 (03:06→22:32)
[2019-10-11 05:50] VITALS: BP 135/61
[2019-10-11] MEDS: InsuLIN REG 1unit/0.01ml Soln (100units/ml) SC SCH ×4 (06:22→22:32)
[2019-10-11] MEDS: ACCU-CHEK COMFORT CURVE STRIP VI SCH ×4 (06:25→22:00)
--- NOTE | 2019-10-11 06:25 | NUR ---
SPOKE TO CHARGE NURSE THAT PATIENT MAY NEED A SITTER R/T PATIENT IS AWAKE AND ANXIOUS AND CONTINUES TO YELL LONG ALVES.
--- NOTE | 2019-10-11 06:30 | NUR ---
PATIENT IS AWAKE AND ALERT, PULLED HIS NG TUBE OUT AND STATES "I JUST WANT SOME WATER". GIVEN A CUP OF WATER. AT THIS TIME PATIENT IS ANXIOUS AND CONFUSED AND WANTS TO CALL THE AMBULANCE.. PATIENT HAS BEEN YELLING FOR A DRINK OF WATER. GIVEN ONE MORE CUP AND DRANK IT WITH A STRAW WITHOUT ANY DISTRESS. PATIENT SWALLOWS WELL. PATIENT NEVER STOPS YELLING CALLING LONG, LONG, LONG.
--- NOTE | 2019-10-11 06:35 | NUR ---
SPOKE WITH PATIENT'S SON MERISSA AND UPDATE HIM ON PATIENT'S STATUS.
--- NOTE | 2019-10-11 06:53 | NUR ---
PATIENT CONTINUES TO LONG SOLIS.
--- NOTE | 2019-10-11 07:24 | NUR ---
Patient awake, confused, yelling. States he wants to go home. Reminded patient that he is in the hospital and his family is aware. Dr. Ahumada informed. Received order for full liquid diet. Will continue to monitor.
--- NOTE | 2019-10-11 08:21 | NUR ---
Patient ate 100% full liquid tray. No difficulty swallowing noted. Dr. Bang Ahumada in to see patient as hospitalist.
[2019-10-11 09:00] VITALS: BP 123/61
[2019-10-11] MEDS: rifAXIMin 550 MG TAB PO SCH ×2 (09:45→22:31)
[2019-10-11] MEDS: CARVEDILOL 3.125 MG TAB PO SCH ×2 (09:45→17:48)
[2019-10-11] MEDS: PANTOPRAZOLE 40 MG/10 ML VIAL INJ IV SCH ×2 (09:46→22:30)
[2019-10-11] MEDS: SPIRONOLACTONE 25 MG TAB PO SCH (09:46)
--- NOTE | 2019-10-11 10:52 | NUR ---
Rectal tube found out. Dr. Bang Vela informed. OK to leave out. Will continue to monitor.
[2019-10-11 13:00] VITALS: BP 126/66
--- NOTE | 2019-10-11 13:25 | NUR ---
Patient incontinent of stool. Patient cleaned and repositioned. Will continue monitor.
[2019-10-11 17:11] VITALS: BP 111/57
[2019-10-11] MEDS: TAMSULOSIN HYDROCHLORIDE 0.4 MG CAP PO SCH (17:47)
--- NOTE | 2019-10-11 19:15 | NUR ---
Opening Shift Note Received report from ang Sosa RN. Assumed care of patient, awake and alert and yells "LONG". When you go into room patient has No S/S of distress/SOB or pain and does not need anything except that patient states that he wants to go home. Patient is confused. Instructed on POC and to call for assist PRN, will continue to monitor for changes Q1hr and PRN. Bed placed in lowest position, bed alarm turned on and call light within reach.
[2019-10-11 22:00] VITALS: BP 124/61
[2019-10-11] MEDS: ATORVASTATIN 20 MG TAB PO SCH (22:30)
--- NOTE | 2019-10-12 00:18 | NUR ---
NORCO GIVEN FOR BACK PAIN AND NECK PAIN. WILL MONITOR.
[2019-10-12] MEDS: LACTULOSE 20Gm/30ML SOLN PO SCH ×5 (02:30→18:19)
[2019-10-12 05:00] VITALS: BP 126/70
[2019-10-12] MEDS: ACCU-CHEK COMFORT CURVE STRIP VI SCH ×4 (06:28→22:01)
[2019-10-12 06:46] LABS: Basophils # (auto) 0 10 ^3/uL (0-0.2); Eosinophils # (auto) 0.4 10 ^3/uL (0-0.8); Hemoglobin 9.6 g/dL (13.5-17.5); Lymphocytes # (auto) 0.8 10 ^3/uL (0.4-5.4); Neutrophils # (auto) 1.9 10 ^3/uL (1.6-8.6); Nucleated Red Blood Cells % 0.1 %; Platelet Count (auto) 35 10^3/uL (140-450)
[2019-10-12] MEDS: InsuLIN REG 1unit/0.01ml Soln (100units/ml) SC SCH ×4 (06:46→22:03)
[2019-10-12 06:48] LABS: Basophils % (auto) 0.8 % (0.0-2.0); Eosinophils % (auto) 10.6 % (0.0-7.0); Hematocrit 27.6 % (41.0-53.0); Lymphocytes % (auto) 23.6 % (10.0-50.0); Mean Corpuscular Hemoglobin 37.6 pg (28.0-32.0); Mean Corpuscular Hgb Conc. 34.8 g/dL (32.0-36.0); Mean Corpuscular Volume 108.1 fL (80.0-100.0); Monocytes # (auto) 0.3 10 ^3/uL (0-1.3); Monocytes % (auto) 9.3 % (0.0-12.0); Neutrophils % (auto) 55.7 % (37.0-80.0); Red Blood Cells 2.55 10^6/uL (4.5-5.90); Red Cell Distribution Width 15.4 % (11.8-14.3); White Blood Cell 3.5 10^3/uL (4.4-10.8)
[2019-10-12 07:01] LABS: Albumin 2.3 g/dL (3.4-5.0); Calcium 8.2 mg/dL (8.5-10.1)
[2019-10-12 07:04] LABS: BUN/Creatinine Ratio 14.5; Bilirubin, Total 1.7 mg/dL (0.2-1.0)
--- NOTE | 2019-10-12 07:30 | NUR ---
Patient is resting in bed with alert and awake and oriented to self and place. No distress noted and patient denies pain.
--- NOTE | 2019-10-12 07:30 | NUR ---
Opening Shift Note Assuming care of patient at this time. Patient is awake, alert, and oriented x3. Patient denies pain. Patient shows no signs or symptoms of distress or shortness of breath. Bed is locked and lowered with side rails up x2. Instructed patient on the plan of care for today and to call for assistance as needed. Call light within reach. Will continue to round hourly and as needed.
--- NOTE | 2019-10-12 08:58 | NUR ---
Call to Case management Call to Leslee in case management regarding patient's transfer. Awaiting callback.
[2019-10-12 09:00] VITALS: BP 125/65
[2019-10-12] MEDS: SODIUM CHLORIDE 0.9% 1,000 ML IV SCH ×2 (09:00→19:00)
[2019-10-12] MEDS: rifAXIMin 550 MG TAB PO SCH ×2 (09:08→22:00)
[2019-10-12] MEDS: PANTOPRAZOLE 40 MG/10 ML VIAL INJ IV SCH (09:08)
[2019-10-12] MEDS: CARVEDILOL 3.125 MG TAB PO SCH ×2 (09:09→18:19)
[2019-10-12] MEDS: SPIRONOLACTONE 25 MG TAB PO SCH (09:09)
--- NOTE | 2019-10-12 09:19 | NUR ---
I called [facility] [phone] regarding the status of the transfer request. She stated they never received a transfer request-and last clinical information they received was on 10/08. I faxed transfer order and updated clinical information to [facility] [phone].
[2019-10-12 13:00] VITALS: BP 100/53
--- NOTE | 2019-10-12 14:14 | NUR ---
I called the [facility] center [phone] and spoke with Antony, he did receive the updated clinical information that was faxed today, they have no beds available, they also can not accept patient at this time because their MD does not see a need for continued acute care.
--- NOTE | 2019-10-12 15:28 | NUR ---
I spoke with patient's son Severiano Easley Jr regarding the transfer request to the [facility]. I let him know that they had no beds available and also that they were not willing to accept him as an inpatient transfer at this time due to them not seeing a need for further inpatient hospitalization. Patient's son is going to call the [place] [facility] himself.
[2019-10-12 17:00] VITALS: BP 109/60
[2019-10-12] MEDS: TAMSULOSIN HYDROCHLORIDE 0.4 MG CAP PO SCH (18:20)
--- NOTE | 2019-10-12 19:20 | NUR ---
Opening Shift Note Assumed care of patient, awake and alert. No S/S of distress/SOB or pain. Instructed on POC and to call for assist PRN. Call light in reach, bed in lowest position, wheels locked. Will continue to monitor for changes Q1hr and PRN.
--- NOTE | 2019-10-12 19:20 | NUR ---
Closing Shift Note Patient resting in bed. No distress noted. Report given. Will endorse care to the recruitment internship RN.
[2019-10-12 22:00] VITALS: BP 131/57
[2019-10-12] MEDS: ATORVASTATIN 20 MG TAB PO SCH (22:00)
--- NOTE | 2019-10-12 22:00 | NUR ---
IV D/C'd Left upper arm peripheral IV discontinued due to patient has left upper arm midline inserted on 10/08/2019, no need for peripheral line. Removed with cannula intact, pressure dressing applied. Pt tolerated well.
[2019-10-13 05:00] VITALS: BP 113/55
[2019-10-13] MEDS: ACCU-CHEK COMFORT CURVE STRIP VI SCH ×4 (06:15→23:46)
[2019-10-13] MEDS: SODIUM CHLORIDE 0.9% 1,000 ML IV SCH ×2 (06:15→15:00)
[2019-10-13] MEDS: InsuLIN REG 1unit/0.01ml Soln (100units/ml) SC SCH ×4 (06:16→22:00)
--- NOTE | 2019-10-13 06:16 | NUR ---
Accucheck Insulin held due to patient not having an appetite. Blood sugar result was 148.
--- NOTE | 2019-10-13 07:05 | NUR ---
Closing note Care endorsed to day shift RN. Pt no s/s of distress noted. Call light in reach, bed in lowest position, wheels locked.
--- NOTE | 2019-10-13 07:45 | NUR ---
Opening Shift Note Assumed care of patient, awake and alert. No S/S of distress/SOB or pain. Instructed on POC and to call for assist PRN, will continue to monitor for changes Q1hr and PRN. Bed locked in lowest position with two side rails up and call light in reach.
[2019-10-13 09:00] VITALS: BP 127/55
--- NOTE | 2019-10-13 09:00 | NUR ---
DR ANTHONY CRUZ SPOKE TO SON VIA TELEPHONE DISCUSSED THE PLAN OF CARE AND DISCHARGE.
[2019-10-13] MEDS: LACTULOSE 20Gm/30ML SOLN PO SCH ×2 (09:52→23:44)
[2019-10-13] MEDS: rifAXIMin 550 MG TAB PO SCH ×2 (09:52→23:45)
[2019-10-13] MEDS: SPIRONOLACTONE 25 MG TAB PO SCH (09:52)
[2019-10-13] MEDS: PANTOPRAZOLE 40 MG TAB PO SCH (09:53)
[2019-10-13] MEDS: CARVEDILOL 3.125 MG TAB PO SCH ×2 (09:54→17:43)
--- NOTE | 2019-10-13 10:28 | NUR ---
I called [facility] and spoke with Christine-she said transportation request would have to go through [employer]-I called [employer] [place] [facility] [phone] and spoke with Satnam-I told him we would call back after PT assessed patient for wheelchair versus gurney transport home.
--- NOTE | 2019-10-13 12:00 | NUR ---
CASTANEDA REMOVED PATIENT TOLERATED WELL.
[2019-10-13 13:00] VITALS: BP 115/75
--- NOTE | 2019-10-13 14:28 | NUR ---
I called [facility] (transportation service for [facility])[phone] and spoke with Theresa to request a 1700 gurney transport sisal picker time (with oxygen). Theresa will give me a call back to confirm the sisal picker time.
--- NOTE | 2019-10-13 15:54 | NUR ---
I called [facility] ([employer])[phone] and spoke with Hans, he said they are still working on the gurrandolph transport arrangements for this patient.
--- NOTE | 2019-10-13 16:32 | NUR ---
I received a call from [facility] [phone]-per Theresa chicken picker time is 1999-I made nurse Angelika aware.
--- NOTE | 2019-10-13 16:53 | NUR ---
DISCHARGE WOUND PHOTOS TAKEN.
[2019-10-13 17:03] VITALS: BP 121/59
--- NOTE | 2019-10-13 17:17 | NUR ---
RECEIVED A CALL FROM ROSSANA WITH [facility]. PER ROSSANA THEY CANNOT PICK PATIENT UP PATIENT TONIGHT. I CALLED [employer] [facility] AND NOTIFIED.
[2019-10-13] MEDS: TAMSULOSIN HYDROCHLORIDE 0.4 MG CAP PO SCH (17:44)
--- NOTE | 2019-10-13 18:22 | NUR ---
RECEIVED A CALL FROM [facility] PATIENT CANNOT BE PICKED UP TODAY THERE IS NO AUTHORIZATION NUMBER FOR ANOTHER TRANSPORT SERVICE SUCH [facility]. IF ANYTHING SHOULD CHANGE [facility] WILL CALL BACK. WILL NOTIFY FAMILY.
--- NOTE | 2019-10-13 19:41 | NUR ---
RECEIVED PT FROM DAY RN POC REVIEWED
--- NOTE | 2019-10-13 20:35 | NUR ---
partial bed bath and linen change pt incontinent of urine
[2019-10-13 22:00] VITALS: BP 105/73
--- NOTE | 2019-10-13 22:50 | NUR ---
resting with eyes closed no s/s of distress
[2019-10-13] MEDS: ATORVASTATIN 20 MG TAB PO SCH (23:45)
[2019-10-14] MEDS: SODIUM CHLORIDE 0.9% 1,000 ML IV SCH ×2 (01:46→10:59)
[2019-10-14 05:33] VITALS: BP 110/60
[2019-10-14] MEDS: InsuLIN REG 1unit/0.01ml Soln (100units/ml) SC SCH ×2 (05:41→11:30)
[2019-10-14] MEDS: ACCU-CHEK COMFORT CURVE STRIP VI SCH ×2 (06:02→11:30)
--- NOTE | 2019-10-14 06:51 | NUR ---
report given to kylah ramos reviewed Signed: 10/14/19 at 0652 by Elida Martinez RN
--- NOTE | 2019-10-14 07:34 | NUR ---
REPORT RECEIVED, WILL [facility] AFTER 0800 ONCE THEY ARRIVE TO SCHEDULE NEW BOARD MIXER TENDER TIME FOR THIS MORNING.
[2019-10-14] MEDS: CARVEDILOL 3.125 MG TAB PO SCH (08:00)
--- NOTE | 2019-10-14 08:31 | NUR ---
I called [facility] [phone] and spoke with Hans regarding case picker time to transport patient home today-I let him know that patient needs gurney transport with oxygen-he said someone will call me back within 30 minutes to confirm case picker time. I relayed this information to nurse Carney.
[2019-10-14 09:00] VITALS: BP 99/52
--- NOTE | 2019-10-14 09:45 | NUR ---
I called [facility] (no return call from them) [phone] and spoke with Allan, he said they are still working on this case and that someone will give me a call back.
[2019-10-14] MEDS: rifAXIMin 550 MG TAB PO SCH (10:58)
[2019-10-14] MEDS: PANTOPRAZOLE 40 MG TAB PO SCH (10:59)
[2019-10-14] MEDS: SPIRONOLACTONE 25 MG TAB PO SCH (10:59)
[2019-10-14] MEDS: LACTULOSE 20Gm/30ML SOLN PO SCH (10:59)
[2019-10-14 11:39] VITALS: BP 99/52
[2019-10-14 12:00] VITALS: BP 93/73
--- NOTE | 2019-10-14 12:25 | NUR ---
Discharge instructions given as ordered. Encourage to follow up with PMD as instructed. All questions and concerns addressed. Patient verbalized understanding. Medication reconciliation form completed and copy given to patient. No Home medications held in Pharmacy returned to patient, and no needed vaccines given. IV midline removed with catheter intact, pressure dressing applied. Telemetry unit returned to ICU. Patient taken to vehicle via wheelchair with all personal belongings, with [facility] accompanied by staff and transportation member. No distress noted at time of departure.
== END 2019-10-14 12:30 | disposition home or self-care (01) | DRG 441 ==
LOC: ER 11:47 → EDBD 11:47 → TELE 11:48 → DOU IN ICU 15:44 → TELE-CENTR 10-07 15:12
PROVIDERS: ADMIT Nurse Practitioner Acute Care; ATTEND Family Medicine
DX: K72.00 Acute and subacute hepatic failure without coma (principal); E43 Unspecified severe protein-calorie malnutrition; N17.0 Acute kidney failure with tubular necrosis; K76.6 Portal hypertension; E72.4 Disorders of ornithine metabolism; K92.1 Melena; I13.0 Hypertensive heart and chronic kidney disease with heart failure and stage 1 through stage 4 chronic kidney disease, or unspecified chronic kidney disease; Z68.41 Body mass index [BMI] 40.0-44.9, adult; D61.818 Other pancytopenia; N18.3 Chronic kidney disease, stage 3 (moderate); D63.8 Anemia in other chronic diseases classified elsewhere; D69.6 Thrombocytopenia, unspecified; E66.9 Obesity, unspecified; I25.10 Atherosclerotic heart disease of native coronary artery without angina pectoris; I50.9 Heart failure, unspecified; E86.0 Dehydration; E11.22 Type 2 diabetes mellitus with diabetic chronic kidney disease; M19.90 Unspecified osteoarthritis, unspecified site; J44.9 Chronic obstructive pulmonary disease, unspecified; J45.909 Unspecified asthma, uncomplicated; K74.60 Unspecified cirrhosis of liver; E11.65 Type 2 diabetes mellitus with hyperglycemia; E78.00 Pure hypercholesterolemia, unspecified; N40.0 Benign prostatic hyperplasia without lower urinary tract symptoms; F32.9 Major depressive disorder, single episode, unspecified; E11.40 Type 2 diabetes mellitus with diabetic neuropathy, unspecified; Z86.73 Personal history of transient ischemic attack (TIA), and cerebral infarction without residual deficits; Z79.899 Other long term (current) drug therapy; Z80.0 Family history of malignant neoplasm of digestive organs; Z83.3 Family history of diabetes mellitus; Z82.3 Family history of stroke; Z82.49 Family history of ischemic heart disease and other diseases of the circulatory system; Z83.42 Family history of familial hypercholesterolemia; Z11.59 Encounter for screening for other viral diseases
CPT/HCPCS: 36415; 51702; 70450; 71045; 74176; 80053; 80307; 81001; 82140; 82270; 82962; 83690; 84484; 85014; 85018; 85025; 85610; 85730; 93005; 96360; 97163; 99291; C9113; G0378; J1815

== ENCOUNTER 2020-03-14 13:20 | Inpatient (IN) | payer OTHER, MEDICAID ==
[~2020-03-14] VITALS: Ht 167.6 cm; Wt 110.9 kg
[2020-03-14] MEDS ORDERED: FUROSEMIDE 40 MG/4 ML VIAL IV ONE (13:45)
[2020-03-14] MEDS ORDERED: SODIUM CHLORIDE 0.9% 1,000 ML IV ONE (13:45)
[2020-03-14 14:21] LABS: Basophils # (auto) 0 10 ^3/uL (0-0.2); Eosinophils # (auto) 0.2 10 ^3/uL (0-0.8); Lymphocytes % (auto) 21.5 % (10.0-50.0); Monocytes # (auto) 0.6 10 ^3/uL (0-1.3); Neutrophils # (auto) 2.8 10 ^3/uL (1.6-8.6); Neutrophils % (auto) 62.2 % (37.0-80.0); Platelet Count (auto) 79 10^3/uL (140-450); White Blood Cell 4.6 10^3/uL (4.4-10.8)
[2020-03-14 14:23] LABS: Basophils % (auto) 0.3 % (0.0-2.0); Eosinophils % (auto) 3.8 % (0.0-7.0); Hematocrit 35.5 % (41.0-53.0); Hemoglobin 12.2 g/dL (13.5-17.5); Mean Corpuscular Hemoglobin 35.8 pg (28.0-32.0); Mean Corpuscular Hgb Conc. 34.5 g/dL (32.0-36.0); Mean Corpuscular Volume 103.7 fL (80.0-100.0); Monocytes % (auto) 12.2 % (0.0-12.0); Nucleated Red Blood Cells % 0.2 %; Red Blood Cells 3.42 10^6/uL (4.5-5.90); Red Cell Distribution Width 14.5 % (11.8-14.3)
[2020-03-14 14:39] LABS: Albumin 3.2 g/dL (3.4-5.0); Anion Gap 6 (5-15); Blood Alcohol < 3.0 mg/dL (0-5); Blood Urea Nitrogen 27 mg/dL (7-18); Calcium 9.1 mg/dL (8.5-10.1); Carbon Dioxide 28 mmol/L (21-32); Chloride 103 mmol/L (98-107); Glucose 153 mg/dL (74-106); Potassium 4.3 mmol/L (3.5-5.1); Sodium 137 mmol/L (136-145)
[2020-03-14 14:40] LABS: Lactic Acid w/Reflex 2.4 mmol/L (0.4-2.0)
[2020-03-14 14:44] LABS: Alanine Aminotransferase 38 U/L (16-61); Alkaline Phosphatase 185 U/L (45-117); Aspartate Aminotransferase 45 U/L (15-37); BUN/Creatinine Ratio 19.1; Bilirubin, Total 2.4 mg/dL (0.2-1.0); GFR African American 64 mL/min; GFR Non-African American 53 mL/min; Total Protein 5.9 g/dL (6.4-8.2)
[2020-03-14] MEDS ORDERED: DEXTROSE (50%) 50ML SYRG IV PRN (15:00)
[2020-03-14] MEDS ORDERED: NITROGLYCERIN 0.4 MG SL TAB SL PRN (15:00)
[2020-03-14] MEDS ORDERED: MORPHINE SULF INJ 2 MG/ML SYRINGE 1ML IV PRN (15:00)
[2020-03-14] MEDS: InsuLIN REG 1unit/0.01ml Soln (100units/ml) SC SCH ×2 (17:08→22:49)
[2020-03-14] MEDS: ACCU-CHEK COMFORT CURVE STRIP VI SCH ×2 (17:13→22:48)
[2020-03-14] MEDS ORDERED: TAMSULOSIN HYDROCHLORIDE 0.4 MG CAP PO SCH (18:00)
[2020-03-14] MEDS: LEVALBUTEROL HCL 1.25 MG/3 ML NEB NEB SCH (18:55)
[2020-03-14] MEDS: IPRATROPIUM BROM 0.5 MG/2.5ML INH SOL NEB SCH (18:55)
[2020-03-14 20:01] LABS: Urine Bacteria NONE SEEN /hpf (None Seen); Urine Blood 1+ /uL (Negative); Urine Hyaline Cast FEW /lpf (0 - 2); Urine Specific Gravity 1.014 (1.001-1.035); Urine WBC 2 /hpf (0 - 3)
--- NOTE | 2020-03-14 21:40 | NUR ---
Telemetry admit from ER JOSE DELGADO,EPIFANIO Rashid admitted to Telemetry unit after SBAR received. Patient oriented to Grace Sanderson, primary RN, unit, room, bed, and unit policies regarding patient care and visiting hours. Patient now on continuous telemetry monitoring, tele box # [id number] and telemetry reading on arrival to unit is sinus rhythm. Patient placed on bedside oxygen, weighed by bed scale and encouraged to call if they need something. All questions and concerns addressed, patient verbalized understanding.
[2020-03-14 22:00] VITALS: BP 117/66
[2020-03-14] MEDS: CARVEDILOL 3.125 MG TAB PO SCH (22:48)
[2020-03-14 23:55] VITALS: BP 117/66
[2020-03-15] MEDS: IPRATROPIUM BROM 0.5 MG/2.5ML INH SOL NEB SCH ×3 (01:07→12:14)
[2020-03-15] MEDS: LEVALBUTEROL HCL 1.25 MG/3 ML NEB NEB SCH ×3 (01:07→12:14)
[2020-03-15 01:49] VITALS: BP 117/66
[2020-03-15] MEDS: LACTULOSE 20Gm/30ML SOLN PO SCH ×4 (01:55→19:34)
[2020-03-15] MEDS ORDERED: INSUINJ18 SC (02:09)
[2020-03-15] MEDS ORDERED: FURO40TA4 PO (02:09)
[2020-03-15] MEDS ORDERED: HYDR-531 PO (02:09)
[2020-03-15 05:00] VITALS: BP 104/53
[2020-03-15 05:45] LABS: Basophils # (auto) 0 10 ^3/uL (0-0.2); Basophils % (auto) 0.5 % (0.0-2.0); Eosinophils # (auto) 0.2 10 ^3/uL (0-0.8); Lymphocytes # (auto) 0.8 10 ^3/uL (0.4-5.4); Monocytes # (auto) 0.5 10 ^3/uL (0-1.3); Platelet Count (auto) 68 10^3/uL (140-450)
[2020-03-15 05:49] LABS: Eosinophils % (auto) 4.9 % (0.0-7.0); Hematocrit 31.8 % (41.0-53.0); Hemoglobin 11.1 g/dL (13.5-17.5); Lymphocytes % (auto) 23.1 % (10.0-50.0); Mean Corpuscular Hemoglobin 36.4 pg (28.0-32.0); Mean Corpuscular Hgb Conc. 34.9 g/dL (32.0-36.0); Mean Corpuscular Volume 104.5 fL (80.0-100.0); Neutrophils % (auto) 58.5 % (37.0-80.0); Red Blood Cells 3.04 10^6/uL (4.5-5.90); Red Cell Distribution Width 14.8 % (11.8-14.3); White Blood Cell 3.5 10^3/uL (4.4-10.8)
[2020-03-15 06:12] LABS: Potassium 3.9 mmol/L (3.5-5.1)
[2020-03-15 06:22] LABS: Albumin 2.9 g/dL (3.4-5.0); BUN/Creatinine Ratio 22.4; Bilirubin, Total 2.6 mg/dL (0.2-1.0); Calcium 9.3 mg/dL (8.5-10.1); Total Protein 5.2 g/dL (6.4-8.2)
[2020-03-15] MEDS: ACCU-CHEK COMFORT CURVE STRIP VI SCH ×4 (06:32→21:54)
[2020-03-15] MEDS: InsuLIN REG 1unit/0.01ml Soln (100units/ml) SC SCH ×4 (06:35→21:58)
--- NOTE | 2020-03-15 07:45 | NUR ---
RECEIVED PATIENT ALERT AND ORIENTED X2, NOT IN DISTRESS, DIMINISHED SOUNDS IN BILATERAL LUNG LOBES, RR=20 SAT=94%, DEEP BREATHING AND COUGHING ENCOURAGED, DEMONSTRATED AND VERBALIZED UNDERSTANDING, DENIED SOB AND CHEST PAIN, HEART RATE=92 SR ON TELE MONITOR, ABDOMEN SOFT WITH ACTIVE BS, TOLERATED BREAKFAST WELL, LAST BM=03/14/20 REPORTED, CASTANEDA CATH IN PLACE AND PATENT, DRAINING CLEAR YELLOW URINE, SKIN INTACT WARM TO TOUCH, RT. AND LT. ARM BRUISES NOTED, RESTING ON BED, HEAD OF BED ELEVATED, BED ON LOW POSITION, RAILS UP X2, CALL LIGHT ON REACH, WILL CONTINUE MONITORING.
[2020-03-15] MEDS: FERROUS SULFATE 325 MG TAB PO SCH ×3 (08:00→19:38)
[2020-03-15 08:37] VITALS: BP 131/67
--- NOTE | 2020-03-15 09:30 | NUR ---
BED DOLAN PROVIDED REQUESTED, LARGE CONSISTENT BROWN BM NOTED, RESTING ON BED, NOT IN DISTRESS, WILL CONTINUE MONITORING.
[2020-03-15] MEDS: SPIRONOLACTONE 25 MG TAB PO SCH (10:23)
[2020-03-15] MEDS: CARVEDILOL 3.125 MG TAB PO SCH ×2 (10:24→21:54)
[2020-03-15 12:37] VITALS: BP 110/76
--- NOTE | 2020-03-15 13:00 | NUR ---
ALERT AND ORIENTED X2, NOT IN DISTRESS, TOLERATED 100% OF PROVIDED LUNCH TRAY, RESTING ON BED, WILL CONTINUE MONITORING.
[2020-03-15 16:37] VITALS: BP 130/70
--- NOTE | 2020-03-15 19:23 | NUR ---
RESTING ON BED, HEAD OF BED ELEVATED, BED ON LOW POSITION, RAILS UP X2, CALL LIGHT ON REACH, REPORT WAS GIVEN TO THE FACILITIES MANAGEMENT EXECUTIVE RN.
[2020-03-15] MEDS: TAMSULOSIN HYDROCHLORIDE 0.4 MG CAP PO SCH (19:35)
[2020-03-15] MEDS: rifAXIMin 550 MG TAB PO SCH (21:54)
[2020-03-15 22:00] VITALS: BP 127/61
[2020-03-16] MEDS: LACTULOSE 20Gm/30ML SOLN PO SCH ×5 (00:14→23:56)
[2020-03-16 05:00] VITALS: BP 111/54
[2020-03-16] MEDS: ACCU-CHEK COMFORT CURVE STRIP VI SCH ×4 (06:24→22:18)
[2020-03-16] MEDS: InsuLIN REG 1unit/0.01ml Soln (100units/ml) SC SCH ×4 (06:27→22:20)
[2020-03-16 07:12] LABS: INR 1.13 (0.9-1.15); Partial Thromboplastin Time 28.3 sec (23.0-31.2)
[2020-03-16 07:21] LABS: Potassium 4.1 mmol/L (3.5-5.1)
[2020-03-16 07:39] LABS: Albumin 2.9 g/dL (3.4-5.0); BUN/Creatinine Ratio 17.9; Bilirubin, Total 1.7 mg/dL (0.2-1.0); Calcium 9.2 mg/dL (8.5-10.1); Total Protein 5.7 g/dL (6.4-8.2)
[2020-03-16 08:00] VITALS: BP 121/72
--- NOTE | 2020-03-16 08:00 | NUR ---
RECEIVED PATIENT ALERT AND ORIENTED X2, NOT IN DISTRESS, DIMINISHED SOUNDS IN BILATERAL LUNG LOBES, RR=18 SAT=95%, DEEP BREATHING AND COUGHING ENCOURAGED, VERBALIZED UNDERSTANDING, DENIED SOB AND CHEST PAIN, HEART RATE=86 SR ON TELE MONITOR, ABDOMEN SOFT WITH ACTIVE BS, LAST BM=THIS MORNING REPORTED, CASTANEDA CATH IN PLACE AND PATENT, DRAINING CLEAR ASHLYN COLORED URINE, SKIN INTACT WARM TO TOUCH, GENERALIZED WEAKNESS NOTED, RESTING ON BED, HEAD OF BED ELEVATED, BED ON LOW POSITION, RAILS UP X2, CALL LIGHT ON REACH, WILL CONTINUE MONITORING.
[2020-03-16] MEDS: FERROUS SULFATE 325 MG TAB PO SCH ×2 (08:15→17:27)
[2020-03-16] MEDS: SPIRONOLACTONE 25 MG TAB PO SCH (09:45)
[2020-03-16] MEDS: CARVEDILOL 3.125 MG TAB PO SCH ×2 (09:46→22:18)
[2020-03-16] MEDS: PANTOPRAZOLE 40 MG TAB PO SCH (09:47)
[2020-03-16] MEDS: rifAXIMin 550 MG TAB PO SCH ×2 (09:51→22:18)
--- NOTE | 2020-03-16 11:00 | NUR ---
BED DOLAN PROVIDED REQUESTED, LARGE SOFT BROWN BM NOTED, SKIN KEEP CLEAN AND DRY, NOT IN DISTRESS, DENIED PAIN AT THIS MOMENT, WILL CONTINUE MONITORING.
[2020-03-16 12:00] VITALS: BP 103/66
--- NOTE | 2020-03-16 14:57 | NUR ---
DR. PUGH WAS CONTACTED FOR FOLLOW UP AND D/C PLAN UPDATES REQUESTED BY THE , DR. DE LA CRUZ COMMUNICATED AND UPDATED REPORTED.
--- NOTE | 2020-03-16 15:00 | NUR ---
DR. DE LA CRUZ WAS CONTACTED FOR D/C CASTANEDA CLARIFICATION, CASTANEDA WILL BE D/C ON 03/17/[address] PUGH, WILL CONTINUE MONITORING.
[2020-03-16 16:00] VITALS: BP 140/65
[2020-03-16] MEDS: TAMSULOSIN HYDROCHLORIDE 0.4 MG CAP PO SCH (17:28)
--- NOTE | 2020-03-16 19:08 | NUR ---
OPENING SHIFT NOTE: Assumed care of patient. Patient awake, alert and oriented x3, no s/s of SOB or distress, patient denies pain. Bed in lowest locked position with two side rails raised, call roblero within reach and bed alarm activated for safety. Instructed on poc and encouraged to call for assistance, all questions and concerns addressed, patient verbalizes understanding. Will continue to monitor Q1 hr and PRN.
--- NOTE | 2020-03-16 19:35 | NUR ---
RESTING ON BED, HEAD OF BED ELEVATED, BED ON LOW POSITION, RAILS UP X2, CALL LIGHT ON REACH, REPORT WAS GIVEN TO THE DIRECTOR OF CASINO RN.
--- NOTE | 2020-03-16 20:21 | NUR ---
SPOKE TO FAMILY Son Severiano called, password provided, updated on POC, all questions and concerns addressed. Son states that he has scheduled a gurney ride through [facility] for patient's transport home after discharge and requests that the doctor call and update them upon discharge for 03/17/20.
[2020-03-16 22:00] VITALS: BP 121/72
[2020-03-17 05:00] VITALS: BP 126/66
[2020-03-17] MEDS: LACTULOSE 20Gm/30ML SOLN PO SCH ×3 (05:53→18:00)
[2020-03-17 05:59] LABS: Basophils # (auto) 0 10 ^3/uL (0-0.2); Basophils % (auto) 0.5 % (0.0-2.0); Eosinophils # (auto) 0.2 10 ^3/uL (0-0.8); Hemoglobin 11.3 g/dL (13.5-17.5); Lymphocytes # (auto) 0.7 10 ^3/uL (0.4-5.4); Lymphocytes % (auto) 22.3 % (10.0-50.0); Monocytes # (auto) 0.4 10 ^3/uL (0-1.3)
[2020-03-17 06:01] LABS: Eosinophils % (auto) 6.6 % (0.0-7.0); Hematocrit 32.3 % (41.0-53.0); Mean Corpuscular Hemoglobin 36.8 pg (28.0-32.0); Mean Corpuscular Hgb Conc. 35.1 g/dL (32.0-36.0); Mean Corpuscular Volume 104.8 fL (80.0-100.0); Monocytes % (auto) 11.5 % (0.0-12.0); Neutrophils # (auto) 1.9 10 ^3/uL (1.6-8.6); Neutrophils % (auto) 59.1 % (37.0-80.0); Nucleated Red Blood Cells % 0.2 %; Platelet Count (auto) 62 10^3/uL (140-450); Red Blood Cells 3.09 10^6/uL (4.5-5.90); Red Cell Distribution Width 14.5 % (11.8-14.3); White Blood Cell 3.2 10^3/uL (4.4-10.8)
[2020-03-17 06:25] LABS: Albumin 2.7 g/dL (3.4-5.0); Calcium 9.1 mg/dL (8.5-10.1); Potassium 4.4 mmol/L (3.5-5.1)
[2020-03-17 06:29] LABS: BUN/Creatinine Ratio 14.3; Bilirubin, Total 1.6 mg/dL (0.2-1.0); Total Protein 5.6 g/dL (6.4-8.2)
[2020-03-17] MEDS: InsuLIN REG 1unit/0.01ml Soln (100units/ml) SC SCH ×3 (06:59→16:40)
[2020-03-17] MEDS: ACCU-CHEK COMFORT CURVE STRIP VI SCH ×3 (06:59→16:38)
--- NOTE | 2020-03-17 08:00 | NUR ---
OPENING SHIFT NOTE ASSUMED CARE OF PATIENT AWAKE AND ALERT X2. NO S/S OF DISTRESS NOTED OR COMPLAINTS OF PAIN. PATIENT UPDATED ON POC FOR THE DAY AND ALL QUESTIONS ANSWERED. BED IS IN LOWEST, LOCKED POSITION WITH SIDE RAILS UP X2 AND CALL LIGHT WITHIN REACH. WILL CONTINUE TO MONITOR Q1H AND PRN.
[2020-03-17 08:54] VITALS: BP 118/68
[2020-03-17] MEDS: SPIRONOLACTONE 25 MG TAB PO SCH (09:53)
[2020-03-17] MEDS: PANTOPRAZOLE 40 MG TAB PO SCH (09:53)
[2020-03-17] MEDS: FERROUS SULFATE 325 MG TAB PO SCH ×2 (09:53→18:00)
[2020-03-17] MEDS: CARVEDILOL 3.125 MG TAB PO SCH (09:54)
[2020-03-17] MEDS: rifAXIMin 550 MG TAB PO SCH (09:54)
[2020-03-17] MEDS ORDERED: LACT10SO70 PO (10:22)
[2020-03-17] MEDS ORDERED: RIFA550T PO (10:22)
--- NOTE | 2020-03-17 11:00 | NUR ---
Lo catheter dc'd Order to discontinue lo catheter. Lo dc'd with clean technique following deflation of balloon. Patient tolerated well with no complaints of pain. Continue care.
[2020-03-17 11:29] VITALS: BP 118/68
[2020-03-17 13:00] VITALS: BP 115/59
[2020-03-17 16:29] VITALS: BP 105/67
[2020-03-17] MEDS: TAMSULOSIN HYDROCHLORIDE 0.4 MG CAP PO SCH (18:00)
--- NOTE | 2020-03-17 20:10 | NUR ---
Patient's son called for an update, password provided. He stated he will call the transport company to find out their ETA.
--- NOTE | 2020-03-17 20:45 | NUR ---
Discharge instructions given as ordered. Encourage to follow up with PMD as instructed. All questions and concerns addressed. Patient verbalized understanding. Medication reconciliation form completed and copy given to patient. Telemetry unit returned to ICU. Patient taken to vehicle via wheelchair with all personal belongings, accompanied by staff and family member. No distress noted at time of departure.
== END 2020-03-17 20:45 | disposition home or self-care (01) | DRG 441 ==
LOC: ER 13:20 → EDBD 13:20 → TELE 13:21 → TELE-WESTW 21:37
PROVIDERS: ADMIT Nurse Practitioner Acute Care; ATTEND Internal Medicine
DX: K72.90 Hepatic failure, unspecified without coma (principal); N17.0 Acute kidney failure with tubular necrosis; I13.0 Hypertensive heart and chronic kidney disease with heart failure and stage 1 through stage 4 chronic kidney disease, or unspecified chronic kidney disease; E44.0 Moderate protein-calorie malnutrition; D61.818 Other pancytopenia; K76.6 Portal hypertension; K74.60 Unspecified cirrhosis of liver; E66.01 Morbid (severe) obesity due to excess calories; D75.89 Other specified diseases of blood and blood-forming organs; D69.6 Thrombocytopenia, unspecified; N18.30 Chronic kidney disease, stage 3 unspecified; I50.9 Heart failure, unspecified; E11.22 Type 2 diabetes mellitus with diabetic chronic kidney disease; J44.9 Chronic obstructive pulmonary disease, unspecified; I25.10 Atherosclerotic heart disease of native coronary artery without angina pectoris; Z88.5 Allergy status to narcotic agent; Z95.1 Presence of aortocoronary bypass graft; Z68.39 Body mass index [BMI] 39.0-39.9, adult; Z79.4 Long term (current) use of insulin; Z79.82 Long term (current) use of aspirin; Z80.0 Family history of malignant neoplasm of digestive organs; Z82.49 Family history of ischemic heart disease and other diseases of the circulatory system; Z83.3 Family history of diabetes mellitus; D50.9 Iron deficiency anemia, unspecified
CPT/HCPCS: 36415; 70450; 71045; 74176; 80053; 80061; 80320; 81001; 82140; 82962; 83036; 83605; 84484; 85025; 85610; 85730; 87040; 93306; 94640; 96361; 96374; 97110; 97530; G0378; J1815